=== PATIENT | female | born 1940 | race Caucasian/White ===

== ENCOUNTER 2017-01-08 09:57 | Outpatient (CLI) | payer MEDICARE, OTHER ==
--- NOTE | 2017-01-08 15:18 | DEXA Report ---
DEXA SCAN: 01/08/2017 CLINICAL INDICATION: Osteoporosis. TECHNIQUE: Dual energy x-ray absorptiometry (DXA) was performed on a [employer] - ASO system. Regions measured are the AP spine, femoral neck, and, if needed, forearm. COMPARISON: None. In accordance with the International Society for Clinical Densitometry (ISCD) guidelines, data from previous exams may be reanalyzed using current recommendations and techniques. This is done to allow a more accurate basis for comparison with the current study. FINDINGS: The data for the hip is as follows: REGION BMD (g/cm/cm) T-SCORE Z-SCORE Neck 0.922 -0.8 1.3 TOTAL 0.832 -1.4 0.6 NOTE: The femoral neck or total proximal femur, whichever is lowest, is used for classification. The data for the forearm is as follows: REGION BMD (g/cm/cm) T-SCORE Z-SCORE 1/3 0.512 -4.2 -1.9 NOTE: The 33% radius of the nondominant forearm is used for classification. IMPRESSION: 1. THE WHO CLASSIFICATION BASED ON THE INTERNATIONAL REFERENCE STANDARD IS OSTEOPOROSIS (REFERENCE DISTAL THIRD LEFT RADIUS). 2. LEFT FOREARM EVALUATION PERFORMED SECONDARY TO PREVIOUS LUMBAR SPINE FUSION. RECOMMENDATION: Patients with diagnosis of osteoporosis or osteopenia should have regular bone mineral density assessment. For those eligible for Medicare, routine testing is allowed once every 2 years. Testing frequency can be increased for patients who have rapidly progressing disease or for those who are receiving medical therapy to restore bone mass. COMMENT: World Health Organization (WHO) definitions for osteoporosis and osteopenia: NORMAL BMD: T-score at -1.0 or higher, fracture risk is low. OSTEOPENIA BMD: T-score between -1.0 and -2.5, fracture risk is increased. OSTEOPOROSIS BMD: T-score at -2.5 or lower, fracture risk high. National Osteoporosis Foundation recommends: 1. Obtain adequate dietary calcium (at least 1200 mg per day) and vitamin D (400 -800 international units per day). 2. Participate, as appropriate, in regular weightbearing and muscle- strengthening exercise. 3. Avoid tobacco use and reduce alcohol and caffeine intake. 4. For more detailed information see the website at www.NOF.org. MTDD
== END 2017-01-08 09:58 | disposition home or self-care (01) ==
LOC: DI 09:57
PROVIDERS: ATTEND Family Medicine
DX: M81.0 Age-related osteoporosis without current pathological fracture (principal)
CPT/HCPCS: 77080; 77081

== ENCOUNTER 2017-01-20 15:20 | Outpatient (CLI) | payer MEDICARE, OTHER ==
--- NOTE | 2017-01-21 11:43 | XRAY Report ---
RIGHT HIP AND PELVIS: 01/20/2017 CLINICAL INDICATION: Right hip pain. COMPARISON: 06/10/2007 FINDINGS: Frontal view of the hips and pelvis and frogleg lateral view of the right hip demonstrate no evidence of acute fracture. Mild osteoarthritis is present, with chondrocalcinosis. There has been interval spinal fusion, with hardware extending to S1 and the iliac crest. IMPRESSION: MILD OSTEOARTHRITIS, WITH CHONDROCALCINOSIS. NO EVIDENCE OF ACUTE FRACTURE. MTDD
--- NOTE | 2017-01-21 11:44 | XRAY Report ---
TWO-VIEW RIGHT KNEE: 01/20/2017 CLINICAL INDICATION: Pain. FINDINGS: Standing frontal and lateral views of the right knee demonstrate mild osteoarthritis, with chondrocalcinosis. There is no evidence of fracture. No effusion is present. IMPRESSION: MILD OSTEOARTHRITIS. MTDD
== END 2017-01-20 15:21 | disposition home or self-care (01) ==
LOC: DI 15:20
PROVIDERS: ATTEND Family Medicine
DX: M16.11 Unilateral primary osteoarthritis, right hip (principal); M11.251 Other chondrocalcinosis, right hip; M17.12 Unilateral primary osteoarthritis, left knee

== ENCOUNTER 2017-02-18 14:41 | Outpatient (CLI) | payer MEDICARE, OTHER ==
[2017-02-18 19:25] LABS: BASOPHILS % (AUTO) 0.8 %; EOSINOPHILS # (AUTO) 0.1 10^3/uL (0.0-0.7); HCT - HEMATOCRIT 37.2 % (37.0-47.0); HGB - HEMOGLOBIN 12.3 g/dL (12.0-16.0); LYMPHOCYTES # (AUTO) 2.3 10^3/uL (1.5-3.5); LYMPHOCYTES % (AUTO) 40.4 %; MEAN CORPUSCULAR VOLUME 90.7 fL (81.0-99.0); MEAN PLATELET VOLUME 8.1 fL (7.9-10.8); MONOCYTES # (AUTO) 0.7 10^3/uL (0.0-1.0); MONOCYTES % (AUTO) 12.2 %; NEUTROPHILS # (AUTO) 2.6 10^3/uL (1.5-6.6); NEUTROPHILS % (AUTO) 44.6 %; NUCLEATED RED BLOOD CELLS AUTO 0.1 /100WBC; RED CELL DISTRIBUTION WIDTH 12.8 % (12.0-15.0); UNCORRECTED WHITE BLOOD COUNT 5.8 x10^3/uL; WHITE BLOOD COUNT 5.8 x10^3/uL (4.8-10.8)
[2017-02-18 19:49] LABS: ALBUMIN/GLOBULIN RATIO 1.8 (1.0-2.2); BILIRUBIN,TOTAL 0.7 mg/dL (0.2-1.0); BUN - BLOOD UREA NITROGEN 12 mg/dL (6-20); CALCIUM 9.2 mg/dL (8.5-10.3); CARBON DIOXIDE - CO2 28 mmol/L (21-32); CHLORIDE 100 mmol/L (101-111); CHOL/HDL RATIO 2.5 (<4.4); CHOLESTEROL 181 mg/dL; CREATININE 0.6 mg/dL (0.4-1.0); GFR - MDRD 97 (>89); GLUCOSE 97 mg/dL (70-100); HDL CHOLESTEROL 73 mg/dL; SODIUM 136 mmol/L (135-145); TOTAL PROTEIN 6.6 g/dL (6.7-8.2); TRIGLYCERIDES 39 mg/dL
[2017-02-18 20:15] LABS: LDL CHOLESTEROL,DIRECT 97 mg/dL
== END 2017-02-18 14:42 | disposition home or self-care (01) ==
LOC: LAB.WCP 14:41
PROVIDERS: ATTEND Family Medicine
DX: I70.0 Atherosclerosis of aorta (principal); D46.9 Myelodysplastic syndrome, unspecified
CPT/HCPCS: 36415; 80053; 80061; 85025

== ENCOUNTER 2017-09-13 09:44 | Outpatient (CLI) | payer MEDICARE, OTHER ==
--- NOTE | 2017-09-15 17:39 | Mammography Report ---
DATE OF SERVICE: 09/13/2017 DIGITAL SCREENING MAMMOGRAM: 09/13/2017 CLINICAL INDICATION: A 76-year-old with history of benign right breast biopsy, for screening. COMPARISON: 09/2014, 12/2007. TECHNIQUE: Routine CC and MLO projections were obtained of the breasts. Bilateral laterally exaggerated craniocaudal views. FINDINGS: The breasts again demonstrate heterogeneously dense fibroglandular parenchyma bilaterally. Coarse and punctate, typically benign calcifications are present. Postbiopsy changes in the right breast are stable. No suspicious masses, clustered microcalcifications, or regions of architectural distortion are identified. IMPRESSION: BENIGN FINDINGS. RECOMMENDATION: ROUTINE ANNUAL SCREENING UNLESS OTHERWISE CLINICALLY INDICATED. BIRADS CATEGORY 2-BENIGN FINDINGS. STANDARD QUALIFYING STATEMENTS: 1. This examination was reviewed with the aid of Computer-Aided Detection (CAD). 2. A negative or benign imaging report should not delay biopsy if clinically suspicious findings are present. Consider surgical consultation if warranted. More than 5% of cancers are not identified by imaging. 3. Dense breasts may obscure an underlying neoplasm. TD: 09/15/2017 18:38
== END 2017-09-13 09:45 | disposition home or self-care (01) ==
LOC: DI 09:44
PROVIDERS: ATTEND Family Medicine
DX: Z12.31 Encounter for screening mammogram for malignant neoplasm of breast (principal)
CPT/HCPCS: 77067

== ENCOUNTER 2017-12-23 14:26 | Outpatient (CLI) | payer MEDICARE, OTHER ==
[2017-12-23 19:21] LABS: BASOPHILS % (AUTO) 0.5 %; EOSINOPHILS % (AUTO) 0.4 %; HGB - HEMOGLOBIN 13.2 g/dL (12.0-16.0); LYMPHOCYTES # (AUTO) 1.9 10^3/uL (1.5-3.5); LYMPHOCYTES % (AUTO) 37.2 %; MEAN CORPUSCULAR HEMOGLOBIN 29.3 pg (27.0-31.0); MEAN CORPUSCULAR HGB CONC 32.7 g/dL (32.0-36.0); MEAN CORPUSCULAR VOLUME 89.5 fL (81.0-99.0); MEAN PLATELET VOLUME 8.3 fL (7.9-10.8); MONOCYTES # (AUTO) 0.6 10^3/uL (0.0-1.0); MONOCYTES % (AUTO) 11.5 %; NEUTROPHILS # (AUTO) 2.5 10^3/uL (1.5-6.6); NEUTROPHILS % (AUTO) 50.4 %; PLT - PLATELET COUNT 280 10^3/uL (130-450); RED BLOOD COUNT 4.49 10^6/uL (4.20-5.40); RED CELL DISTRIBUTION WIDTH 13.5 % (12.0-15.0)
[2017-12-23 19:39] LABS: ALBUMIN 4.3 g/dL (3.2-5.5); ALBUMIN/GLOBULIN RATIO 1.8 (1.0-2.2); BILIRUBIN,TOTAL 0.3 mg/dL (0.2-1.0); CALCIUM 8.9 mg/dL (8.5-10.3); CREATININE 0.7 mg/dL (0.4-1.0); TOTAL PROTEIN 6.7 g/dL (6.7-8.2)
== END 2017-12-23 14:27 | disposition home or self-care (01) ==
LOC: LAB.WCP 14:26
PROVIDERS: ATTEND Family Medicine
DX: R11.10 Vomiting, unspecified (principal); D64.9 Anemia, unspecified
CPT/HCPCS: 36415; 80053; 85025

== ENCOUNTER 2018-02-13 12:45 | Outpatient (CLI) | payer MEDICARE, OTHER | END 2018-02-13 12:46 | disposition home or self-care (01) | LOC: DI 12:45 | PROVIDERS: ATTEND Family Medicine | DX: I49.9 Cardiac arrhythmia, unspecified (principal); I51.9 Heart disease, unspecified | CPT/HCPCS: 93306 ==

== ENCOUNTER 2018-10-10 14:01 | Outpatient (CLI) | payer MEDICARE, OTHER ==
--- NOTE | 2018-10-11 14:58 | XRAY Report ---
Reason: FOOT PAIN, RIGHT Procedure Date: 10/10/2018 Accession Number: [id number] / [id number] Procedure: WCP - Foot 3 View RT CPT Code: FULL RESULT: EXAM: RIGHT FOOT RADIOGRAPHY EXAM DATE: 10/10/2018 02:12 PM. CLINICAL HISTORY: Chronic right foot pain. COMPARISON: None. TECHNIQUE: 3 views. FINDINGS: Bones: Decreased mineralization of the bones. No fracture. No focal bone lesion. Small accessory tarsal navicular bone. Joints: Chronic valgus deformities involving the right second and third distal interphalangeal joints. Mild valgus deformity at the right first metatarsophalangeal joint without hallux valgus. Soft Tissues: Prominent soft tissues medial and dorsal to the head of the right first metatarsal bone with curvilinear soft tissue calcifications. Remaining soft tissue structures are unremarkable. IMPRESSION: 1. Curvilinear soft tissue calcifications medial to the head of the right first metatarsal bone, with soft tissue bunion. 2. Valgus deformity involving the right first metatarsophalangeal joint, but without hallux valgus. 3. Decreased mineralization of the bones. 4. Chronic valgus angulation of the distal interphalangeal joints of the right second and third toes. RADIA
== END 2018-10-10 14:02 | disposition home or self-care (01) ==
LOC: DI.WCP 14:01
PROVIDERS: ATTEND Family Medicine
DX: M21.071 Valgus deformity, not elsewhere classified, right ankle (principal); M79.89 Other specified soft tissue disorders

== ENCOUNTER 2018-11-23 13:04 | Outpatient (CLI) | payer MEDICARE, OTHER ==
--- NOTE | 2018-11-23 16:37 | Mammography Report ---
Reason: MASTALGIA Procedure Date: 11/23/2018 Accession Number: [id number] / [id number] Procedure: STEVEN - Diagnostic Dig Bilat CPT Code: FULL RESULT: EXAM: Diagnostic Dig Bilat, Breast Unilateral Limited DATE: 11/23/2018 1:47 PM CLINICAL HISTORY: Focal pain per patient/intermittent palpable lump upper outer right breast for 6 months. No reported personal or family history of breast cancer. TECHNIQUE: (B) - Bilateral Bilateral CC and MLO views were obtained. Additional 90 degree right breast 2-D 3-D imaging was obtained. Real-time ultrasound of the right breast was performed by both the technologist and the radiologist. COMPARISON: 09/13/2017 through 10/11/2014 PARENCHYMAL PATTERN: (D) - The breasts demonstrate heterogeneously dense fibroglandular parenchyma bilaterally. FINDINGS: Right breast: There are no suspicious masses, calcifications or areas of nonoperative distortion. Stable operative changes after prior excisional biopsy in the central breast. There is no mammographic finding of concern in the region of focal pain per patient upper outer breast posterior middle depth, marked with a BB. Targeted breast ultrasound is performed. Area of clinical symptoms of focal pain per patient and focal fullness at exam was reproduced at physical exam. The area corresponds to normal ridge of fibroglandular tissue; no masses or concerning sonographic findings. 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 Left breast: There are no suspicious masses, calcifications, or areas of distortion. IMPRESSION: Right breast: Benign imaging findings. No imaging finding of concern in the region of the focal symptoms per patient. Benign. BI-RADS Category 2. Clinical follow-up for symptoms is recommended. Patient was advised to return for further evaluation for any increase in current symptoms or new symptoms/concerns. Otherwise recommend annual screening mammography. Left breast: Negative. BI-RADS Category 1. Recommend annual screening mammography. RECOMMENDATION: (ANNUAL) - Recommend routine annual screening mammography. BI-RADS CATEGORY: (2) - Benign Findings STANDARD QUALIFYING STATEMENTS: 1. This examination was not reviewed with the aid of Computer-Aided Detection (CAD). 2. A negative or benign imaging report should not preclude biopsy if clinically suspicious findings are present. 3. Dense breasts may obscure an underlying neoplasm. 4. This examination was reviewed with the aid of 3D breast imaging (tomosynthesis).
== END 2018-11-23 13:05 | disposition home or self-care (01) ==
LOC: DI 13:04
PROVIDERS: ATTEND Family Medicine
DX: N64.4 Mastodynia (principal)
CPT/HCPCS: 76642; 77066

== ENCOUNTER 2019-05-01 08:00 | Outpatient (CLI) | payer MEDICARE, OTHER | END 2019-05-01 23:59 | disposition home or self-care (01) | LOC: LAB.R 08:00 | PROVIDERS: ATTEND Physician Assistant Medical | DX: R30.0 Dysuria (principal) | CPT/HCPCS: 87086 ==

== ENCOUNTER 2019-07-27 13:46 | Outpatient (CLI) | payer MEDICARE, OTHER | END 2019-07-27 13:47 | disposition critical access hospital (66) | LOC: EMS 13:46 | PROVIDERS: ATTEND Surgery | DX: R07.2 Precordial pain (principal); R06.02 Shortness of breath; R03.1 Nonspecific low blood-pressure reading; R42 Dizziness and giddiness | CPT/HCPCS: A0425; A0427 ==

== ENCOUNTER 2019-07-27 14:07 | Emergency (ER) | payer MEDICARE, OTHER ==
--- NOTE | 2019-07-27 14:23 | ED Physician Documentation ---
PD HPI CHEST PAIN - Stated complaint Stated Complaint: CP - Chief complaint Chief Complaint: Cardiac - History obtained from History obtained from: Patient (She was at the doctor's office today sitting in the waiting room and she started to feel substernal chest pressure. This happened maybe around 1245. She was referred in from the doctor's office for further evaluation and treatment. She describes it is a lower to mid sternal pressure which is nonradiating. She felt otherwise funny but denied shortness of breath. No pedal edema or calf pain.She had aspirin prior to arrival and nitroglycerin which she says was not really helpful. She has a chronically abnormal EKG, had a preop work-up last year before shoulder replacement which was negative. 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: Hysterectomy HEENT: Cataracts, Tonsil/Adenoidectomy - Present Medications Home Medications: Ambulatory Orders Medication Instructions Recorded Confirmed Pramipexole [Mirapex] 0.25 mg PO DAILY 05/24/13 03/29/14 Multivitamin [Multi-Vitamin Daily] 1 each PO DAILY 05/25/13 03/29/14 Calcium Carb, Citrate/Vit D3 1 ea PO DAILY 03/29/14 03/29/14 [Citracal + D ER Tablet] Cholecalciferol (Vitamin D3) 1,000 unit PO DAILY 03/29/14 03/29/14 [Vitamin D] Gabapentin 200 mg PO BID 03/29/14 03/29/14 - Allergies Allergies/Adverse Reactions: Allergies Allergy/AdvReac Type Severity Reaction Status Date / Time Penicillins Allergy Mild Rash Verified 07/27/19 14:17 Tetracyclines Allergy Mild Rash Verified 07/27/19 14:17 PD ED PE NORMAL - Vitals Vital signs reviewed: Yes - General General: Alert and oriented X 3, No acute distress - HEENT HEENT: PERRL, EOMI - Neck Neck: Supple, no meningeal sign, No bony TTP - Cardiac Cardiac: RRR, No murmur - Respiratory Respiratory: No respiratory distress, Clear bilaterally - Abdomen Abdomen: Non tender - Extremities Extremities: No edema, No calf tenderness / cord - Neuro Neuro: Alert and oriented X 3, Normal speech Results - Vitals Vitals: Vital Signs - 24 hr 07/27/19 07/27/19 07/27/19 14:07 14:59 15:15 Temperature 98.2 C H Heart Rate 67 60 55 L Respiratory 18 14 14 Rate Blood Pressure 129/77 117/69 114/64 O2 Saturation 100 98 99 07/27/19 07/27/19 15:41 16:59 Temperature Heart Rate 58 L 63 Respiratory 14 15 Rate Blood Pressure 123/62 124/59 L O2 Saturation 97 98 Oxygen O2 Source Room air - EKG (time done) 1410 Rate: Rate (enter#) (62) Rhythm: NSR (With PAC) [place]: LAD Ischemia: Normal ST segments. No: ST elevation c/w ischemia, ST depression Computer interpretation: Agree with computer - Labs Labs: Laboratory Tests 07/27/19 07/27/19 07/27/19 14:25 14:25 14:25 WBC 7.3 RBC 4.12 L Hgb 12.2 Hct 38.8 MCV 94.2 MCH 29.6 MCHC 31.4 L RDW 12.7 Plt Count 276 MPV 9.2 Neut # (Auto) 3.8 Lymph # (Auto) 2.4 [place] # (Auto) 0.9 Eos # (Auto) 0.1 Baso # (Auto) 0.1 Absolute Nucleated RBC 0.00 Nucleated RBC % 0.0 Sodium 139 Potassium 4.0 Chloride 102 Carbon Dioxide 28 Anion Gap 9.0 BUN 20 Creatinine 0.8 Estimated GFR (MDRD) 70 L Glucose 101 H Calcium 9.5 Total Bilirubin 0.4 AST 18 ALT 13 Alkaline Phosphatase 46 Troponin I High Sens 4.4 Total Protein 7.2 Albumin 4.3 Globulin 2.9 Albumin/Globulin Ratio 1.5 Lipase 29 07/27/19 16:41 WBC RBC Hgb Hct MCV MCH MCHC RDW Plt Count MPV Neut # (Auto) Lymph # (Auto) [place] # (Auto) Eos # (Auto) Baso # (Auto) Absolute Nucleated RBC Nucleated RBC % Sodium Potassium Chloride Carbon Dioxide Anion Gap BUN Creatinine Estimated GFR (MDRD) Glucose Calcium Total Bilirubin AST ALT Alkaline Phosphatase Troponin I High Sens 3.2 Total Protein Albumin Globulin Albumin/Globulin Ratio Lipase PD MEDICAL DECISION MAKING - ED course ED course: 78-year-old woman with non-typical chest pain starting today. Pretty mild here but persistence but delta troponins were negative and low. Departure - Departure Disposition: Home, Self Care Clinical Impression: Chest pain Qualifiers: Chest pain type: unspecified Qualified Code(s): R07.9 - Chest pain, unspecified Condition: Good Record reviewed to determine appropriate education?: Yes Instructions: ED Chest Pain NonCardiac Comments: Call your doctor to arrange a follow-up appointment, make the next available appointment. In the interim, return anytime if worse or if new symptoms develop.
[2019-07-27 14:33] LABS: BASOPHILS # (AUTO) 0.1 10^3/uL (0.0-0.1); BASOPHILS % (AUTO) 0.8 %; EOSINOPHILS # (AUTO) 0.1 10^3/uL (0.0-0.7); HGB - HEMOGLOBIN 12.2 g/dL (12.0-16.0); LYMPHOCYTES # (AUTO) 2.4 10^3/uL (1.5-3.5); LYMPHOCYTES % (AUTO) 33.3 %; MEAN CORPUSCULAR HEMOGLOBIN 29.6 pg (27.0-31.0); MEAN CORPUSCULAR HGB CONC 31.4 g/dL (32.0-36.0); MEAN CORPUSCULAR VOLUME 94.2 fL (81.0-99.0); MEAN PLATELET VOLUME 9.2 fL (7.9-10.8); MONOCYTES # (AUTO) 0.9 10^3/uL (0.0-1.0); MONOCYTES % (AUTO) 11.8 %; NEUTROPHILS # (AUTO) 3.8 10^3/uL (1.5-6.6); NEUTROPHILS % (AUTO) 52.7 %; PLT - PLATELET COUNT 276 10^3/uL (130-450); RED BLOOD COUNT 4.12 10^6/uL (4.20-5.40); RED CELL DISTRIBUTION WIDTH 12.7 % (12.0-15.0); WHITE BLOOD COUNT 7.3 x10^3/uL (4.8-10.8)
[2019-07-27 14:47] LABS: ALBUMIN 4.3 g/dL (3.2-5.5); ALBUMIN/GLOBULIN RATIO 1.5 (1.0-2.2); BILIRUBIN,TOTAL 0.4 mg/dL (0.2-1.0); CALCIUM 9.5 mg/dL (8.5-10.3); CREATININE 0.8 mg/dL (0.4-1.0); TOTAL PROTEIN 7.2 g/dL (6.7-8.2)
--- NOTE | 2019-07-27 14:56 | XRAY Report ---
Reason: chest pain Procedure Date: 07/27/2019 Accession Number: [id number] / [id number] Procedure: XR - Chest 1 View X-Ray CPT Code: 60340 Final Report FULL RESULT: EXAM: CHEST RADIOGRAPHY EXAM DATE: 07/27/2019 02:41 PM. CLINICAL HISTORY: Chest pain. COMPARISON: None. TECHNIQUE: 2 view. FINDINGS: LUNGS: Biapical pleural/parenchymal thickening. The lungs are otherwise clear. PLEURA: No significant pleural effusion. No clinically significant pneumothorax. MEDIASTINUM: The cardiomediastinal silhouette is unremarkable. BONES: Status post thoracolumbar fusion which is partially imaged. Status post left rotator cuff repair and right reverse total shoulder arthroplasty. IMPRESSION: No acute cardiopulmonary abnormality. RADIA
[2019-07-27 17:37] VITALS: BP 135/67
== END 2019-07-27 17:42 | disposition home or self-care (01) ==
LOC: EDUNIT# → ED 14:07
DX: R07.9 Chest pain, unspecified (principal)
CPT/HCPCS: 36415; 71045; 80053; 83690; 84484; 85025; 93005; 99284

== ENCOUNTER 2019-08-02 13:23 | Emergency (ER) | payer MEDICARE, OTHER ==
--- NOTE | 2019-08-02 14:46 | ED Physician Documentation ---
PD HPI SYNCOPE - Stated complaint Stated Complaint: DIZZY/SOA - Chief complaint Chief Complaint: Resp - History obtained from History obtained from: Patient - History of Present Illness Witnessed: Unwitnessed Timing - onset: Today Duration: Hours (onset of feeling dizzy and off balance (felt like "i was on a ship that was falling forward over a wave") and was veering to the left when tried walking to bathroom. No focal weakness. No visual change. Was by herself so was not talking, but subsequently did call for help and was able to converse okay. Noted feeling some dyspnea and lightheaded as well, that developed after up and walking. Noted the dizziness first when getting up out of bed. Symptoms faded after about 1/2 hour. Feeling just some movement feeling with head ROM, but not feeling ataxic.) Preceding symptoms: No: Chest pain, Dyspnea, Abdominal pain, Light headed Associated symptoms: Headache (mild), Dyspnea. No: Chest pain, Abdominal pain Contributing factors: Decreased PO intake, Just stood up (rolled over in bed and felt some dizziness then worse getting up). No: Recent med change, Noxious stimulae Injury occurred: No: Fell Similar symptoms before: Has not had sx before Recently seen: Emergency Dept (had chest pain episode but work up negative for DC.) Review of Systems Constitutional: denies: Fever, Chills Nose: denies: Rhinorrhea / runny nose, Congestion Throat: denies: Sore throat Respiratory: denies: Cough GI: denies: Abdominal Pain, Nausea (but less appetite recently), Vomiting, Diarrhea : denies: Dysuria Musculoskeletal: denies: Neck pain, Back pain Neurologic: reports: Generalized weakness. 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 HEENT: Cataracts, Tonsil/Adenoidectomy - Present Medications Home Medications: Ambulatory Orders Medication Instructions Recorded Confirmed Pramipexole [Mirapex] 0.25 mg PO DAILY 05/24/13 03/29/14 Multivitamin [Multi-Vitamin Daily] 1 each PO DAILY 05/25/13 03/29/14 Calcium Carb, Citrate/Vit D3 1 ea PO DAILY 03/29/14 03/29/14 [Citracal + D ER Tablet] Cholecalciferol (Vitamin D3) 1,000 unit PO DAILY 03/29/14 03/29/14 [Vitamin D] Gabapentin 200 mg PO BID 03/29/14 03/29/14 Meclizine [Antivert] 25 mg PO Q6H PRN #30 tablet 08/02/19 dexAMETHasone [Decadron] 4 mg PO DAILY #5 tablet 08/02/19 - Allergies Allergies/Adverse Reactions: Allergies Allergy/AdvReac Type Severity Reaction Status Date / Time Penicillins Allergy Mild Rash Verified 07/27/19 14:17 Tetracyclines Allergy Mild Rash Verified 07/27/19 14:17 - Social History Does the pt smoke?: No Smoking Status: Never smoker Does the pt drink ETOH?: Yes Does the pt have substance abuse?: No - Immunizations Immunizations are current?: Yes PD ED PE NORMAL - Vitals Vital signs reviewed: Yes - General General: Alert and oriented X 3, No acute distress, Well developed/nourished - HEENT HEENT: PERRL, EOMI (no nystagmus noted), Ears normal, Pharynx benign, Other (hard to assess head impulse test as symptoms mostly faded now. 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 ) Eye Opening: Spontaneous Motor: Obeys Commands Verbal: Oriented GCS Score: 15 - Psych Psych: Normal mood, Normal affect Results - Vitals Vitals: Vital Signs - 24 hr 08/02/19 08/02/19 08/02/19 13:39 14:53 15:20 Temperature 36.7 C Heart Rate 66 60 72 Respiratory 18 22 20 Rate Blood Pressure 132/67 H 160/75 H 146/108 H O2 Saturation 100 100 100 08/02/19 08/02/19 08/02/19 16:32 17:25 18:36 Temperature Heart Rate 64 64 87 Respiratory 16 16 18 Rate Blood Pressure 147/71 H 142/66 H 135/68 H O2 Saturation 99 95 100 Oxygen O2 Source Room air - Labs Labs: Laboratory Tests 08/02/19 08/02/19 08/02/19 16:00 16:00 16:00 WBC 7.2 RBC 3.95 L Hgb 11.9 L Hct 36.8 L MCV 93.2 MCH 30.1 MCHC 32.3 RDW 12.7 Plt Count 272 MPV 9.6 Neut # (Auto) 4.7 Lymph # (Auto) 1.8 [place] # (Auto) 0.6 Eos # (Auto) 0.1 Baso # (Auto) 0.1 Absolute Nucleated RBC 0.00 Nucleated RBC % 0.0 Sodium 138 Potassium 3.7 Chloride 103 Carbon Dioxide 25 Anion Gap 10.0 BUN 14 Creatinine 0.6 Estimated GFR (MDRD) 97 Glucose 89 Calcium 9.5 Magnesium 2.2 Total Bilirubin 0.7 AST 19 ALT 13 Alkaline Phosphatase 44 Troponin I High Sens 4.4 B-Natriuretic Peptide Total Protein 7.0 Albumin 4.3 Globulin 2.7 Albumin/Globulin Ratio 1.6 Lipase 25 08/02/19 16:00 WBC RBC Hgb Hct MCV MCH MCHC RDW Plt Count MPV Neut # (Auto) Lymph # (Auto) [place] # (Auto) Eos # (Auto) Baso # (Auto) Absolute Nucleated RBC Nucleated RBC % Sodium Potassium Chloride Carbon Dioxide Anion Gap BUN Creatinine Estimated GFR (MDRD) Glucose Calcium Magnesium Total Bilirubin AST ALT Alkaline Phosphatase Troponin I High Sens B-Natriuretic Peptide 110 H Total Protein Albumin Globulin Albumin/Globulin Ratio Lipase - Rads (name of study) head and neck angio Radiology: Prelim report reviewed (no acute brain findings and no flow abnormalities), See rad report PD MEDICAL DECISION MAKING - ED course Complexity details: considered differential (symptoms sound more peripheral vertigo and has normal head CT/angio. Certainly is not completely accurate for posterior fossa changes. But her symptoms are gone and feeling better. Consider TIA posterior circulation vs peripheral vertigo. ), d/w patient Departure - Departure Disposition: 01 Home, Self Care Clinical Impression: Dizziness Dyspnea Qualifiers: Dyspnea type: shortness of breath Qualified Code(s): R06.02 - Shortness of breath Condition: Stable Record reviewed to determine appropriate education?: Yes Instructions: ED Vertigo Unspecified Follow-Up: Richar Hoang DO [Primary Care Provider] - Prescriptions: dexAMETHasone [Decadron] 4 mg PO DAILY #5 tablet Meclizine [Antivert] 25 mg PO Q6H PRN #30 tablet PRN Reason: Vertigo Comments: Your chest x-ray and EKG and blood tests are normal. I do not see an neck obvious cause for your feeling of shortness of breath. Your heart rhythm and oxygenation are good as well. Regarding the dizzy feeling and off-balance, it sounds likely to be in your ear problem. For that take Decadron daily for the next several days presuming some inflammation in the inner ear. Also meclizine every 6 hours if needed for dizziness. Recheck if not improving well over the next few days. Return if worsening Discharge Date/Time: 08/02/19 18:56
[2019-08-02] MEDS ORDERED: IOVERSOL 320 100 ML VIAL IVP ONE ×2 (15:25→16:49)
--- NOTE | 2019-08-02 15:51 | XRAY Report ---
Reason: dyspnea Procedure Date: 08/02/2019 Accession Number: [id number] / [id number] Procedure: XR - Chest 1 View X-Ray CPT Code: 52261 Final Report FULL RESULT: EXAM: CHEST RADIOGRAPHY EXAM DATE: 08/02/2019 03:41 PM. CLINICAL HISTORY: Dyspnea. COMPARISON: CHEST 1 VIEW 07/27/2019 2:25 PM. TECHNIQUE: 1 view. FINDINGS: Lungs/Pleura: No focal opacities evident. No pleural effusion. No pneumothorax. Mediastinum: Within exam limitations, the cardiomediastinal contour is normal. Ectatic aorta Other: Thoracolumbar fusion. Right shoulder reverse arthroplasty. Left shoulder anchor IMPRESSION: No active cardiopulmonary disease RADIA
[2019-08-02 16:11] LABS: BASOPHILS # (AUTO) 0.1 10^3/uL (0.0-0.1); BASOPHILS % (AUTO) 0.7 %; EOSINOPHILS # (AUTO) 0.1 10^3/uL (0.0-0.7); EOSINOPHILS % (AUTO) 0.7 %; HGB - HEMOGLOBIN 11.9 g/dL (12.0-16.0); LYMPHOCYTES # (AUTO) 1.8 10^3/uL (1.5-3.5); LYMPHOCYTES % (AUTO) 25.3 %; MEAN CORPUSCULAR HEMOGLOBIN 30.1 pg (27.0-31.0); MEAN CORPUSCULAR HGB CONC 32.3 g/dL (32.0-36.0); MEAN CORPUSCULAR VOLUME 93.2 fL (81.0-99.0); MEAN PLATELET VOLUME 9.6 fL (7.9-10.8); MONOCYTES # (AUTO) 0.6 10^3/uL (0.0-1.0); MONOCYTES % (AUTO) 8.2 %; NEUTROPHILS # (AUTO) 4.7 10^3/uL (1.5-6.6); NEUTROPHILS % (AUTO) 64.8 %; PLT - PLATELET COUNT 272 10^3/uL (130-450); RED BLOOD COUNT 3.95 10^6/uL (4.20-5.40); RED CELL DISTRIBUTION WIDTH 12.7 % (12.0-15.0); WHITE BLOOD COUNT 7.2 x10^3/uL (4.8-10.8)
[2019-08-02 16:26] LABS: ALBUMIN 4.3 g/dL (3.2-5.5); ALBUMIN/GLOBULIN RATIO 1.6 (1.0-2.2); BILIRUBIN,TOTAL 0.7 mg/dL (0.2-1.0); CALCIUM 9.5 mg/dL (8.5-10.3); CREATININE 0.6 mg/dL (0.4-1.0); MAGNESIUM 2.2 mg/dL (1.7-2.8)
--- NOTE | 2019-08-02 17:24 | CT Report ---
Reason: L sided facial droop, L neck pain Procedure Date: 08/02/2019 Accession Number: [id number] / [id number] Procedure: CT - ANGIO NECK W CPT Code: Final Report FULL RESULT: CT ANGIOGRAM NECK: INDICATION: 78-year-old female. Left facial droop and neck pain. TECHNIQUE: 80 cc of Optiray-320 contrast were injected at a rapid rate through a large bore, right antecubital intravenous catheter. The neck was scanned helically during arterial phase. The data was reconstructed in 2.5 mm axial images. In addition, MIP reconstructions have been generated to better assess the extracranial carotid and vertebral arteries. Significant arterial stenoses will be assessed using NASCET type measurements. In accordance with CT protocol optimization, one or more of the following dose reduction techniques were utilized for this exam: automated exposure control, adjustment of mA and/or KV based on patient size, or use of iterative reconstructive technique. COMPARISON: None. FINDINGS: There is normal branching of the aortic arch. There is minor calcified plaque at the origin of the left subclavian artery without associated stenosis. The first order, supra-aortic arteries appear widely patent. Right carotid artery: A short segment of the proximal common carotid artery is partially obscured due to beam hardening artifact from dense contrast in adjacent venous structures. Grossly no pathology is demonstrated. The common carotid artery is otherwise well seen and appears widely patent throughout. There is minimal calcified plaque at the carotid bifurcation without associated stenosis. The extracranial ICA is widely patent throughout. Noted is elongation and tortuosity of the ICA with prominent hairpin loops in the distal cervical segment. Left carotid artery: Widely patent throughout. Right vertebral artery: There is minimal narrowing at the origin from noncalcified atherosclerotic plaque. The V1 segment is otherwise unremarkable. The V2 and V3 segments appear widely patent throughout. Left vertebral artery: Widely patent at origin and throughout V1 segment. There is mild narrowing in the V2 segment at C5 level (see images 244 through 247) of uncertain etiology, possibly due to noncalcified plaque in the posterior lateral wall. No intimal flap is identified to suggest focal dissection. The V2 segment is otherwise widely patent. The V3 segment is widely patent. There is scarring of the pulmonary apices bilaterally. No discrete mass/nodule is demonstrated in the imaged upper lungs. There is multilevel degenerative change in the cervical spine. Noted multiple, cystic lesions in the dens and at the base of the dens, probably secondary to degenerative disease and predisposing of the odontoid process to fracture due to thinning of the bone. Also demonstrated are amorphous calcifications, surrounding the odontoid process, suggesting the possibility of CPPD. There is evidence of a very advanced, degenerative disk disease at C5-C6 and C6-C7 with marked disk space narrowing at both levels. Grossly and no high-grade spinal stenosis is demonstrated. IMPRESSION: 1. There is minimal atherosclerotic disease at the carotid bifurcations without associated stenosis. 2. No evidence of dissection or significant stenosis in the extracranial vertebral arteries. 3. Noted are fairly advanced degenerative changes in the cervical spine, briefly documented above. RADIA
--- NOTE | 2019-08-02 17:45 | CT Report ---
Reason: L sided facial droop Procedure Date: 08/02/2019 Accession Number: [id number] / [id number] Procedure: CT - ANGIO HEAD W/WO CPT Code: Final Report FULL RESULT: EXAM: CT ANGIOGRAM HEAD. CT SCAN OF THE HEAD WITHOUT AND WITH CONTRAST. EXAM DATE: 08/02/2019 04:35 PM CLINICAL HISTORY: Left sided facial droop. COMPARISON: NECK ANGIO 08/02/2019 4:24 PM. TECHNIQUE: - CT Scan Head: Using a multidetector scanner, axial images were acquired from the foramen magnum to the skull vertex prior to and following contrast administration. - CT Angiogram: Using a multidetector scanner, high-resolution axial images were acquired from the skull base through vertex following rapid infusion of intravenous contrast. Reformats: Multiplanar MIP reformats were reconstructed. Nascet criteria used for stenosis measurement. IV Contrast: OPTI 320 80ML. In accordance with CT protocol optimization, one or more of the following dose reduction techniques were utilized for this exam: automated exposure control, adjustment of mA and/or KV based on patient size, or use of iterative reconstructive technique. FINDINGS: Non Contrast Head: There is no mass, mass effect, midline shift or abnormal extraaxial fluid collection. Size and configuration of the ventricles appear normal. There is no intracranial hemorrhage. Boyer white matter differentiation is maintained. Brain stem and cerebellum appear unremarkable. Ill-defined hypodensities in the periventricular cerebral white matter, nonspecific, most likely chronic microvascular angiopathy. There are atherosclerotic calcifications of bilateral cavernous carotid and proximal vertebral arteries Calvarium and skull base appear intact and normal. Orbits and extracranial soft tissue appear unremarkable. Post contrast CT Head: No abnormal enhancement. Boyer white matter differentiation appear preserved. Dural venous sinus and deep cerebral veins appear normal. CTA HEAD: Anterior Circulation: The internal carotid arteries (ICA), middle cerebral arteries (MCA), and anterior cerebral arteries (ANOOP) are patent bilaterally. The anterior communicating artery (A-COM) appears patent. No aneurysms, stenoses, or anatomic anomalies evident. Posterior Circulation: Proximal basilar fenestration, normal variant. The superior vertebral artery, basilar, and posterior cerebral arteries (PRESCHOOL ADVISER) are patent. No aneurysms, stenoses, or anomalies evident. The posterior communicating arteries (P-COM) are patent bilaterally. Significant degenerative changes of the atlanto axial articulation, see CT neck angio for more details. IMPRESSION: CT Head: No acute intracranial abnormality. Specifically, no evidence of acute infarct, hemorrhage, or mass lesion. No abnormal enhancement. CTA Head: No significant intracranial arterial stenosis. No evidence for aneurysm. RADIA
[2019-08-02] MEDS ORDERED: DEXAMETHASONE 10 MG/ML VIAL IVP STA (18:02)
[2019-08-02] MEDS ORDERED: MECLIZINE 12.5 MG TABLET PO STA (18:02)
[2019-08-02 18:37] VITALS: BP 135/68
== END 2019-08-02 18:56 | disposition home or self-care (01) ==
LOC: ED 13:23
DX: R42 Dizziness and giddiness (principal); R06.02 Shortness of breath; R53.1 Weakness
CPT/HCPCS: 36415; 70496; 70498; 71045; 80053; 83690; 83735; 83880; 84484; 85025; 93005; 99284; A9270; Q9967

== ENCOUNTER 2019-10-04 11:19 | Outpatient (CLI) | payer MEDICARE, OTHER ==
--- NOTE | 2019-10-04 17:16 | XRAY Report ---
Reason: BACK PAIN THORACIC REGION, ELDERLY FALL Procedure Date: 10/04/2019 Accession Number: [id number] / [id number] Procedure: WCP - Thoracic Spine 2 View CPT Code: Final Report FULL RESULT: EXAM: THORACIC SPINE RADIOGRAPHY EXAM DATE: 10/04/2019 11:24 AM. CLINICAL HISTORY: BACK PAIN THORACIC REGION, ELDERLY FALL. COMPARISON: CHEST 1 VIEW 08/02/2019 3:27 PM. TECHNIQUE: 2 views. FINDINGS: Alignment: There is a 56 degree thoracic kyphosis. Stable lumbar dextroscoliosis with mild compensatory thoracic levocurvature. Bones: Intact multilevel thoracolumbar fusion hardware is only partially visualized but the visualized portion appears intact and stable. 20% lower thoracic compression deformity, likely T9. Likely chronic but not well seen on prior chest x-ray. Disks: Normal. Disk heights are maintained. Soft Tissues: Normal. The visualized lungs and cardiomediastinal silhouette are normal. IMPRESSION: 1. Thoracolumbar fusion hardware, visualized portion appears intact. 2. 56 degree thoracic kyphosis. 3. Likely chronic 20% T9 compression deformity but not well seen on prior chest x-ray. No prior spine x-rays for comparison. RADIA
--- NOTE | 2019-10-04 18:27 | XRAY Report ---
Reason: SHOULDER PAIN Procedure Date: 10/04/2019 Accession Number: [id number] / [id number] Procedure: WCP - Shoulder 2 View LT CPT Code: Final Report FULL RESULT: EXAM: LEFT SHOULDER RADIOGRAPHY EXAM DATE: 10/04/2019 11:17 AM. CLINICAL HISTORY: Shoulder pain. COMPARISON: THORACIC SPINE 2 VIEW 10/04/2019 11:24 AM. TECHNIQUE: 2 views. FINDINGS: Bones: Surgical anchors in the proximal humerus. No acute fracture seen in the proximal humerus. Possible nondisplaced fracture through the base of the acromion. Bones are osteopenic. Joints: The glenohumeral and acromioclavicular joints are normal. Soft tissues: The visualized hemithorax is unremarkable. No soft tissue swelling. IMPRESSION: Questionable nondisplaced fractures of the base of the acromion. If indicated, dedicated scapular views or CT could be considered. RADIA
== END 2019-10-04 23:59 | disposition home or self-care (01) ==
LOC: DI.WCP 11:19
PROVIDERS: ATTEND Family Medicine
DX: M41.9 Scoliosis, unspecified (principal); M25.512 Pain in left shoulder; R93.7 Abnormal findings on diagnostic imaging of other parts of musculoskeletal system; Z98.1 Arthrodesis status
CPT/HCPCS: 72070

== ENCOUNTER 2019-10-05 13:09 | Outpatient (CLI) | payer MEDICARE, OTHER ==
--- NOTE | 2019-10-05 14:13 | CT Report ---
Reason: SHOULDER PAIN LT Procedure Date: 10/05/2019 Accession Number: [id number] / [id number] Procedure: CT - UPPER EXTREMITY WO - LT CPT Code: Final Report FULL RESULT: EXAM: LEFT ELBOW CT WITHOUT CONTRAST EXAM DATE: 10/05/2019 01:36 PM. CLINICAL HISTORY: Shoulder pain, left. COMPARISON: SHOULDER 2 VIEW LT 10/04/2019 11:17 AM images and report from [facility]. TECHNIQUE: Thin-section axial images were acquired of the elbow without contrast. Post-processing: Coronal and sagittal reformats. Other: None. In accordance with CT protocol optimization, one or more of the following dose reduction techniques were utilized for this exam: automated exposure control, adjustment of mA and/or KV based on patient size, or use of iterative reconstructive technique. FINDINGS: Bones: Subacute nondisplaced fracture at the base of the acromion process. Series 7 image 99, series 3 image 66. Some early bony callus formation is noted. Profound osteopenic changes. Surgical stays are seen in the proximal left humerus. Joints: Pseudoarticulation of the superior surface of the humerus with respect to the slightly eroded osseous acromion. Subchondral cystic changes also seen. Moderate amount of calcification seen in the region of the surrounding synovium at the glenohumeral articulation. Series 7 image 89, series 3 image 49. Musculature: Extensive fatty atrophy of the supraspinatus and infraspinatus portions of the rotator cuff. Subscapularis appears normal. Other: Significant fluid collection and a small gas bubble is seen within the substance of the proximal supraspinatus. Series 4 image 58 for example. Coarse opacities in the left apex, doubtful consequence. IMPRESSION: 1. Subacute nondisplaced fracture of the base of the acromion process. Some early bony callus formation is present. 2. Surgical stays at the left proximal humerus, probably from previous rotator cuff repair. Long-standing full-thickness rotator cuff tear with pseudoarticulation and erosion of the undersurface of the acromion secondary to direct contact with the humerus. Subchondral sclerosis and cystic change are noted. 3. Extensive fatty atrophy of the supraspinatus and infraspinatus portions of the cuff. Fluid collection with a small gas bubble seen within the substance of the proximal supraspinatus. RADIA
== END 2019-10-05 13:10 | disposition home or self-care (01) ==
LOC: DI 13:09
PROVIDERS: ATTEND Family Medicine
DX: S42.125A Nondisplaced fracture of acromial process, left shoulder, initial encounter for closed fracture (principal); M75.102 Unspecified rotator cuff tear or rupture of left shoulder, not specified as traumatic

== ENCOUNTER 2020-05-03 07:00 | Outpatient (CLI) | payer MEDICARE, OTHER ==
[2020-05-03 19:33] LABS: BASOPHILS % (AUTO) 0.6 %; EOSINOPHILS % (AUTO) 0.1 %; HGB - HEMOGLOBIN 13.6 g/dL (12.0-16.0); LYMPHOCYTES # (AUTO) 1.7 10^3/uL (1.5-3.5); LYMPHOCYTES % (AUTO) 24.3 %; MEAN CORPUSCULAR HEMOGLOBIN 30.6 pg (27.0-31.0); MEAN CORPUSCULAR HGB CONC 33.7 g/dL (32.0-36.0); MEAN CORPUSCULAR VOLUME 90.8 fL (81.0-99.0); MEAN PLATELET VOLUME 10.3 fL (7.9-10.8); MONOCYTES # (AUTO) 0.8 10^3/uL (0.0-1.0); NEUTROPHILS # (AUTO) 4.3 10^3/uL (1.5-6.6); NEUTROPHILS % (AUTO) 63.7 %; PLT - PLATELET COUNT 267 10^3/uL (130-450); RED BLOOD COUNT 4.44 10^6/uL (4.20-5.40); RED CELL DISTRIBUTION WIDTH 12.9 % (12.0-15.0); WHITE BLOOD COUNT 6.8 x10^3/uL (4.8-10.8)
[2020-05-03 19:54] LABS: ALBUMIN 4.5 g/dL (3.2-5.5); ALBUMIN/GLOBULIN RATIO 1.6 (1.0-2.2); BILIRUBIN,TOTAL 0.5 mg/dL (0.2-1.0); CALCIUM 9.6 mg/dL (8.5-10.3); CREATININE 0.7 mg/dL (0.4-1.0); TOTAL PROTEIN 7.3 g/dL (6.7-8.2)
== END 2020-05-03 07:01 | disposition home or self-care (01) ==
LOC: LAB.WCP 07:00
PROVIDERS: ATTEND Family Medicine
DX: R19.7 Diarrhea, unspecified (principal)
CPT/HCPCS: 36415; 80053; 85025

== ENCOUNTER 2020-05-04 07:00 | Outpatient (CLI) | payer MEDICARE, OTHER | END 2020-05-04 23:59 | disposition home or self-care (01) | LOC: LAB.R 07:00 | PROVIDERS: ATTEND Family Medicine | DX: R19.7 Diarrhea, unspecified (principal) | CPT/HCPCS: 81599; 87329 ==

== ENCOUNTER 2020-05-06 07:00 | Outpatient (CLI) | payer MEDICARE, OTHER | END 2020-05-06 23:59 | disposition home or self-care (01) | LOC: LAB.R 07:00 | PROVIDERS: ATTEND Family Medicine | DX: R19.7 Diarrhea, unspecified (principal) | CPT/HCPCS: 81599; 83630; 87045; 87046; 87427 ==

== ENCOUNTER 2020-05-07 07:00 | Outpatient (CLI) | payer MEDICARE, OTHER | END 2020-05-07 23:59 | disposition home or self-care (01) | LOC: LAB.R 07:00 | PROVIDERS: ATTEND Family Medicine | DX: R19.7 Diarrhea, unspecified (principal) | CPT/HCPCS: 83630; 87493 ==

== ENCOUNTER 2021-02-05 14:38 | Outpatient (CLI) | payer MEDICARE, OTHER ==
--- NOTE | 2021-02-05 17:23 | DEXA Report ---
PROCEDURE: Dexa Spine and/or Hip INDICATIONS: BONE DISORDER TECHNIQUE: Dual energy x-ray absorptiometry (DXA) was performed on a [employer] System. Regions measur ed are the femur, femoral neck, and forearm. Spinal hardware is present preventing use of lumbar spin e for evaluation COMPARISON: None. FINDINGS: Left Hip: Bone Mineral Density 0.816 g/cm/cm,T score -1.5, compared to -1.4 Left Femoral Neck: Bone Mineral Density 0.926 g/cm/cm, T score -0.8, compared to -0.8 Left forearm: Bone Mineral Density 0.4-1 g/cm/cm, T score -4.2, compared to -4.3 (T score greater or equal to -1.0: NORMAL) (T score from -1.1 to -2.4: OSTEOPENIA) (T score less than or equal to -2.5 to: OSTEOPOROSIS) Impression: Stable appearance of osteoporosis within the forearm and osteopenia within the left hip. Patients with diagnosis of osteoporosis or osteopenia should have regular bone mineral density assess ment. For those eligible for Medicare, routine testing is allowed once every 2 years. Testing frequ ency can be increased for patients who have rapidly progressing disease or for those who are receivin g medical therapy to restore bone mass. Reviewed by: Eula Garcia MD on 02/05/2021 5:21 PM PDT Approved by: Eula Garcia MD on 02/05/2021 5:21 PM PDT Station ID: [id number]
== END 2021-02-05 14:39 | disposition home or self-care (01) ==
LOC: DI 14:38
PROVIDERS: ATTEND Family Medicine
DX: M81.0 Age-related osteoporosis without current pathological fracture (principal)

== ENCOUNTER 2021-03-24 13:44 | Outpatient (CLI) | payer MEDICARE, OTHER ==
--- NOTE | 2021-03-25 13:55 | Mammography Report ---
BILATERAL DIGITAL SCREENING MAMMOGRAM 3D/2D: 03/24/2021 CLINICAL: Routine screening. Comparison is made to exams dated: 12/20/2018 mammogram, 12/20/2018 ultrasound, 09/13/2017 mammogram, mammogram, and 01/19/2008 mammogram - [facility]. The tissue of both breas ts is extremely dense, which lowers the sensitivity of mammography. No significant masses, calcifications, or other findings are seen in either breast. There has been no significant interval change. IMPRESSION: NEGATIVE There is no mammographic evidence of malignancy. A 1 year screening mammogram is recommended. This exam was interpreted at Station ID: [id number]. NOTE: For mammograms, a report in lay terms will be sent to the patient. Approximately 15% of breast malignancies will not be visualized mammographically. In the management of a palpable breast mass, a negative mammogram must not discourage biopsy of a clinically suspicious lesion. Electronically Signed By: Adiel Oakley M.D. [email or web address]:03/24/2021 16:29:20 ACR BI-RADS Category 1: Negative 3341F PARENCHYMAL PATTERN: (VD) - The breast(s) demonstrate(s) extremely dense parenchyma, limiting the sen sitivity of mammography. BI-RADS CATEGORY: (1) - 1 RECOMMENDATION: (ANNUAL) - Recommend routine annual screening mammography. 20220325 1 year screening LATERALITY: (B)
== END 2021-03-24 13:45 | disposition home or self-care (01) ==
LOC: DI.N 13:44
DX: Z12.31 Encounter for screening mammogram for malignant neoplasm of breast (principal)

== ENCOUNTER 2021-05-05 08:00 | Outpatient (CLI) | payer MEDICARE, OTHER ==
[2021-05-05 17:48] LABS: BASOPHILS % (AUTO) 0.7 %; EOSINOPHILS # (AUTO) 0.1 10^3/uL (0.0-0.7); HCT - HEMATOCRIT 39.2 % (37.0-47.0); HGB - HEMOGLOBIN 12.1 g/dL (12.0-16.0); LYMPHOCYTES # (AUTO) 1.9 10^3/uL (1.5-3.5); LYMPHOCYTES % (AUTO) 32.2 %; MEAN CORPUSCULAR HEMOGLOBIN 29.8 pg (27.0-31.0); MEAN CORPUSCULAR HGB CONC 30.9 g/dL (32.0-36.0); MEAN CORPUSCULAR VOLUME 96.6 fL (81.0-99.0); MEAN PLATELET VOLUME 9.9 fL (7.9-10.8); MONOCYTES # (AUTO) 0.6 10^3/uL (0.0-1.0); MONOCYTES % (AUTO) 9.8 %; NEUTROPHILS # (AUTO) 3.3 10^3/uL (1.5-6.6); NEUTROPHILS % (AUTO) 55.1 %; PLT - PLATELET COUNT 292 10^3/uL (130-450); RED BLOOD COUNT 4.06 10^6/uL (4.20-5.40); RED CELL DISTRIBUTION WIDTH 13.1 % (12.0-15.0)
[2021-05-05 18:13] LABS: ALBUMIN 4.6 g/dL (3.2-5.5); ALKALINE PHOSPHATASE 43 IU/L (42-121); ALT ALANINE AMINOTRANSFERASE 16 IU/L (10-60); AST ASPARTATE AMINOTRANSFERASE 20 IU/L (10-42); BILIRUBIN,TOTAL 0.6 mg/dL (0.2-1.0); BUN - BLOOD UREA NITROGEN 14 mg/dL (6-20); CALCIUM 9.5 mg/dL (8.5-10.3); CARBON DIOXIDE - CO2 28 mmol/L (21-32); CHLORIDE 99 mmol/L (101-111); CHOL/HDL RATIO 2.5 (<4.4); CHOLESTEROL 207 mg/dL; CREATININE 0.6 mg/dL (0.4-1.0); GFR - MDRD 96 (>89); GLUCOSE 98 mg/dL (70-100); HDL CHOLESTEROL 83 mg/dL; LDL CHOLESTEROL,CALCULATED 113 mg/dL; LDL/HDL RATIO 1.4 (<4.4); POTASSIUM 4.2 mmol/L (3.5-5.0); SODIUM 135 mmol/L (135-145); TOTAL PROTEIN 6.9 g/dL (6.7-8.2); TRIGLYCERIDES 53 mg/dL; VLDL CHOLESTEROL 11 mg/dL
== END 2021-05-05 23:59 | disposition home or self-care (01) ==
LOC: LAB.WCP 08:00
PROVIDERS: ATTEND Family Medicine
DX: I49.8 Other specified cardiac arrhythmias (principal); I70.0 Atherosclerosis of aorta
CPT/HCPCS: 36415; 80053; 80061; 83721; 85025

== ENCOUNTER 2021-12-29 13:33 | Outpatient (CLI) | payer MEDICARE, OTHER ==
--- NOTE | 2021-12-29 15:38 | XRAY Report ---
PROCEDURE: Shoulder 3 View RT INDICATIONS: PAIN IN RT SHOULDER TECHNIQUE: 3 views of the shoulder were acquired. COMPARISON: None. FINDINGS: BONES: No acute, displaced fracture. Shoulder arthroplasty without evidence of hardware components. Mild osteophytosis of the AC joint. SOFT TISSUES: No focal abnormality or appreciable pneumothorax. IMPRESSION: 1.No acute osseous abnormality. Reviewed by: Matt Gil MD on 12/29/2021 3:36 PM PDT Approved by: Matt Gil MD on 12/29/2021 3:36 PM PDT Station ID: [id number]
== END 2021-12-29 13:34 | disposition home or self-care (01) ==
LOC: DI 13:33
PROVIDERS: ATTEND Nurse Practitioner Family
DX: M25.511 Pain in right shoulder (principal)

== ENCOUNTER 2022-02-10 08:00 | Outpatient (CLI) | payer MEDICARE, OTHER ==
--- NOTE | 2022-02-10 10:16 | XRAY Report ---
PROCEDURE: Ankle 3 View RT INDICATIONS: RIGHT LEG EDEMA TECHNIQUE: 3 views of the ankle were acquired. COMPARISON: None FINDINGS: Bones: No acute fractures or dislocations. Congenital ossicle versus ununited remote fracture adjac ent to the medial malleolus. Ankle mortise is normally aligned. No suspicious bony lesions. Soft tissues: No tibiotalar joint effusion. Achilles tendon appears normal. IMPRESSION: No acute fracture. No osseous lesion. If symptoms and/or clinical suspicion for patholog y continue, further assessment with repeat plain films, or advanced imaging (e.g., CT, MRI, or bone s can) is recommended for further assessment. Reviewed by: Dennis Reynoso MD on 02/10/2022 10:15 AM PDT Approved by: Dennis Reynoso MD on 02/10/2022 10:15 AM PDT Station ID: [id number]
--- NOTE | 2022-02-10 11:31 | Ultrasound Report ---
PROCEDURE: Duplex Ext Veins Right INDICATIONS: RIGHT LEG EDEMA TECHNIQUE: Real-time imaging, as well as color and pulse Doppler interrogation, were performed of the lower extr emity deep veins from the inguinal ligament to the popliteal fossa. COMPARISON: None. FINDINGS: The deep veins are normally compressible, and free of intraluminal thrombus. Color and pu lse Doppler demonstrate normal phasic intraluminal flow. There is normal augmentation response to di stal compression maneuver. IMPRESSION: No deep vein thrombosis of the right lower extremity. Reviewed by: Whit Iyer MD on 02/10/2022 11:30 AM PDT Approved by: Whit Iyer MD on 02/10/2022 11:30 AM PDT Station ID: [id number]
== END 2022-02-10 08:01 | disposition home or self-care (01) ==
LOC: DI 08:00
PROVIDERS: ATTEND Physician Assistant Medical
DX: R60.0 Localized edema (principal)

== ENCOUNTER 2022-05-28 15:18 | Outpatient (CLI) | payer MEDICARE, OTHER ==
--- NOTE | 2022-05-29 12:15 | Mammography Report ---
BILATERAL DIGITAL SCREENING MAMMOGRAM 3D/2D: 05/28/2022 CLINICAL: Routine screening. Comparison is made to exams dated: 03/24/2021 mammogram, 12/20/2018 mammogram, 09/13/2017 mammogram, 09/23 mammogram, and 01/19/2008 mammogram - [facility]. Both breasts are extremely dense, which lowers the sensitivity of mammography (category d />75% glan dular tissue). No significant masses, calcifications, or other findings are seen in either breast. There has been no significant interval change. IMPRESSION: NEGATIVE There is no mammographic evidence of malignancy. A 1 year screening mammogram is recommended. Based on the Tyrer Cuzick model (a risk assessment model) the patients lifetime risk is 4.5% and her 10 year risk is 0.0%. According to the ACR, ACS, and NCCN guidelines, an annual breast MRI exam horacio g with mammogram is recommended if the patients lifetime risk is 20% or greater. This exam was interpreted at Station ID: [id number]. NOTE: For mammograms, a report in lay terms will be sent to the patient. Approximately 15% of breast malignancies will not be visualized mammographically. In the management of a palpable breast mass, a negative mammogram must not discourage biopsy of a clinically suspicious lesion. Electronically Signed By: Adiel bishop/karey:05/29/2022 07:41:23 ACR BI-RADS Category 1: Negative 3341F PARENCHYMAL PATTERN: (VD) - The breast(s) demonstrate(s) extremely dense parenchyma, limiting the sen sitivity of mammography. BI-RADS CATEGORY: (1) - 1 RECOMMENDATION: (ANNUAL) - Recommend routine annual screening mammography. [id number] 1 year screening LATERALITY: (B)
== END 2022-05-28 15:19 | disposition home or self-care (01) ==
LOC: DI 15:18
DX: Z12.31 Encounter for screening mammogram for malignant neoplasm of breast (principal)

== ENCOUNTER 2022-06-26 13:40 | Outpatient (CLI) | payer MEDICARE, OTHER ==
[2022-06-26 17:43] LABS: BASOPHILS # (AUTO) 0.1 10^3/uL (0.0-0.1); BASOPHILS % (AUTO) 0.8 %; EOSINOPHILS # (AUTO) 0.1 10^3/uL (0.0-0.7); EOSINOPHILS % (AUTO) 1.4 %; HCT - HEMATOCRIT 37.1 % (37.0-47.0); LYMPHOCYTES # (AUTO) 2.3 10^3/uL (1.5-3.5); LYMPHOCYTES % (AUTO) 35.6 %; MEAN CORPUSCULAR HEMOGLOBIN 29.9 pg (27.0-31.0); MEAN CORPUSCULAR HGB CONC 32.3 g/dL (32.0-36.0); MEAN CORPUSCULAR VOLUME 92.3 fL (81.0-99.0); MEAN PLATELET VOLUME 9.8 fL (7.9-10.8); MONOCYTES # (AUTO) 0.7 10^3/uL (0.0-1.0); MONOCYTES % (AUTO) 10.8 %; NEUTROPHILS # (AUTO) 3.3 10^3/uL (1.5-6.6); NEUTROPHILS % (AUTO) 51.2 %; PLT - PLATELET COUNT 300 10^3/uL (130-450); RED BLOOD COUNT 4.02 10^6/uL (4.20-5.40); WHITE BLOOD COUNT 6.4 x10^3/uL (4.8-10.8)
[2022-06-26 18:05] LABS: ALBUMIN 4.3 g/dL (3.2-5.5); ALBUMIN/GLOBULIN RATIO 1.6 (1.0-2.2); ALKALINE PHOSPHATASE 52 IU/L (42-121); ALT ALANINE AMINOTRANSFERASE < 10 IU/L (10-60); AST ASPARTATE AMINOTRANSFERASE 17 IU/L (10-42); BILIRUBIN,TOTAL 0.5 mg/dL (0.2-1.0); BUN - BLOOD UREA NITROGEN 20 mg/dL (6-20); CALCIUM 9.3 mg/dL (8.5-10.3); CARBON DIOXIDE - CO2 29 mmol/L (21-32); CHLORIDE 100 mmol/L (101-111); CHOL/HDL RATIO 2.3 (<4.4); CHOLESTEROL 207 mg/dL; CREATININE 0.7 mg/dL (0.4-1.0); GFR - MDRD 81 (>89); GLUCOSE 97 mg/dL (70-100); HDL CHOLESTEROL 89 mg/dL; LDL CHOLESTEROL,CALCULATED 103 mg/dL; LDL/HDL RATIO 1.2 (<4.4); POTASSIUM 4.2 mmol/L (3.5-5.0); SODIUM 135 mmol/L (135-145); TRIGLYCERIDES 74 mg/dL; VLDL CHOLESTEROL 15 mg/dL
[2022-06-26 18:14] LABS: THYROID STIMULATING HORMONE 2.04 uIU/mL (0.34-5.60)
== END 2022-06-26 13:41 | disposition home or self-care (01) ==
LOC: LAB.N 13:40
PROVIDERS: ATTEND Family Medicine
DX: M99.02 Segmental and somatic dysfunction of thoracic region (principal); M54.6 Pain in thoracic spine; M50.30 Other cervical disc degeneration, unspecified cervical region; G62.9 Polyneuropathy, unspecified; M81.0 Age-related osteoporosis without current pathological fracture; K21.9 Gastro-esophageal reflux disease without esophagitis; G25.81 Restless legs syndrome; Z79.83 Long term (current) use of bisphosphonates; Z79.899 Other long term (current) drug therapy
CPT/HCPCS: 36415; 80053; 80061; 83721; 84443; 85025

== ENCOUNTER 2023-05-07 15:43 | Outpatient (CLI) | payer MEDICARE, OTHER ==
[2023-05-07 17:58] LABS: BASOPHILS # (AUTO) 0.1 10^3/uL (0.0-0.1); BASOPHILS % (AUTO) 0.6 %; EOSINOPHILS # (AUTO) 0.1 10^3/uL (0.0-0.7); EOSINOPHILS % (AUTO) 0.7 %; HCT - HEMATOCRIT 37.2 % (37.0-47.0); HGB - HEMOGLOBIN 11.8 g/dL (12.0-16.0); LYMPHOCYTES # (AUTO) 2.9 10^3/uL (1.5-3.5); LYMPHOCYTES % (AUTO) 30.7 %; MEAN CORPUSCULAR HEMOGLOBIN 29.8 pg (27.0-31.0); MEAN CORPUSCULAR HGB CONC 31.7 g/dL (32.0-36.0); MEAN CORPUSCULAR VOLUME 93.9 fL (81.0-99.0); MEAN PLATELET VOLUME 9.5 fL (7.9-10.8); MONOCYTES # (AUTO) 0.9 10^3/uL (0.0-1.0); MONOCYTES % (AUTO) 9.9 %; NEUTROPHILS # (AUTO) 5.4 10^3/uL (1.5-6.6); NEUTROPHILS % (AUTO) 57.9 %; PLT - PLATELET COUNT 359 10^3/uL (130-450); RED BLOOD COUNT 3.96 10^6/uL (4.20-5.40); RED CELL DISTRIBUTION WIDTH 12.9 % (12.0-15.0); WHITE BLOOD COUNT 9.4 x10^3/uL (4.8-10.8)
[2023-05-07 18:56] LABS: ALBUMIN 4.4 g/dL (3.2-5.5); ALBUMIN/GLOBULIN RATIO 2.1 (1.0-2.2); ALKALINE PHOSPHATASE 53 IU/L (42-121); ALT ALANINE AMINOTRANSFERASE 12 IU/L (10-60); AST ASPARTATE AMINOTRANSFERASE 16 IU/L (10-42); BILIRUBIN,TOTAL 0.3 mg/dL (0.2-1.0); BUN - BLOOD UREA NITROGEN 15 mg/dL (6-20); CARBON DIOXIDE - CO2 31 mmol/L (21-32); CHLORIDE 100 mmol/L (101-111); CHOL/HDL RATIO 2.4 (<4.4); CHOLESTEROL 186 mg/dL; CREATININE 0.7 mg/dL (0.6-1.3); GFR - MDRD 80 (>89); GLUCOSE 85 mg/dL (74-104); HDL CHOLESTEROL 77 mg/dL; LDL CHOLESTEROL,CALCULATED 88 mg/dL; LDL/HDL RATIO 1.1 (<4.4); POTASSIUM 4.4 mmol/L (3.5-4.5); SODIUM 137 mmol/L (135-145); TOTAL PROTEIN 6.5 g/dL (6.4-8.9); TRIGLYCERIDES 107 mg/dL (48-352); VLDL CHOLESTEROL 21 mg/dL
[2023-05-07 19:13] LABS: THYROID STIMULATING HORMONE 3.12 uIU/mL (0.34-5.60)
[2023-05-07 21:36] LABS: ESTIMATED AVERAGE GLUCOSE 111 mg/dL (70-100); HEMOGLOBIN A1c% 5.5 % (4.27-6.07)
== END 2023-05-07 15:44 | disposition home or self-care (01) ==
LOC: LAB.N 15:43
PROVIDERS: ATTEND Family Medicine
DX: K22.4 Dyskinesia of esophagus (principal); M17.0 Bilateral primary osteoarthritis of knee; Z79.891 Long term (current) use of opiate analgesic; M50.30 Other cervical disc degeneration, unspecified cervical region; K21.9 Gastro-esophageal reflux disease without esophagitis; G25.81 Restless legs syndrome; R73.9 Hyperglycemia, unspecified; E83.10 Disorder of iron metabolism, unspecified; Z79.899 Other long term (current) drug therapy
CPT/HCPCS: 36415; 80053; 80061; 82728; 83036; 83721; 84443; 85025

== ENCOUNTER 2023-09-13 13:28 | Outpatient (CLI) | payer MEDICARE, OTHER ==
[2023-09-13 13:58] LABS: ESTIMATED AVERAGE GLUCOSE 111 mg/dL (70-100); HEMOGLOBIN A1c% 5.5 % (4.27-6.07)
[2023-09-13 13:59] LABS: BASOPHILS # (AUTO) 0.1 10^3/uL (0.0-0.1); BASOPHILS % (AUTO) 1.4 %; EOSINOPHILS # (AUTO) 0.3 10^3/uL (0.0-0.7); EOSINOPHILS % (AUTO) 4.6 %; HCT - HEMATOCRIT 36.4 % (37.0-47.0); HGB - HEMOGLOBIN 11.7 g/dL (12.0-16.0); LYMPHOCYTES # (AUTO) 2.2 10^3/uL (1.5-3.5); LYMPHOCYTES % (AUTO) 31.2 %; MEAN CORPUSCULAR HEMOGLOBIN 29.8 pg (27.0-31.0); MEAN CORPUSCULAR HGB CONC 32.1 g/dL (32.0-36.0); MEAN CORPUSCULAR VOLUME 92.6 fL (81.0-99.0); MEAN PLATELET VOLUME 9.1 fL (7.9-10.8); MONOCYTES # (AUTO) 0.8 10^3/uL (0.0-1.0); NEUTROPHILS # (AUTO) 3.7 10^3/uL (1.5-6.6); NEUTROPHILS % (AUTO) 51.5 %; PLT - PLATELET COUNT 324 10^3/uL (130-450); RED BLOOD COUNT 3.93 10^6/uL (4.20-5.40); RED CELL DISTRIBUTION WIDTH 13.4 % (12.0-15.0); WHITE BLOOD COUNT 7.1 x10^3/uL (4.8-10.8)
[2023-09-13 14:03] LABS: ALBUMIN 4.4 g/dL (3.2-5.5); ALBUMIN/GLOBULIN RATIO 1.6 (1.0-2.2); BILIRUBIN,TOTAL 0.4 mg/dL (0.2-1.0); CALCIUM 9.7 mg/dL (8.5-10.3); CREATININE 0.6 mg/dL (0.6-1.3); TOTAL PROTEIN 7.2 g/dL (6.4-8.9)
[2023-09-13 14:23] LABS: THYROID STIMULATING HORMONE 2.03 uIU/mL (0.34-5.60)
[2023-09-13 14:28] LABS: FERRITIN 45.6 ng/mL (11.0-306.8)
== END 2023-09-13 13:29 | disposition home or self-care (01) ==
LOC: LAB 13:28
PROVIDERS: ATTEND Family Medicine
DX: E83.10 Disorder of iron metabolism, unspecified (principal); R73.9 Hyperglycemia, unspecified; M17.0 Bilateral primary osteoarthritis of knee; M81.0 Age-related osteoporosis without current pathological fracture; K58.9 Irritable bowel syndrome, unspecified; K21.9 Gastro-esophageal reflux disease without esophagitis; G25.81 Restless legs syndrome; Z79.899 Other long term (current) drug therapy
CPT/HCPCS: 36415; 80053; 82728; 83036; 83540; 84443; 84466; 85025

== ENCOUNTER 2024-01-08 16:35 | Emergency (ER) | payer MEDICARE, OTHER ==
[2024-01-08 17:23] LABS: BASOPHILS # (AUTO) 0.1 10^3/uL (0.0-0.1); BASOPHILS % (AUTO) 0.8 %; EOSINOPHILS # (AUTO) 0.1 10^3/uL (0.0-0.7); EOSINOPHILS % (AUTO) 1.7 %; HCT - HEMATOCRIT 37.1 % (37.0-47.0); HGB - HEMOGLOBIN 11.4 g/dL (12.0-16.0); LYMPHOCYTES # (AUTO) 2.3 10^3/uL (1.5-3.5); LYMPHOCYTES % (AUTO) 29.8 %; MEAN CORPUSCULAR HEMOGLOBIN 28.2 pg (27.0-31.0); MEAN CORPUSCULAR HGB CONC 30.7 g/dL (32.0-36.0); MEAN CORPUSCULAR VOLUME 91.8 fL (81.0-99.0); MEAN PLATELET VOLUME 9.1 fL (7.9-10.8); MONOCYTES # (AUTO) 0.8 10^3/uL (0.0-1.0); MONOCYTES % (AUTO) 11.1 %; NEUTROPHILS # (AUTO) 4.3 10^3/uL (1.5-6.6); NEUTROPHILS % (AUTO) 56.3 %; PLT - PLATELET COUNT 317 10^3/uL (130-450); RED BLOOD COUNT 4.04 10^6/uL (4.20-5.40); RED CELL DISTRIBUTION WIDTH 13.9 % (12.0-15.0); WHITE BLOOD COUNT 7.6 x10^3/uL (4.8-10.8)
[2024-01-08] MEDS: MORPHINE 2 MG/ML CARPUJECT IVP STA (17:23)
--- NOTE | 2024-01-08 18:08 | CT Report ---
PROCEDURE: Head WO INDICATIONS: diffuse headache after falls TECHNIQUE: Noncontrast 4.5 mm thick angled axial sections acquired from the foramen magnum to the vertex. For r adiation dose reduction, the following was used: automated exposure control, adjustment of mA and/or kV according to patient size. COMPARISON: None. FINDINGS: Image quality: Excellent. CSF spaces: Basal cisterns are patent. No extra-axial fluid collections. Ventricles are normal in size and shape. Brain: Mild diffuse parenchymal volume loss with symmetric expansion of CSF taking spaces. Periventr icular white matter hypodensities. No midline shift. No intracranial masses or hemorrhage. Boyer-whi te matter interface is normal. Skull and face: Calvarium and visualized facial bones are intact, without suspicious lesions. [place] of lens replacement Sinuses: Visualized sinuses and mastoids are clear. IMPRESSION: No acute intracranial pathology. Sequelae of chronic microvascular ischemic disease. Reviewed by: Tong Sloan MD on 01/08/2024 5:06 PM JOSE ALBERTO Approved by: Tong Sloan MD on 01/08/2024 5:06 PM AKYVONNE Station ID: [id number]
[2024-01-08 18:15] LABS: CREATININE 0.5 mg/dL (0.6-1.3); POTASSIUM 4.2 mmol/L (3.5-4.5)
[2024-01-08] MEDS: DROPERIDOL 5 MG/2 ML VIAL IVP STA (18:45)
[2024-01-08] MEDS: KETOROLAC 30 MG/ML VIAL IVP STA (18:45)
[2024-01-08] MEDS: GABAPENTIN 100 MG CAPSULE PO STA (19:09)
[2024-01-08 19:22] VITALS: O2SAT 95
[2024-01-08] MEDS: diphenhydrAMINE INJ 50 MG/ML VIAL IVP STA (19:39)
[2024-01-08] MEDS: BENZTROPINE 2 MG/2 ML VIAL IVP STA ×2 (19:45→21:03)
--- NOTE | 2024-01-08 20:17 | ED Physician Documentation ---
History of Present Illness - Stated complaint Stated Complaint: HEAD/NECK PX - Chief complaint Chief Complaint: Neuro - History obtained from History obtained from: Patient - History of Present Illness Timing: Today Pain level max: 9 Pain level now: 9 - Additonal information Additional information: Patient is an 83-year-old female who presents to the emergency department complaining of a headache for the past week. She states the pain is usually in the back of her head, neck and behind her eyes. Took Tylenol and aspirin without relief. Patient states that she has had several falls recently but does not recall if she struck her head or not. She states she has a history of severe scoliosis in her spine. No focal numbness or tingling. No focal weakness. No rhinorrhea, cough, congestion. No fevers. No chills. Review of Systems Constitutional: denies: Fever, Chills Cardiac: denies: Chest pain / pressure, Palpitations Respiratory: denies: Dyspnea, Cough Skin: denies: Rash Musculoskeletal: reports: Neck pain, Back pain (chronic) Neurologic: denies: Focal weakness, Numbness, Head injury, LOC PD PAST MEDICAL HISTORY - Past Medical History Past Medical History: Yes Cardiovascular: None Respiratory: None Endocrine/Autoimmune: None GI: GERD : None HEENT: None Psych: None Musculoskeletal: Osteoarthritis, Scoliosis, Chronic back pain Derm: None - Past Surgical History Past Surgical History: Yes General: Colonoscopy Ortho: Rotator cuff repair, 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 HEENT: Cataracts, Tonsil/Adenoidectomy - Present Medications Home Medications: Ambulatory Orders Medication Instructions Recorded Confirmed Pramipexole [Mirapex] 0.25 mg PO DAILY 05/24/13 01/08/24 Multivitamin [Multi-Vitamin Daily] 1 each PO DAILY 05/25/13 01/08/24 Calcium Carb, Citrate/Vit D3 1 ea PO DAILY 03/29/14 01/08/24 [Citracal + D ER Tablet] Cholecalciferol (Vitamin D3) 1,000 unit PO DAILY 03/29/14 01/08/24 [Vitamin D] Meclizine [Antivert] 25 mg PO Q6H PRN #30 tablet 08/02/19 01/08/24 Gabapentin [Neurontin] 300 mg PO QID 01/08/24 01/08/24 oxyCODONE [Roxicodone] 5 mg PO Q4HR PRN 01/08/24 01/08/24 - Allergies Allergies/Adverse Reactions: Allergies Allergy/AdvReac Type Severity Reaction Status Date / Time Penicillins Allergy Mild Rash Verified 01/08/24 16:55 Tetracyclines Allergy Mild Rash Verified 01/08/24 16:55 ropinirole [From Requip] Allergy Unknown Verified 01/08/24 16:55 - Social History Does the pt smoke?: No Smoking Status: Never smoker Does the pt drink ETOH?: Yes Does the pt have substance abuse?: No - Immunizations Immunizations are current?: Yes - POLST Patient has POLST: No PD ED PE NORMAL - Vitals Vital signs reviewed: Yes - General General: Alert and oriented X 3, No acute distress - HEENT HEENT: Atraumatic, PERRL, EOMI, Moist mucous membranes, Pharynx benign - Neck Neck: Supple, no meningeal sign, No bony TTP - Cardiac Cardiac: RRR, Strong equal pulses - Respiratory Respiratory: No respiratory distress, Clear bilaterally - Abdomen Abdomen: Soft, Non tender, Non distended - Derm Derm: Warm and dry - Extremities Extremities: No edema, No calf tenderness / cord - Neuro Neuro: Alert and oriented X 3, assistant controller 2-12 intact, No motor deficit, No sensory deficit, Normal speech Eye Opening: Spontaneous Motor: Obeys Commands Verbal: Oriented GCS Score: 15 - Psych Psych: Normal mood, Normal affect Results - Vitals Vitals: Vital Signs - 24 hr 01/08/24 01/08/24 01/08/24 16:50 17:25 19:13 Temperature 36.2 C L Heart Rate 71 78 116 H Respiratory 16 16 18 Rate Blood Pressure 143/75 H 150/80 H 147/111 H O2 Saturation 100 100 95 01/08/24 22:00 Temperature Heart Rate 68 Respiratory 15 Rate Blood Pressure 132/80 H O2 Saturation 95 Oxygen O2 Source Room air - Labs Labs: Laboratory Tests 01/08/24 01/08/24 17:20 17:20 WBC 7.6 RBC 4.04 L Hgb 11.4 L Hct 37.1 MCV 91.8 MCH 28.2 MCHC 30.7 L RDW 13.9 Plt Count 317 MPV 9.1 Neut # (Auto) 4.3 Lymph # (Auto) 2.3 Andrews # (Auto) 0.8 Eos # (Auto) 0.1 Baso # (Auto) 0.1 Absolute Nucleated RBC 0.00 Nucleated RBC % 0.0 Sodium 135 Potassium 4.2 Chloride 100 L Carbon Dioxide 27 Anion Gap 8.0 BUN 16 Creatinine 0.5 L Estimated GFR (MDRD) 118 Glucose 95 Calcium 10.0 - Rads (name of study) head CT Relevant Findings:: Final report received, See rad report PD Medical Decision Making - ED course Complexity details: reviewed results, re-evaluated patient, considered differential, d/w patient ED course: No acute findings on head CT. She was given a dose of morphine and this did help her neck pain but still complaining of a headache. She takes oxycodone 5 to 10 mg 4 times a day at home for chronic neck and back pain. She received a dose of Toradol and droperidol. Her headache did resolve but she did experience an increase in her restless leg syndrome. Given Cogentin, Benadryl and morphine. Patient states that the restless leg sensation is calming down and she is feeling better. She would like to go home at this time. No evidence of subarachnoid hemorrhage, tumor, mass. No evidence of meningitis. No indication for lumbar puncture. Patient is well-appearing, nontoxic. Afebrile. GCS 15. We will have her follow-up with her doctor for further care and continue her current medications at home. Suspect that her headache was secondary to muscle spasm in her neck. Patient counseled regarding signs and symptoms for which I believe and urgent re-evaluation would be necessary. Patient with good understanding of and agreement to plan and is comfortable going home at this time This document was made in part using voice recognition software. While efforts are made to proofread this document, sound alike and grammatical errors may occur. Departure - Departure Disposition: Home, Self Care Clinical Impression: Neck muscle spasm Headache Qualifiers: Headache type: unspecified Headache chronicity pattern: acute headache Intractability: not intractable Qualified Code(s): R51.9 - Headache, unspecified Condition: Good Instructions: ED Cephalgia Unspecified Follow-Up: Chris Sanderson MD [Primary Care Provider] - Within 1 week Comments: Your laboratory testing and head CT do not show any acute abnormalities. You do have a mild anemia. This can be followed up by your doctor. Please follow-up with your doctor for further care and return if you worsen. Forms: PCP List Discharge Date/Time: 01/08/24 22:25
[2024-01-08] MEDS: oxyCODONE 5 MG TABLET PO STA (21:03)
[2024-01-08] MEDS: MORPHINE 10 MG/ML VIAL IVP STA (21:53)
[2024-01-08 22:17] VITALS: BP 132/80
== END 2024-01-08 22:25 | disposition home or self-care (01) ==
LOC: ED 16:35
DX: M62.838 Other muscle spasm (principal); G89.29 Other chronic pain; G25.81 Restless legs syndrome; D64.9 Anemia, unspecified; Z91.81 History of falling
CPT/HCPCS: 36415; 70450; 80048; 85025; 96374; 96375; 96376; 99283; 99285; A9270; J0515; J1200

== ENCOUNTER 2024-01-25 13:48 | Emergency (ER) | payer MEDICARE, OTHER ==
--- NOTE | 2024-01-25 16:13 | ED Physician Documentation ---
PD HPI Fall - Stated complaint Stated Complaint: BACK PX,STIFF - Chief complaint Chief Complaint: Back Pain - History obtained from History obtained from: Patient - History of Present Illness Mechanism of injury: Lost balance (she states she was walking and felt like knee gave out, causing backward fall onto sacrum and low back.) Fall distance: Standing position (felt like knee has been giving out with increased swelling and then feeling of it giving out.) Where injury occurred: Home PD PAST MEDICAL HISTORY - Past Medical History Cardiovascular: None Respiratory: None Endocrine/Autoimmune: None GI: GERD : None HEENT: None Psych: None Musculoskeletal: Osteoarthritis (prior knee replacements, with right knee ongoing edema and lately has had giving out of it with walking. 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: Hysterectomy HEENT: Cataracts, Tonsil/Adenoidectomy - Present Medications Home Medications: Ambulatory Orders Medication Instructions Recorded Confirmed Pramipexole [Mirapex] 0.25 mg PO DAILY 05/24/13 01/08/24 Multivitamin [Multi-Vitamin Daily] 1 each PO DAILY 05/25/13 01/08/24 Calcium Carb, Citrate/Vit D3 1 ea PO DAILY 03/29/14 01/08/24 [Citracal + D ER Tablet] Cholecalciferol (Vitamin D3) 1,000 unit PO DAILY 03/29/14 01/08/24 [Vitamin D] Meclizine [Antivert] 25 mg PO Q6H PRN #30 tablet 08/02/19 01/08/24 Gabapentin [Neurontin] 300 mg PO QID 01/08/24 01/08/24 oxyCODONE [Roxicodone] 5 mg PO Q4HR PRN 01/08/24 01/08/24 HYDROcod/ACETAM 5/325 [[place]utland 5/325] 1 ea PO TID PRN #20 tablet 01/25/24 Lidocaine Patch 5% [Lidoderm Patch] 1 patch TOP DAILY PRN #10 patch 01/25/24 methocarbamoL [Robaxin] 500 mg PO Q6H PRN #30 tablet 01/25/24 - Allergies Allergies/Adverse Reactions: Allergies Allergy/AdvReac Type Severity Reaction Status Date / Time Penicillins Allergy Mild Rash Verified 01/08/24 16:55 Tetracyclines Allergy Mild Rash Verified 01/08/24 16:55 ropinirole [From Requip] Allergy Unknown Verified 01/08/24 16:55 - Social History Does the pt smoke?: No Smoking Status: Never smoker Does the pt drink ETOH?: Yes Does the pt have substance abuse?: No - Immunizations Immunizations are current?: Yes - POLST Patient has POLST: No PD ED PE NORMAL - Vitals Vital signs reviewed: Yes - General General: Alert and oriented X 3, Well developed/nourished, Other (appears in pain lower back, sacrum area with movement. Some upper back kkkkkkkkkkkkkkkkkkkappears in pain due to pelvis and loumbar back. Pian with ROM of right knee. ) - HEENT HEENT: Atraumatic - Neck Neck: Supple, no meningeal sign, No bony TTP, No adenopathy - Cardiac Cardiac: RRR, No murmur - Respiratory Respiratory: No respiratory distress, Clear bilaterally - Abdomen Abdomen: Soft, Non tender - Derm Derm: Normal color, Warm and dry - Extremities Extremities: Other (right lower legs with pitting edema 1+ on left and 2 + on right with knee effusion and tenderness No redness. Limited ROM due to pain of knee swelling. ) - Neuro Neuro: Alert and oriented X 3, No motor deficit, No sensory deficit, Normal speech Results - Vitals Vitals: Oxygen O2 Source Room air - Labs Labs: Laboratory Tests 01/25/24 01/25/24 17:40 17:40 WBC 7.6 RBC 3.84 L Hgb 11.2 L Hct 34.9 L MCV 90.9 MCH 29.2 MCHC 32.1 RDW 13.9 Plt Count 276 MPV 9.3 Neut # (Auto) 5.1 Lymph # (Auto) 1.7 [place] # (Auto) 0.7 Eos # (Auto) 0.1 Baso # (Auto) 0.1 Absolute Nucleated RBC 0.00 Nucleated RBC % 0.0 Sodium 137 Potassium 3.9 Chloride 101 Carbon Dioxide 29 Anion Gap 7.0 BUN 17 Creatinine 0.7 Estimated GFR (MDRD) 80 L Glucose 101 Calcium 9.8 Magnesium 1.9 Total Bilirubin 0.6 AST 25 ALT 14 Alkaline Phosphatase 61 Total Protein 6.8 Albumin 4.2 Globulin 2.6 Albumin/Globulin Ratio 1.6 Lipase < 10 L - Rads (name of study) head CT Relevant Findings:: Prelim report reviewed (no ICH nor acute process), See rad report T/L spine and pelvis Relevant Findings:: EMP independent interpretation of test, See rad report (no acute fractures. Prior lumbar harware for scoliosis is no acute findings. No fractures. ) PD Medical Decision Making - ED course Complexity details: reviewed results (no fractures nor hardware complication/deformity. Still fall with pain to pelvis/low back adn toward thoracic spine), re-evaluated patient (pain lessened with IV meds here. ), considered differential, d/w patient, d/w family () ED course: the patient describes legs giving out, particularly right knee, and she falls. Had fallen backward and onto her gluteal couple of times, with knee/lower leg hurting mre. and Also with lumbar spine injury/exac of pain feeling. Even hurting up to upper back. Did not strike head per se. She is on chronic pain meds through PMD according to pt of oxycodone 5 mg QID. this is her baseline ongoing pain management prior to acute new injury. So will need increased meds above baseline. Discussion with patient is adding hydrocodone to her pain acutely with new injury. In additon short course of NSAIDs and muscle relaxants. It does sound like falls were initiated with knee giving out. There is swelling in joint adn olegario distally. No calf pain per se nor tender in medial thigh. Doubt DVT clinically and that would not give effussion of joint. Gave her knee brace (hinged as I think straight would add to imbalance of walking) and madhav wrap lower leg. She states has not been able to take Lasix. Departure - Departure Disposition: 01 Home, Self Care Clinical Impression: Fall from slip, trip, or stumble, Knee gives way, Leg edema, Back contusion, Strain of muscle of pelvis Condition: Stable Instructions: ED Contusion Back Prescriptions: Lidocaine Patch 5% [Lidoderm Patch] 1 patch TOP DAILY PRN #10 patch PRN Reason: pain HYDROcod/ACETAM 5/325 [[place] 5/325] 1 ea PO TID PRN #20 tablet PRN Reason: Pain methocarbamoL [Robaxin] 500 mg PO Q6H PRN #30 tablet PRN Reason: Spasms Comments: CTs of your pelvis and spine and head do not show any acute fractures, dislocations, bleeding or injuries. Obviously we do not see and there would be bruising strain arthritis flareup muscle spasms etc. It does sound like you are having muscle spasms through the pelvis and lower back. Continue your usual medications. Add hydrocodone 3-4 times daily if needed for extra pain above your baseline. This would be a supplement to your baseline pain medication. Add Robaxin muscle relaxant 3-4 times daily to help with spasms. You can try lidocaine patches to some of the areas as well. Use your Celebrex daily with food for the next 4 to 5 days if you can. For the leg swelling and knee giving out, try Madhav wrap to the lower part to help with the edema. This would be easier than trying to get a compression sock on. Use the hinged knee brace when up and around to see if that support your knee from giving out so you are less likely to fall. Follow-up with your primary care. I sent your prescriptions to the [facility] at your direction. I am prescribing a short course of narcotic pain medication for you. These are potentially dangerous and addictive medications that should be used carefully. These medications may constipate you. Take an lrsa-bbg-wzsqsvt stool softener such as docusate twice daily with plenty of water while taking these medications. If you go 24 hours without a bowel movement, take [id number] MiraLAX, per package instructions. Do not drink or drive while taking these medications. If you received narcotic or sedating medications while in the emergency department do not drive for 24 hours. Store this medication in a safe, secure place and out of reach of children. It is a violation of federal law to give or sell this medication to another person or to use in a manner other than prescribed. The ED will not refill narcotic prescriptions, including prescriptions lost or stolen. You can dispose of unwanted medications at the [facility]'s office or at several pharmacies such as [facility]. Discharge Date/Time: 01/25/24 20:03
[2024-01-25 17:24] VITALS: O2SAT 97
[2024-01-25 17:45] LABS: BASOPHILS # (AUTO) 0.1 10^3/uL (0.0-0.1); BASOPHILS % (AUTO) 0.7 %; EOSINOPHILS # (AUTO) 0.1 10^3/uL (0.0-0.7); EOSINOPHILS % (AUTO) 0.9 %; HCT - HEMATOCRIT 34.9 % (37.0-47.0); HGB - HEMOGLOBIN 11.2 g/dL (12.0-16.0); LYMPHOCYTES # (AUTO) 1.7 10^3/uL (1.5-3.5); LYMPHOCYTES % (AUTO) 22.8 %; MEAN CORPUSCULAR HEMOGLOBIN 29.2 pg (27.0-31.0); MEAN CORPUSCULAR HGB CONC 32.1 g/dL (32.0-36.0); MEAN CORPUSCULAR VOLUME 90.9 fL (81.0-99.0); MEAN PLATELET VOLUME 9.3 fL (7.9-10.8); MONOCYTES # (AUTO) 0.7 10^3/uL (0.0-1.0); MONOCYTES % (AUTO) 8.8 %; NEUTROPHILS # (AUTO) 5.1 10^3/uL (1.5-6.6); NEUTROPHILS % (AUTO) 66.4 %; PLT - PLATELET COUNT 276 10^3/uL (130-450); RED BLOOD COUNT 3.84 10^6/uL (4.20-5.40); RED CELL DISTRIBUTION WIDTH 13.9 % (12.0-15.0); WHITE BLOOD COUNT 7.6 x10^3/uL (4.8-10.8)
[2024-01-25] MEDS: KETOROLAC 15 MG/ML VIAL IVP STA ×2 (17:51→17:52)
[2024-01-25] MEDS: HYDROmorphone 0.5 MG/0.5 ML SYRINGE IVP STA ×2 (17:51→17:52)
[2024-01-25 17:58] LABS: ALBUMIN 4.2 g/dL (3.2-5.5); ALBUMIN/GLOBULIN RATIO 1.6 (1.0-2.2); ALKALINE PHOSPHATASE 61 IU/L (42-121); ALT ALANINE AMINOTRANSFERASE 14 IU/L (10-60); AST ASPARTATE AMINOTRANSFERASE 25 IU/L (10-42); BILIRUBIN,TOTAL 0.6 mg/dL (0.2-1.0); BUN - BLOOD UREA NITROGEN 17 mg/dL (6-20); CALCIUM 9.8 mg/dL (8.5-10.3); CARBON DIOXIDE - CO2 29 mmol/L (21-32); CHLORIDE 101 mmol/L (101-111); CREATININE 0.7 mg/dL (0.6-1.3); GFR - MDRD 80 (>89); GLUCOSE 101 mg/dL (74-104); MAGNESIUM 1.9 mg/dL (1.7-2.3); POTASSIUM 3.9 mmol/L (3.5-4.5); SODIUM 137 mmol/L (135-145); TOTAL PROTEIN 6.8 g/dL (6.4-8.9)
[2024-01-25 18:07] LABS: LIPASE < 10 U/L (11-82)
--- NOTE | 2024-01-25 18:24 | CT Report ---
PROCEDURE: Head WO INDICATIONS: fall backward few times, pain head/back/pelvis TECHNIQUE: Noncontrast 4.5 mm thick angled axial sections acquired from the foramen magnum to the vertex. For r adiation dose reduction, the following was used: automated exposure control, adjustment of mA and/or kV according to patient size. COMPARISON: 01/08/2024. Correlation is made with the accompanying imaging. FINDINGS: Image quality: There is streak artifact seen through the skull base. CSF spaces: Basal cisterns are patent. No extra-axial fluid collections. Ventricles are normal in size and shape. Brain: No midline shift. No intracranial masses or hemorrhage. Boyer-white matter interface is norm al. Skull and face: Calvarium and visualized facial bones are intact, without suspicious lesions. Sinuses: Visualized sinuses and mastoids are clear. IMPRESSION: No intracranial hemorrhage is seen. No significant intracranial abnormality is seen. Similar to prior. Reviewed by: Kelvin Villar MD on 01/25/2024 5:23 PM AKDT Approved by: Kelvin Villar MD on 01/25/2024 5:23 PM AKDT Station ID: [id number]
--- NOTE | 2024-01-25 18:33 | CT Report ---
PROCEDURE: Thoracic Spine WO INDICATIONS: fall backwrad TECHNIQUE: Noncontrast 3 mm thick sections acquired through the region of interest in the thoracic spine. Sagit stacey and coronal reformats were then constructed. For radiation dose reduction, the following was used : automated exposure control, adjustment of mA and/or kV according to patient size. COMPARISON: Correlation is made with prior MRI, 10/23/2019. Correlation is also made with the [facility] imaging. FINDINGS: Image quality: There is artifact associated with the metallic hardware. Bones: There is normal overall bony alignment. No acute vertebral body compression fractures. Ther e is a mild remote T9 anterior wedge deformity seen, with 20% loss of height anteriorly. A remote T11 anterior wedge deformity is seen, with 40% loss of height anteriorly. No suspicious sclerotic or lyt ic bony lesions. Central spinal canal is of normal overall caliber. Extensive thoracolumbar fixation hardware can be seen. No findings of hardware failure or hardware lo osening can be seen. Multiple sites of underlying degenerative change can be seen, particularly involving the visualized l ower cervical spine. Soft tissues: No paravertebral masses or hematomas. Visualized posteromedial lungs appear clear. IMPRESSION: No acute thoracic spine abnormality can be seen. Remote T9 and T11 anterior wedge deformities. No acute abnormality can be seen of the thoracolumbar hardware. Reviewed by: Kelvin Villar MD on 01/25/2024 5:31 PM AKDT Approved by: Kelvin Villar MD on 01/25/2024 5:31 PM AKDT Station ID: [id number]
--- NOTE | 2024-01-25 18:35 | CT Report ---
PROCEDURE: Lumbar Spine WO INDICATIONS: fall backward: low back/pelvic pain TECHNIQUE: Noncontrast 3 mm thick sections acquired from the T12 level to the sacrum. Sagittal and coronal refo rmats were constructed. For radiation dose reduction, the following was used: automated exposure co ntrol, adjustment of mA and/or kV according to patient size. COMPARISON: Correlation is made with the accompanying imaging. FINDINGS: Image quality: There is artifact associated with the metallic hardware. Bones: No acute vertebral body compression fractures. There is a remote T11 anterior wedge deformity seen. Grade 1 L5-S1 anterolisthesis is seen. Moderate dextroconvex lumbar scoliosis is seen. No suspicious lytic or blastic bony lesions. Central spinal caliber is of normal overall caliber. N o pars defects. Extensive fixation hardware is seen, which extends into the sacrum. No definite findings of hardware failure or hardware loosening can be seen. There has been removal of portions of the posterior elemen ts. Bone grafting material is seen. Extensive underlying degenerative changes are seen. Soft tissues: No retroperitoneal masses or hematomas. Visualized aorta is normal in caliber. Ather osclerotic calcification is seen. IMPRESSION: No vanesa acute abnormality can be seen. No acute fracture is seen. Extensive postoperative and degenerative changes are seen. There is a remote T11 anterior wedge deformity. Dextroconvex scoliosis can be seen. Reviewed by: Kelvin Villar MD on 01/25/2024 5:34 PM JOSE ALBERTO Approved by: Kelvin Villar MD on 01/25/2024 5:34 PM JOSE ALBERTO Station ID: [id number]
--- NOTE | 2024-01-25 18:59 | CT Report ---
PROCEDURE: Pelvis WO INDICATIONS: fall backward, pelvic/back pain TECHNIQUE: Noncontrast 3 mm axial sections acquired through the bony pelvis, with coronal and sagittal reformatt ing. For radiation dose reduction, the following was used: automated exposure control, adjustment of mA and/or kV according to patient size. COMPARISON: None. FINDINGS: Image quality: Diagnostic. Bones: Demineralized. No acute fracture or dislocation. Degenerative changes at the pubis symphysis and bilateral hip joints. Pelvic rings are intact.. Lumbosacral spinal fixation using transpedicle screws and paired vertical rods. Hardware is in approp riate position. No apparent evidence of hardware complication. No acute vertebral body compression fr acture identified. Soft tissues: Right inguinal hernia containing small loop of colon without evidence of obstruction. Stool seen throughout the colon. Atherosclerotic calcifications of the aorta. IMPRESSION: No acute osseous abnormality. Status post lumbar sacral posterior spinal fusion without evidence of h ardware complication. Left inguinal hernia containing colon without evidence of obstruction. Reviewed by: Elsa Rogel MD, PhD on 01/25/2024 6:58 PM PDT Approved by: Elsa Roegl MD, PhD on 01/25/2024 6:58 PM PDT Station ID: [id number]
[2024-01-25 20:07] VITALS: BP 126/69
== END 2024-01-25 20:03 | disposition home or self-care (01) ==
LOC: ED 13:48
DX: S39.013A Strain of muscle, fascia and tendon of pelvis, initial encounter (principal); S30.0XXA Contusion of lower back and pelvis, initial encounter; W18.30XA Fall on same level, unspecified, initial encounter; Y93.01 Activity, walking, marching and hiking; Y92.009 Unspecified place in unspecified non-institutional (private) residence as the place of occurrence of the external cause; R60.0 Localized edema; Z79.899 Other long term (current) drug therapy; R29.6 Repeated falls
CPT/HCPCS: 36415; 70450; 72128; 72131; 72192; 80053; 83690; 83735; 85025; 96374; 96375; 99284; J1170

== ENCOUNTER 2024-01-28 09:23 | Outpatient (CLI) | payer MEDICARE, OTHER | END 2024-01-28 23:59 | disposition critical access hospital (66) | LOC: EMS 09:23 | DX: R29.6 Repeated falls (principal); M25.551 Pain in right hip; M79.604 Pain in right leg; M79.89 Other specified soft tissue disorders | CPT/HCPCS: A0425; A0429 ==

== ENCOUNTER 2024-01-28 09:37 | Inpatient (IN) | payer MEDICARE, OTHER ==
--- NOTE | 2024-01-28 10:05 | ED Physician Documentation ---
History of Present Illness - Stated complaint Stated Complaint: R KNEE PX/SWELLING - Chief complaint Chief Complaint: Ext Problem - History obtained from History obtained from: Patient, Family - History of Present Illness Pain level max: 8 Pain level now: 8 - Additonal information Additional information: 83-year-old female presents to the emergency department complaint of right hip pain. She states that it has been hurting for the past week or so. She has had multiple falls. She states that her knee is not hurting despite the triage note stating the knee is her main pain. She states the main pain is in her right groin. Worse with standing and walking. Better with rest. She states that she has not picked up the pain medication that was prescribed for her 2 days ago. 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 HEENT: Cataracts, Tonsil/Adenoidectomy - Present Medications Home Medications: Ambulatory Orders Medication Instructions Recorded Confirmed Pramipexole [Mirapex] 0.25 mg PO DAILY 05/24/13 01/08/24 Multivitamin [Multi-Vitamin Daily] 1 each PO DAILY 05/25/13 01/08/24 Calcium Carb, Citrate/Vit D3 1 ea PO DAILY 03/29/14 01/08/24 [Citracal + D ER Tablet] Cholecalciferol (Vitamin D3) 1,000 unit PO DAILY 03/29/14 01/08/24 [Vitamin D] Meclizine [Antivert] 25 mg PO Q6H PRN #30 tablet 08/02/19 01/08/24 oxyCODONE [Roxicodone] 5 mg PO Q4HR PRN 01/08/24 01/28/24 Lidocaine Patch 5% [Lidoderm Patch] 1 patch TOP DAILY PRN #10 patch 01/25/24 methocarbamoL [Robaxin] 500 mg PO Q6H PRN #30 tablet 01/25/24 Alendronate [Fosamax] 70 mg PO Q7D 01/28/24 01/28/24 Celecoxib [CeleBREX] 100 mg PO DAILY 01/28/24 01/28/24 Cyclobenzaprine [Flexeril] 10 mg PO QPM PRN 01/28/24 01/28/24 Gabapentin [Neurontin] 300 mg PO QID 01/28/24 01/28/24 - Allergies Allergies/Adverse Reactions: Allergies Allergy/AdvReac Type Severity Reaction Status Date / Time Penicillins Allergy Mild Rash Verified 01/28/24 09:44 Tetracyclines Allergy Mild Rash Verified 01/28/24 09:44 ropinirole [From Requip] Allergy Unknown Verified 01/28/24 09:44 - Social History Does the pt smoke?: No Smoking Status: Never smoker Does the pt drink ETOH?: Yes Does the pt have substance abuse?: No - Immunizations Immunizations are current?: Yes - POLST Patient has POLST: No PD ED PE NORMAL - Vitals Vital signs reviewed: Yes - General General: Alert and oriented X 3, No acute distress - HEENT HEENT: Moist mucous membranes - Neck Neck: Supple, no meningeal sign - Cardiac Cardiac: RRR, Strong equal pulses - Respiratory Respiratory: No respiratory distress, Clear bilaterally - Abdomen Abdomen: Soft, Non tender, Non distended - Derm Derm: Warm and dry - Extremities Extremities: Other (Pain with internal and external rotation of the right hip. Limited flexion extension secondary to pain. Has tenderness on the lateral aspect of the hip near the greater trochanter as well. Otherwise normal examination of the bilateral lower extremities NVI) - Neuro Neuro: Alert and oriented X 3 - Psych Psych: Normal mood, Normal affect Results - Vitals Vitals: Vital Signs - 24 hr 01/28/24 01/28/24 09:42 11:15 Temperature 36.7 C Heart Rate 74 85 Respiratory 18 16 Rate Blood Pressure 150/110 H 141/93 H O2 Saturation 99 96 Oxygen O2 Source Room air - EKG (time done) 1038 EKG releavant findings:: EKG personally interpreted by author of this note. Relevant findings are: Rate: Rate (enter#) (89) Rhythm: NSR, Other (PVC) [place]: LAD QRS: Normal Ischemia: Q waves (III) - Labs Labs: Laboratory Tests 01/28/24 01/28/24 10:59 10:59 WBC 7.2 RBC 3.95 L Hgb 11.3 L Hct 36.8 L MCV 93.2 MCH 28.6 MCHC 30.7 L RDW 13.9 Plt Count 297 MPV 9.5 Neut # (Auto) 5.1 Lymph # (Auto) 1.1 L [place] # (Auto) 0.8 Eos # (Auto) 0.1 Baso # (Auto) 0.0 Absolute Nucleated RBC 0.00 Nucleated RBC % 0.0 Sodium 134 L Potassium 4.3 Chloride 99 L Carbon Dioxide 28 Anion Gap 7.0 BUN 13 Creatinine 0.6 Estimated GFR (MDRD) 96 Glucose 99 Calcium 9.9 Total Bilirubin 0.5 AST 15 ALT 13 Alkaline Phosphatase 66 Total Protein 6.8 Albumin 4.1 Globulin 2.7 Albumin/Globulin Ratio 1.5 Lipase < 10 L - Rads (name of study) Right hip CT Relevant Findings:: Final report received, See rad report PD Medical Decision Making - ED course Complexity details: reviewed results, re-evaluated patient, considered differential, d/w patient, d/w family, d/w loan consultant ED course: 83-year-old female with right hip pain after several falls. She has a displaced subcapital fracture of the right femoral neck. She does have a left inguinal hernia, this is easily reducible on exam, not incarcerated clinically. Discussed the case with Dr. Srinivasan, orthopedics who will plan to take the patient to the operating room. Also discussed with Dr. Perez, hospitalist. Pain well- controlled with IV Dilaudid. Normal saline given. Patient will be admitted for further care and repair of the fracture. This document was made in part using voice recognition software. While efforts are made to proofread this document, sound alike and grammatical errors may occur. Departure - Departure Disposition: [facility] DC/Xfer Clinical Impression: Left inguinal hernia Closed right hip fracture Qualifiers: Encounter type: initial encounter Qualified Code(s): S72.001A - Fracture of unspecified part of neck of right femur, initial encounter for closed fracture Condition: Stable Discharge Date/Time: 01/28/24 13:25
[2024-01-28] MEDS: HYDROmorphone 0.5 MG/0.5 ML SYRINGE IVP STA (10:48)
--- NOTE | 2024-01-28 10:59 | CT Report ---
PROCEDURE: Lower Extremity RT WO INDICATIONS: R hip pain s/p fall TECHNIQUE: Noncontrast 3-mm axial sections acquired from the distal tibial shaft to the talar dome, with coronal and sagittal reformats. For radiation dose reduction, the following was used: automated exposure c ontrol, adjustment of mA and/or kV according to patient size. COMPARISON: 01/25/2024. FINDINGS: Image quality: Excellent. Bones: There is a displaced subcapital fracture of the left femoral neck. There is no associated dis location. No other fractures or dislocations. Extensive pelvic fusion hardware including posterior la teral lumbar and lumbosacral fixation as well as screws across the SI joints.. Soft tissues: Large fecal load. Distended bladder. Bowel containing left inguinal hernia. Impression: 1. Displaced subcapital right femoral neck fracture. 2. Bowel containing left inguinal hernia, possibly incarcerated. 3. Large fecal load. Above discussed with Gerry Garcia MD at the time of dictation on 02/27/2024 at 1050 hours. Reviewed by: Leo Gong MD on 01/28/2024 10:58 AM PDT Approved by: Leo Gong MD on 01/28/2024 10:58 AM PDT Station ID: [id number]
--- NOTE | 2024-01-28 11:03 | XRAY Report ---
PROCEDURE: Chest 1V INDICATIONS: pre-op hip fracture TECHNIQUE: One view of the chest was acquired. COMPARISON: 08/08/2022. FINDINGS: Surgical changes and devices: Right shoulder arthroplasty, thoracolumbar fixation hardware. Lungs and pleura: No pleural effusions or pneumothorax. Very mild interstitial pulmonary edema. Mediastinum: Mediastinal contours appear normal. Mild cardiomegaly.. Bones and chest wall: No suspicious bony lesions. Overlying soft tissues appear unremarkable. IMPRESSION: Very mild congestive heart failure. Reviewed by: Leo Gong MD on 01/28/2024 11:02 AM PDT Approved by: Leo Gong MD on 01/28/2024 11:02 AM PDT Station ID: [id number]
[2024-01-28 11:07] LABS: BASOPHILS % (AUTO) 0.6 %; EOSINOPHILS # (AUTO) 0.1 10^3/uL (0.0-0.7); EOSINOPHILS % (AUTO) 1.5 %; HCT - HEMATOCRIT 36.8 % (37.0-47.0); HGB - HEMOGLOBIN 11.3 g/dL (12.0-16.0); LYMPHOCYTES # (AUTO) 1.1 10^3/uL (1.5-3.5); LYMPHOCYTES % (AUTO) 15.5 %; MEAN CORPUSCULAR HEMOGLOBIN 28.6 pg (27.0-31.0); MEAN CORPUSCULAR HGB CONC 30.7 g/dL (32.0-36.0); MEAN CORPUSCULAR VOLUME 93.2 fL (81.0-99.0); MEAN PLATELET VOLUME 9.5 fL (7.9-10.8); MONOCYTES # (AUTO) 0.8 10^3/uL (0.0-1.0); MONOCYTES % (AUTO) 10.6 %; NEUTROPHILS # (AUTO) 5.1 10^3/uL (1.5-6.6); NEUTROPHILS % (AUTO) 71.5 %; PLT - PLATELET COUNT 297 10^3/uL (130-450); RED BLOOD COUNT 3.95 10^6/uL (4.20-5.40); RED CELL DISTRIBUTION WIDTH 13.9 % (12.0-15.0); WHITE BLOOD COUNT 7.2 x10^3/uL (4.8-10.8)
[2024-01-28 11:24] LABS: ALBUMIN 4.1 g/dL (3.2-5.5); ALBUMIN/GLOBULIN RATIO 1.5 (1.0-2.2); ALKALINE PHOSPHATASE 66 IU/L (42-121); ALT ALANINE AMINOTRANSFERASE 13 IU/L (10-60); AST ASPARTATE AMINOTRANSFERASE 15 IU/L (10-42); BILIRUBIN,TOTAL 0.5 mg/dL (0.2-1.0); BUN - BLOOD UREA NITROGEN 13 mg/dL (6-20); CALCIUM 9.9 mg/dL (8.5-10.3); CARBON DIOXIDE - CO2 28 mmol/L (21-32); CHLORIDE 99 mmol/L (101-111); CREATININE 0.6 mg/dL (0.6-1.3); GFR - MDRD 96 (>89); GLUCOSE 99 mg/dL (74-104); POTASSIUM 4.3 mmol/L (3.5-4.5); SODIUM 134 mmol/L (135-145); TOTAL PROTEIN 6.8 g/dL (6.4-8.9)
[2024-01-28 11:27] LABS: LIPASE < 10 U/L (11-82)
[2024-01-28] MEDS ORDERED: SODIUM CHLORIDE FLUSH 0.9% 10 ML SYRINGE IVP PRN (11:48)
[2024-01-28] MEDS ORDERED: ONDANSETRON 4 MG/2 ML VIAL IVP PRN ×2 (11:48→14:55)
[2024-01-28] MEDS ORDERED: HYDROmorphone 0.5 MG/0.5 ML SYRINGE IVP PRN ×2 (11:48→14:55)
[2024-01-28] MEDS ORDERED: BUPIVACAINE 0.5% PF 10 ML VIAL ONE (12:40)
[2024-01-28] MEDS ORDERED: MIDAZOLAM 2 MG/2 ML VIAL ONE (12:52)
[2024-01-28] MEDS ORDERED: fentaNYL 100 MCG/2 ML VIAL ONE ×3 (12:53→15:19)
[2024-01-28] MEDS ORDERED: PROPOFOL 200 MG/20 ML VIAL IVP ONE ×2 (12:55→14:03)
[2024-01-28] MEDS ORDERED: DEXAMETHASONE 4 MG/ML VIAL ONE ×2 (12:56→14:03)
[2024-01-28] MEDS ORDERED: ONDANSETRON 4 MG/2 ML VIAL ONE ×2 (12:56→14:03)
[2024-01-28] MEDS ORDERED: ceFAZolin 1 GM VIAL ONE ×2 (13:28→14:03)
--- NOTE | 2024-01-28 13:39 | HISTORY & PHYSICAL EXAMINATION ---
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 HEENT: reports: Cataracts, Tonsil/Adenoidectomy - POLST Patient has POLST: No Meds/Allgy - Home Medications Home Medications: Ambulatory Orders Medication Instructions Recorded Confirmed Pramipexole [Mirapex] 0.25 mg PO DAILY 05/24/13 01/08/24 Multivitamin [Multi-Vitamin Daily] 1 each PO DAILY 05/25/13 01/08/24 Calcium Carb, Citrate/Vit D3 1 ea PO DAILY 03/29/14 01/08/24 [Citracal + D ER Tablet] Cholecalciferol (Vitamin D3) 1,000 unit PO DAILY 03/29/14 01/08/24 [Vitamin D] Meclizine [Antivert] 25 mg PO Q6H PRN #30 tablet 08/02/19 01/08/24 Gabapentin [Neurontin] 300 mg PO QID 01/08/24 01/08/24 oxyCODONE [Roxicodone] 5 mg PO Q4HR PRN 01/08/24 01/08/24 HYDROcod/ACETAM 5/325 [[place] 5/325] 1 ea PO TID PRN #20 tablet 01/25/24 Lidocaine Patch 5% [Lidoderm Patch] 1 patch TOP DAILY PRN #10 patch 01/25/24 methocarbamoL [Robaxin] 500 mg PO Q6H PRN #30 tablet 01/25/24 - Allergies Allergies/Adverse Reactions: Allergies Allergy/AdvReac Type Severity Reaction Status Date / Time Penicillins Allergy Mild Rash Verified 01/28/24 09:44 Tetracyclines Allergy Mild Rash Verified 01/28/24 09:44 ropinirole [From Requip] Allergy Unknown Verified 01/28/24 09:44 Exam - Vital Signs Vital Signs: Vital Signs x48h Temp Pulse Resp BP Pulse Ox 01/28/24 13:00 84 16 126/74 98 01/28/24 11:15 85 16 141/93 H 96 01/28/24 09:42 36.7 C 74 18 150/110 H 99 Conclusion/Plan - Lab Results Fish Bones: 01/28/24 10:59 01/28/24 10:59
[2024-01-28] MEDS ORDERED: PHENYLEPHRINE HCL 0.5 MG/5 ML AMPULE ONE ×2 (13:42→14:03)
--- NOTE | 2024-01-28 13:49 | PROVIDER PROGRESS NOTE ---
Subjective - Prog Note Date Prog Note Date: 01/28/24 Prog Note Time: 13:49 Objective - Vital Signs/Intake & Output Vital Signs: Vital Signs x48h Temp Pulse Resp BP Pulse Ox 01/28/24 13:00 84 16 126/74 98 01/28/24 11:15 85 16 141/93 H 96 01/28/24 09:42 36.7 C 74 18 150/110 H 99 - Lab Results Fish Bones: 01/28/24 10:59 01/28/24 10:59 Other Labs: Lab Results x24hrs 01/28/24 01/28/24 Range/Units 10:59 10:59 WBC 7.2 (4.8-10.8) x10^3/uL RBC 3.95 L (4.20-5.40) 10^6/uL Hgb 11.3 L (12.0-16.0) g/dL Hct 36.8 L (37.0-47.0) % MCV 93.2 (81.0-99.0) fL MCH 28.6 (27.0-31.0) pg MCHC 30.7 L (32.0-36.0) g/dL RDW 13.9 (12.0-15.0) % Plt Count 297 (130-450) 10^3/uL MPV 9.5 (7.9-10.8) fL Neut # (Auto) 5.1 (1.5-6.6) 10^3/uL Lymph # (Auto) 1.1 L (1.5-3.5) 10^3/uL [place] # (Auto) 0.8 (0.0-1.0) 10^3/uL Eos # (Auto) 0.1 (0.0-0.7) 10^3/uL Baso # (Auto) 0.0 (0.0-0.1) 10^3/uL Absolute Nucleated RBC 0.00 x10^3/uL Nucleated RBC % 0.0 /100WBC Sodium 134 L (135-145) mmol/L Potassium 4.3 (3.5-4.5) mmol/L Chloride 99 L (101-111) mmol/L Carbon Dioxide 28 (21-32) mmol/L Anion Gap 7.0 (6-13) BUN 13 (6-20) mg/dL Creatinine 0.6 (0.6-1.3) mg/dL Estimated GFR (MDRD) 96 (>89) Glucose 99 (74-104) mg/dL Calcium 9.9 (8.5-10.3) mg/dL Total Bilirubin 0.5 (0.2-1.0) mg/dL AST 15 (10-42) IU/L ALT 13 (10-60) IU/L Alkaline Phosphatase 66 (42-121) IU/L Total Protein 6.8 (6.4-8.9) g/dL Albumin 4.1 (3.2-5.5) g/dL Globulin 2.7 (2.1-4.2) g/dL Albumin/Globulin Ratio 1.5 (1.0-2.2) Lipase < 10 L (11-82) U/L
[2024-01-28] MEDS ORDERED: ePHEDrine 50 MG/ML VIAL IVP ONE ×2 (13:50→14:03)
[2024-01-28] MEDS ORDERED: VASOPRESSIN 20 UNIT/ML VIAL ONE (14:00)
[2024-01-28] MEDS ORDERED: ACETAMINOPHEN 1,000 MG/100 ML 1,000 MG/100 ML BAG IV ONE (14:23)
--- NOTE | 2024-01-28 14:33 | HISTORY & PHYSICAL EXAMINATION ---
Chief Complaint - Chief Complaint Chief Complaint: right lower extremity pain History of Present Illness - Admitted From Admitted From:: ED - History Obtained From Records Reviewed: most recent OP visit with Dr Sanderson. Ct report and images History obtained from: Patient - History of Present Illness HPI Comment/Other: Presented to the emergency department with right hip pain. Patient with a fall several days ago which caused the right hip pain. She was seen in the emergency department discharged home. She has been ambulating at home with a walker. Return to the emergency department again today because the pain was so severe. She states she has a history of difficulties with balance. And recently has been falling more often. She denies any syncope or presyncope related to these falls. She has not been having any palpitations. She states her balance is just bad and she trips and falls. She was prescribed pain medication at her p revious emergency department visit but did not pick it up. 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 - Substance History Use: Uses substance without health or social issues: NONE Abuse: Recurrent use of substance despite neg consequences: NONE - POLST Patient has POLST: No POLST Status: Full Code (brief discussion with patient in ED- wants to be full code.) Meds/Allgy - Home Medications Home Medications: Ambulatory Orders Medication Instructions Recorded Confirmed Pramipexole [Mirapex] 0.25 mg PO DAILY 05/24/13 01/08/24 Multivitamin [Multi-Vitamin Daily] 1 each PO DAILY 05/25/13 01/08/24 Calcium Carb, Citrate/Vit D3 1 ea PO DAILY 03/29/14 01/08/24 [Citracal + D ER Tablet] Cholecalciferol (Vitamin D3) 1,000 unit PO DAILY 03/29/14 01/08/24 [Vitamin D] Meclizine [Antivert] 25 mg PO Q6H PRN #30 tablet 08/02/19 01/08/24 oxyCODONE [Roxicodone] 5 mg PO Q4HR PRN 01/08/24 01/08/24 Lidocaine Patch 5% [Lidoderm Patch] 1 patch TOP DAILY PRN #10 patch 01/25/24 methocarbamoL [Robaxin] 500 mg PO Q6H PRN #30 tablet 01/25/24 Alendronate [Fosamax] 70 mg PO Q7D 01/28/24 01/28/24 Celecoxib [CeleBREX] 100 mg PO DAILY 01/28/24 01/28/24 Cyclobenzaprine [Flexeril] 10 mg PO QPM PRN 01/28/24 01/28/24 Gabapentin [Neurontin] 300 mg PO QID 01/28/24 01/28/24 - Allergies Allergies/Adverse Reactions: Allergies Allergy/AdvReac Type Severity Reaction Status Date / Time Penicillins Allergy Mild Rash Verified 01/28/24 09:44 Tetracyclines Allergy Mild Rash Verified 01/28/24 09:44 ropinirole [From Requip] Allergy Unknown Verified 01/28/24 09:44 Review of Systems - Constitutional Constitutional: denies: Fever, Weakness - Eyes Eyes: denies: Blurred vision - Ears, Nose & Throat Ears, Nose & Throat: denies: Hearing loss - Cardiovascular Cariovascular: denies: Irregular heart rate, Palpitations, Chest pain, Edema, Syncope, Exertional dyspnea, Decr. exercise tolerance - Respiratory Respiratory: denies: Cough - Gastrointestinal Gastrointestinal: denies: Abdominal pain, Constipation (denies contstipation, but notices BMs more irregular over the last week) - Genitourinary Genitourinary: denies: Dysuria - Musculoskeletal Musculoskeletal: reports: Joint pain (right groin pain) - Integumentary Integumentary: reports: Rash - Neurological Neurological: reports: Headache (chronic headaches), Incoordination - Endocrine Endocrine: denies: Polyuria, Polydypsia - Hematologic/Lymphatic Hematologic/Lymphatic: denies: Anemia - All Other Systems All Other Systems: reports: Reviewed and negative Prior Level of Functionality: previously independent at home with her , has been using a walker at home due to right groin pain Exam - Vital Signs Vital Signs: Vital Signs x48h Temp Pulse Resp BP Pulse Ox 01/28/24 13:00 84 16 126/74 98 01/28/24 11:15 85 16 141/93 H 96 01/28/24 09:42 36.7 C 74 18 150/110 H 99 - Physical Exam General Appearance: positive: No acute distress, Alert Eyes Bilateral: positive: Normal inspection ENT: positive: ENT inspection nml Neck: positive: Nml inspection, No JVD, Trachea midline Respiratory: positive: Chest non-tender, No respiratory distress, Breath sounds nml Cardiovascular: positive: Regular rate & rhythm Peripheral Pulses: positive: 2+ Abdomen: positive: Non-tender, No distention Skin: positive: Color nml Extremities: positive: Non-tender, Joint swelling, Other (positive TTP with any motion of the right hip). negative: Nml appearance (bilateral TKA incisions. right knee with some edema (chronic). no erythema.) Neurologic/Psychiatric: positive: Oriented x3, Motor nml, Sensation nml Conclusion/Plan - Problem List (1) Closed right hip fracture Conclusion/Plan: Patient has been seen by orthopedics here in the ED. The plan it to take her to the OR today for repair of her hip fracture. I have independently reviewed her CT images. Displaced right femoral neck fracture is evident. Additionally she seems to have a large stool burden. Will need to institute bowel protocol immediately postop.I will start chemical DVT prophylaxis on POD #1. She will work with PT on POD #1. Ortho MD has requested toe touch weightbearing postoperatively. 6 skin froy will be in for about 2 weeks prior to orthopedics follow-up. Patient will need halfway rehab postoperatively. We will plan ahead for that. Qualifiers: Encounter type: initial encounter Qualified Code(s): S72.001A - Fracture of unspecified part of neck of right femur, initial encounter for closed fracture (2) Osteoporosis Conclusion/Plan: Has been on weekly Fosamax for some time. She will continue this medication. (3) Fall from slip, trip, or stumble Conclusion/Plan: Patient was closely question regarding any instances of palpitations syncope presyncope related to her falls. She states she just has poor balance. She will remain on telemetry for 24 hours while here. She does not have any murmurs on chest auscultation. I think it is unlikely that she has valvular heart disease. She does not have any chest pain she does not have any difficulty taking a deep breath. I do not note any ecchymosis on her chest wall. She does not have any signs of trauma to her head.. (4) Anemia Conclusion/Plan: Noted on CBC. Will need to watch for acute postoperative blood loss anemia. Will repeat CBC in a.m. as well as obtaining iron studies. Consider iron supplementation although would like to prove iron deficiency anemia prior to starting this due to side effects of constipation. (5) Left inguinal hernia Conclusion/Plan: Not detectable on physical exam today. She states that it has always been reducible. (6) Restless legs syndrome Conclusion/Plan: She states that narcotics have made her restless legs worse in the past. Will institute her home mirtazapine postoperatively. - Lab Results Fish Bones: 01/28/24 10:59 01/28/24 10:59 - Diagnostic Imaging Results Diagnostic Imaging Results: positive: Final report reviewed, Read independently - EKG Results EKG Interpreted Independently: No Core Measures - Issues Hospital Issues and Management Plan: will need SNF for rehab post op. Patient is aware. social work aware (per ED). Patient going from ED to OR will start VTE prophylaxis post op - DVT/VTE - Prophylaxis VTE/DVT Device ordered at admit?: No VTE/DVT Prophylaxis med ordered at admit?: No
[2024-01-28] MEDS ORDERED: BUPIVACAINE 0.5%-EPI 1:200000 PF 30 ML VIAL ONE (14:35)
[2024-01-28] MEDS: BUPIVACAINE 0.5%-EPI 1:200000 PF 30 ML VIAL SUBQ ONE (14:36)
[2024-01-28] MEDS: LACTATED RINGERS 1,000 ML IV ONE (14:46)
--- NOTE | 2024-01-28 14:49 | CONSULTATION NOTE ---
Referring Provider Name of Referring Provider:: Dr. Maksim Taylor Consult Date: 01/28/24 History of Present Illness - Admitted From Admitted From:: patient - History of Present Illness HPI Comment/Other: Ms. Henry is a 83-year-old female who has had a fall about 4 days ago, and presented to the ER complaining of right hip pain. Her workup included a CT scan of her hip. No fracture was noticed at that time. She was discharged home. She continued to have some difficulty with pain with weightbearing on this right side although she was able to ambulate in her home with a walker and with the assistance of her . On the day of her admission however she could no longer bear any weight on the right side due to pain. She was subsequently taken back to the emergency room and a repeat CT scan of her hip obtained. This showed now a mildly displaced subcapital right hip fracture. After medical clearance she will be taken to the operating room for multiple cannulated screw fixation of her hip fracture. She only had water this morning and no solid food. 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 Cardiovascular: denies: CABG, Coronary stent, Valve replacement, Pacemaker HEENT: reports: Cataracts, Tonsil/Adenoidectomy - Family & Social History Family History: Mother: (trigeminal neuralgia) - POLST Patient has POLST: No Meds/Allgy - Home Medications Home Medications: Ambulatory Orders Medication Instructions Recorded Confirmed Pramipexole [Mirapex] 0.25 mg PO DAILY 05/24/13 01/08/24 Multivitamin [Multi-Vitamin Daily] 1 each PO DAILY 05/25/13 01/08/24 Calcium Carb, Citrate/Vit D3 1 ea PO DAILY 03/29/14 01/08/24 [Citracal + D ER Tablet] Cholecalciferol (Vitamin D3) 1,000 unit PO DAILY 03/29/14 01/08/24 [Vitamin D] Meclizine [Antivert] 25 mg PO Q6H PRN #30 tablet 08/02/19 01/08/24 oxyCODONE [Roxicodone] 5 mg PO Q4HR PRN 01/08/24 01/28/24 Lidocaine Patch 5% [Lidoderm Patch] 1 patch TOP DAILY PRN #10 patch 01/25/24 methocarbamoL [Robaxin] 500 mg PO Q6H PRN #30 tablet 01/25/24 Alendronate [Fosamax] 70 mg PO Q7D 01/28/24 01/28/24 Celecoxib [CeleBREX] 100 mg PO DAILY 01/28/24 01/28/24 Cyclobenzaprine [Flexeril] 10 mg PO QPM PRN 01/28/24 01/28/24 Gabapentin [Neurontin] 300 mg PO QID 01/28/24 01/28/24 - Allergies Allergies/Adverse Reactions: Allergies Allergy/AdvReac Type Severity Reaction Status Date / Time Penicillins Allergy Mild Rash Verified 01/28/24 09:44 Tetracyclines Allergy Mild Rash Verified 01/28/24 09:44 ropinirole [From Requip] Allergy Unknown Verified 01/28/24 09:44 Exam - Vital Signs Vital Signs: Vital Signs x48h Temp Pulse Resp BP Pulse Ox 01/28/24 13:00 84 16 126/74 98 01/28/24 11:15 85 16 141/93 H 96 01/28/24 09:42 36.7 C 74 18 150/110 H 99 - Physical Exam Comments/Other: Examination: The right leg was examined. She had tenderness over the right anterior groin. Pain with her right hip with leg rotation. Her leg was slightly shortened and externally rotated. Patient moves her toes on command. Sensation. Be intact. Good capillary filling of the toes noted. X-rays: The CT scan which was taken on her today does show now mildly displaced subcapital hip fracture right side. Posterior cortex appears to be minimally fragmented. Conclusion and Plan - Lab Results Laboratory Results 01/28/24 10:59: Sodium 134 L, Potassium 4.3, Chloride 99 L, Carbon Dioxide 28, Anion Gap 7.0, BUN 13, Creatinine 0.6, Estimated GFR (MDRD) 96, Glucose 99, Calcium 9.9, Total Bilirubin 0.5, AST 15, ALT 13, Alkaline Phosphatase 66, Total Protein 6.8, Albumin 4.1, Globulin 2.7, Albumin/Globulin Ratio 1.5, Lipase < 10 L 01/28/24 10:59: WBC 7.2, RBC 3.95 L, Hgb 11.3 L, Hct 36.8 L, MCV 93.2, MCH 28.6, MCHC 30.7 L, RDW 13.9, Plt Count 297, MPV 9.5, Neut # (Auto) 5.1, Lymph # (Auto) 1.1 L, [place] # (Auto) 0.8, Eos # (Auto) 0.1, Baso # (Auto) 0.0, Absolute Nucleated RBC 0.00, Nucleated RBC % 0.0 - Diagnosis Diagnosis: Right subcapital hip fracture - Plan Plan: Plan: After medical clearance we will proceed to take her to the operating room reduce her fracture and place multiple cannulated screws to fix her fracture. Pros and cons of surgery were explained to the patient. These include infection blood loss nonunion malunion blood clots etc. We discussed cannulated screw fixation versus hemiarthroplasty. She is in favor of proceeding with a cannulated screw fixation. She realizes if this is unsuccessful she may require another surgery, namely hip [place] prostheses. Consent has been signed. Leg has been marked.
[2024-01-28] MEDS ORDERED: ePHEDrine 50 MG/ML VIAL IVP PRN (14:55)
[2024-01-28] MEDS ORDERED: NALOXONE 0.4 MG/ML VIAL IVP PRN (14:55)
[2024-01-28] MEDS ORDERED: ATROPINE ABBOJECT 1 MG/10 ML SYRINGE IVP PRN (14:55)
[2024-01-28] MEDS ORDERED: MORPHINE 2 MG/ML CARPUJECT IVP PRN (14:55)
--- NOTE | 2024-01-28 14:55 | OPERATIVE REPORT ---
Operative Report - General Admit Date: 01/28/24 Procedure Date: 01/28/24 Planned Procedure: Closed reduction and multiple cannulated screw fixation of a right subcapital hip fracture Pre-Op Diagnosis: Mildly displaced right subcapital hip fracture Procedure Performed: Closed reduction and multiple cannulated screw fixation of right subcapital hip fracture Post Op Diagnosis: Same - Procedure Note Primary Surgeon: Bre Srinivasan MD Anesthesia Provider: Stephane Isbell CRNA Anesthesia Technique: General ET tube Estimated Blood Loss (mL): 50 Complications: None - Other Other Information/Narrative: Description of procedure: Patient was taken the operating room from the emergency room on the day of her admission where she was placed under a general anesthetic in the supine position. No complications. She was then positioned supine onto the fracture [place] table. Right fractured lower extremity was then placed into axial traction with the leg internally rotated about 20 degrees. The left leg was then widely flexed and abducted her that at the hip and held in the well-leg schaeffer. Fluoroscopic views of the hip fracture on the right side was then obtained in AP and lateral projection. This showed a good reduction of our subcapital hip fracture in both views. We then prepped and draped the lateral aspect of the proximal thigh in the usual fashion for our procedure. Making a small longitudinal skin incision laterally in the proximal thigh we dissected down to the lateral femoral cortex. We then proceeded to insert with power threaded tip guidepin through the guide up through the proximal femur femoral neck and into the femoral head. Fluoroscopic views in both AP and lateral projection showed good reduction of our fracture as well as proper placement of our guidepin both in its position and depth of penetration. Satisfied with this we then used the parallel pin guide to insert 2 additional pins across our fracture point. Fluoroscopic view again in AP and lateral projection showed good positioning of our 3 guidepins with maintenance of the fracture reduction. Satisfied with the placement of our pins we then used the direct measuring guide to determine short threaded large cannulated screws would be used 1 less than 95 mm with washer another 95 mm in length and finally 185 mm in length. Under power we then proceeded to insert all 3 of the selected screws in the appropriate guidepin. Fluoroscopic views at this point today again showed the maintenance of the fracture reduction as well as satisfactory placement and depth of our 3 cannulated screws. Guidepins were then removed. We then irrigated the wound thoroughly with saline. Then closed the fascia jose ramon layer using 1 simple stitch of 2-0 Vicryl. Skin froy then used to approximate the skin edge. Wound was then dressed and patient taken off the [place] table and transferred to her postop bed in satisfactory condition. Estimated blood loss: 50 mL of blood Replacement: 1000 cc crystalloid Intraoperative complications: None Plan: Patient will be advanced in physical therapy walker ambulating toe-touch weightbearing status on the right side for the next 4 to 5 weeks. Will follow- up in orthopedic clinic upon discharge in about 2 weeks time for skin staple removal and repeat x-rays.
[2024-01-28] MEDS ORDERED: DOCUSATE SODIUM 100 MG CAPSULE PO PRN (14:59)
[2024-01-28] MEDS: fentaNYL 100 MCG/2 ML VIAL IVP PRN (15:25)
[2024-01-28] MEDS ORDERED: LIDOCAINE 2% URO-JET 5 ML SYRINGE UR ONE (16:04)
[2024-01-28] MEDS ORDERED: SODIUM CHLORIDE FLUSH 0.9% 10 ML SYRINGE IVP SCH (17:00)
[2024-01-28] MEDS: PHENYLEPHRINE 20 MG in SODIUM CHLORIDE 0.9% 248 ML IV ONE (17:29)
[2024-01-28] MEDS: LACTATED RINGERS 1,000 ML IV SCH (17:29)
[2024-01-28] MEDS: NS W/20 MEQ KCL 1,000 ML IV SCH (18:26)
[2024-01-28] MEDS: SODIUM CHLORIDE FLUSH 0.9% 10 ML SYRINGE IVP SCH (18:26)
--- NOTE | 2024-01-28 18:47 | PHARMACY PROGRESS NOTE ---
- Best Possible Medication History Admit Date and Time: 01/28/24 1148 Processed by: Pharmacy Medications reviewed in ED?: No Medication History completed: Yes Patient Interview: Completed Secondary Source(s): Physician records, Pharmacy records, Insurance records As the person ultimately responsible for medication therapy, providers are able to order a medication from an existing home medication list in [facility] via the "Reconcile Routine" prior to Confirmation of that medication by ground support agent. Such practice is discouraged except when the physician, in their clinical judgment, deems that a medical need exists for a medication without regard to previous use.
[2024-01-28] MEDS: ACETAMINOPHEN 500 MG TABLET PO SCH (22:19)
[2024-01-28] MEDS: CELECOXIB 100 MG CAPSULE PO SCH (22:19)
[2024-01-28] MEDS: GABAPENTIN 300 MG CAPSULE PO SCH (22:19)
[2024-01-28] MEDS: ceFAZolin (2G) 2 GM in SODIUM CHLORIDE 0.9% MINIBAG 100 ML IV SCH (22:20)
[2024-01-28] MEDS: ASPIRIN EC 81 MG TABLET PO SCH (22:20)
[2024-01-28] MEDS: CALCIUM CARBONATE CHEW 500 MG TABLET PO SCH (22:20)
[2024-01-28] MEDS: PRAMIPEXOLE 0.25 MG TABLET PO SCH (22:23)
[2024-01-29] MEDS: CYCLOBENZAPRINE 10 MG TABLET PO PRN (02:57)
[2024-01-29 05:54] LABS: HCT - HEMATOCRIT 28.6 % (37.0-47.0); HGB - HEMOGLOBIN 9.3 g/dL (12.0-16.0)
[2024-01-29] MEDS: PANTOPRAZOLE 40 MG TABLET PO SCH (06:23)
[2024-01-29] MEDS: SODIUM CHLORIDE FLUSH 0.9% 10 ML SYRINGE IVP PRN (06:24)
--- NOTE | 2024-01-29 07:31 | XRAY Report ---
PROCEDURE: OR C-Arm Procedure INDICATIONS: RIGHT HIP PINNING FLUORO TIME: 000.5 TECHNIQUE: 2 fluoroscopy images obtained. COMPARISON: CT pelvis, 01/25/2024. FINDINGS: 2 intraoperative fluoroscopy images demonstrate ORIF of right femoral neck fracture with pl acement of 3 surgical screw in the femoral neck. IMPRESSION: ORIF of right femoral neck fracture. Reviewed by: Magnus Crawford MD on 01/29/2024 7:30 AM PDT Approved by: Magnus Crawford MD on 01/29/2024 7:30 AM PDT Station ID: [id number]
[2024-01-29] MEDS: MULTIVITAMIN TABLET PO SCH (08:15)
--- NOTE | 2024-01-29 08:37 | PROVIDER PROGRESS NOTE ---
Subjective - Prog Note Date Prog Note Date: 01/29/24 Prog Note Time: 08:36 - Subjective Pt reports feeling: Improved Subjective: Some issues overnight with legs being restless and disturbing her sleep. Reports that her right hip feels much better than pre op. Current Medications - Current Medications Current Medications: Medications Pramipexole Dihydrochloride (Pramipexole 0.25 Mg Tablet) 0.25 mg PO QPM [facility] Last Admin: 01/28/24 22:23 Dose: 0.25 mg Acetaminophen (Acetaminophen 500 Mg Tablet) 1,000 mg PO Q6H [facility] Last Admin: 01/29/24 15:16 Dose: 1,000 mg Alendronate Sodium (Alendronate 70 Mg Tablet) 70 mg PO Q7D [facility] Last Admin: 01/29/24 10:59 Dose: 70 mg Aspirin (Aspirin Ec 81 Mg Tablet) 81 mg PO BID [facility] Last Admin: 01/29/24 09:33 Dose: 81 mg Calcium Carbonate/Glycine (Calcium Carb (Oyster Shell) 500 Mg Tablet) 500 mg PO DAILY [facility] Last Admin: 01/29/24 09:33 Dose: 500 mg Celecoxib (Celecoxib 100 Mg Capsule) 200 mg PO BID [facility] Last Admin: 01/29/24 10:30 Dose: Not Given Cholecalciferol (Cholecalciferol 5,000 Unit Capsule) 5,000 unit PO DAILY [facility] Last Admin: 01/29/24 09:34 Dose: 5,000 unit Cyclobenzaprine HCl (Cyclobenzaprine 10 Mg Tablet) 10 mg PO QPM PRN PRN Reason: Spasms Last Admin: 01/29/24 02:57 Dose: 10 mg Docusate Sodium (Docusate Sodium 100 Mg Capsule) 100 mg PO BID PRN PRN Reason: Constipation Enoxaparin Sodium (Enoxaparin 30 Mg/0.3 Ml Syringe) 30 mg SUBQ DAILY [facility] Last Admin: 01/29/24 09:34 Dose: 30 mg Gabapentin (Gabapentin 300 Mg Capsule) 300 mg PO TID [facility] Last Admin: 01/29/24 13:23 Dose: 300 mg Hydromorphone HCl (Hydromorphone 0.5 Mg/0.5 Ml Syringe) 0.5 mg IVP Q2H PRN PRN Reason: Severe Pain (Level 7-10) Multivitamins (Multivitamin Tablet) 1 tab PO DAILYWM [facility] Last Admin: 01/29/24 08:15 Dose: 1 tab Ondansetron HCl (Ondansetron 4 Mg/2 Ml Vial) 4 mg IVP Q6HR PRN PRN Reason: Nausea / Vomiting Oxycodone HCl (Oxycodone 5 Mg Tablet) 5 mg PO Q6HR PRN PRN Reason: Severe Breakthrough pain(8-10) Pantoprazole Sodium (Pantoprazole 40 Mg Tablet) 40 mg PO QDAC [facility] Last Admin: 01/29/24 06:23 Dose: 40 mg Polyethylene Glycol (Polyethylene Glycol 3350 17 Gm Packet) 17 gm PO BID [facility] Last Admin: 01/29/24 10:35 Dose: 17 gm Objective - Vital Signs/Intake & Output Vital Signs: Vital Signs x48h Temp Pulse Resp BP BP Pulse Ox 01/29/24 07:47 36.3 C L 91 18 123/58 L 95 01/29/24 05:48 37.0 C 92 20 117/59 L 98 01/29/24 00:56 37.1 C 110 H 18 107/62 95 Intake & Output: Intake & Output 01/26/24 01/27/24 01/28/24 01/29/24 23:59 23:59 23:59 23:59 Intake Total 530 100 Output Total 1900 600 Balance -1370 -500 - Objective General Appearance: positive: No acute distress Eyes Bilateral: positive: Normal inspection ENT: positive: ENT inspection nml Neck: positive: Nml inspection Respiratory: positive: No respiratory distress, Breath sounds nml Cardiovascular: positive: Regular rate & rhythm Peripheral Pulses: 2+ Dorsalis pedis (R), 2+ Dorsalis pedis (L), 2+ Posterior tibialis (R), 2+ Posterior tibialis (L) Abdomen: positive: Non-tender Back: positive: Nml inspection Skin: positive: Color nml (right hip incisional dressing intact without strike through.) Extremities: positive: Pedal edema (mild bilateral, R>L) Neurologic/Psychiatric: positive: Oriented x3 - Lab Results Fish Bones: 01/29/24 05:49 01/28/24 10:59 Other Labs: Lab Results x24hrs 01/29/24 01/28/24 01/28/24 Range/Units 05:49 10:59 10:59 WBC 7.2 (4.8-10.8) x10^3/uL RBC 3.95 L (4.20-5.40) 10^6/uL Hgb 9.3 L 11.3 L (12.0-16.0) g/dL Hct 28.6 L 36.8 L (37.0-47.0) % MCV 93.2 (81.0-99.0) fL MCH 28.6 (27.0-31.0) pg MCHC 30.7 L (32.0-36.0) g/dL RDW 13.9 (12.0-15.0) % Plt Count 297 (130-450) 10^3/uL MPV 9.5 (7.9-10.8) fL Neut # (Auto) 5.1 (1.5-6.6) 10^3/uL Lymph # (Auto) 1.1 L (1.5-3.5) 10^3/uL [place] # (Auto) 0.8 (0.0-1.0) 10^3/uL Eos # (Auto) 0.1 (0.0-0.7) 10^3/uL Baso # (Auto) 0.0 (0.0-0.1) 10^3/uL Absolute Nucleated RBC 0.00 x10^3/uL Nucleated RBC % 0.0 /100WBC Sodium 134 L (135-145) mmol/L Potassium 4.3 (3.5-4.5) mmol/L Chloride 99 L (101-111) mmol/L Carbon Dioxide 28 (21-32) mmol/L Anion Gap 7.0 (6-13) BUN 13 (6-20) mg/dL Creatinine 0.6 (0.6-1.3) mg/dL Estimated GFR (MDRD) 96 (>89) Glucose 99 (74-104) mg/dL Calcium 9.9 (8.5-10.3) mg/dL Total Bilirubin 0.5 (0.2-1.0) mg/dL AST 15 (10-42) IU/L ALT 13 (10-60) IU/L Alkaline Phosphatase 66 (42-121) IU/L Total Protein 6.8 (6.4-8.9) g/dL Albumin 4.1 (3.2-5.5) g/dL Globulin 2.7 (2.1-4.2) g/dL Albumin/Globulin Ratio 1.5 (1.0-2.2) Lipase < 10 L (11-82) U/L ABX Reporting Has patient been on IV antibiotics over the past 48 hours?: Yes Assessment/Plan - Problem List (1) Closed right hip fracture Impression: Conclusion/Plan: Ortho MD has requested toe touch weightbearing 4-6 w postoperatively. 6skin froy will be in for about 2 weeks prior to orthopedics follow-up. needs SNF for rehab. not able to help her adequately at home. Qualifiers: Encounter type: initial encounter Qualified Code(s): S72.001A - Fracture of unspecified part of neck of right femur, initial encounter for closed fracture (2) Osteoporosis Conclusion/Plan: Has been on weekly Fosamax for some time. She will continue this medication. (3) Fall from slip, trip, or stumble Conclusion/Plan: Patient was closely question regarding any instances of palpitations syncope p resyncope related to her falls. I have reviewed her telemetry monitoring from over night. Occasional PACs and PVCs, but no significant arrhythmias. I have discontinued telemetry. (4) Anemia Conclusion/Plan: Acute postoperative anemia. Will repeat CBC in a.m. as well as obtaining iron studies. Consider iron supplementation although would like to prove iron deficiency anemia prior to starting this due to side effects of constipation. (5) Left inguinal hernia Conclusion/Plan: Not detectable on physical exam today. She states that it has always been reducible. (6) Restless legs syndrome Conclusion/Plan: She states that narcotics have made her restless legs worse in the past. Home Mirapex was resumed postoperatively. I ordered an additional dose this afternoon as she was having some discomfort with her restless legs.. Qualifiers: Encounter type: initial encounter Qualified Code(s): S72.001A - Fracture of unspecified part of neck of right femur, initial encounter for closed fracture (7) Constipation Impression: Large stool block burden seen incidentally on CAT scan. She has not had a bowel movement in 5 days. I have ordered MiraLAX twice daily and encouraged her to take fluids she is also on bowel protocol.
[2024-01-29] MEDS ORDERED: CHOLECALCIFEROL 400 UNIT TABLET PO SCH (09:00)
[2024-01-29] MEDS: CALCIUM CARB (OYSTER SHELL) 500 MG TABLET PO SCH (09:33)
[2024-01-29] MEDS: ENOXAPARIN 30 MG/0.3 ML SYRINGE SUBQ SCH (09:34)
[2024-01-29] MEDS: CHOLECALCIFEROL 5,000 UNIT CAPSULE PO SCH (09:34)
[2024-01-29] MEDS: polyethylene glycoL 3350 17 GM PACKET PO SCH (10:35)
[2024-01-29] MEDS: ALENDRONATE 70 MG TABLET PO SCH (10:59)
--- NOTE | 2024-01-29 12:29 | PROVIDER PROGRESS NOTE ---
Subjective - Prog Note Date Prog Note Date: 01/29/24 Prog Note Time: 12:27 - Subjective Pt reports feeling: Improved (Less hip pain now. Some muscle spasms) Objective - Vital Signs/Intake & Output Vital Signs: Vital Signs x48h Temp Pulse Resp BP Pulse Ox 01/29/24 07:47 36.3 C L 91 18 123/58 L 95 01/29/24 05:48 37.0 C 92 20 117/59 L 98 Intake & Output: Intake & Output 01/26/24 01/27/24 01/28/24 01/29/24 23:59 23:59 23:59 23:59 Intake Total 530 1300 Output Total 1900 1100 Balance -1370 200 - Lab Results Fish Bones: 01/29/24 05:49 01/28/24 10:59 Other Labs: Lab Results x24hrs 01/29/24 Range/Units 05:49 Hgb 9.3 L (12.0-16.0) g/dL Hct 28.6 L (37.0-47.0) % - Other Results/Comments Other Results/Comments: Exam: Minimal pain with hip rotation in bed. Moves toes well. Sensation intact. Good cap filling HCT: 28 Assessment/Plan - Problem List (1) Closed right hip fracture Impression: Satis post op PLAN: PT for walker ambulation - TTWB on right Qualifiers: Encounter type: initial encounter Qualified Code(s): S72.001A - Fracture of unspecified part of neck of right femur, initial encounter for closed fracture
--- NOTE | 2024-01-29 12:42 | ADVANCE CARE PLANNING NOTE ---
Advance Care Planning - Planning Encounter Date: 01/29/24 Time: 12:41 Purpose: define goals of care, discuss QOL in light of new hip fracture Parties in Attendance: , daughter, patient. Decisional Capacity of the Patient: decisional - Diagnosis for Encounter (1) Closed right hip fracture Qualifiers: Encounter type: initial encounter Qualified Code(s): S72.001A - Fracture of unspecified part of neck of right femur, initial encounter for closed fracture - Encounter Subjective/Patient's Story: . She has been living independently at home with her . She has been doing quite well but recently has noted that she has started to stumble and fall. She sustained this hip fracture earlier in the week and walked on it for 3 days prior to diagnosis. She feels much better now that it is repaired but she is starting to recognize signs of decline. Objective/Medical Story: Postop day 1 from hip fracture. Stumbling and falling at home. Her will have difficulty caring for her postoperatively. Her daughter is supportive but lives about 3 hours away. Goals of Care: To be comfortable to have quality of life.She does not want to live on machines. She does not want artificial feeding. She does not want to be confined to bed in a jail unable to toilet herself. Plan: Discussed rationale for no CODE STATUS and patient in her 80s. She prefers to remain full code. She understands that should she have a significant event it would be difficult to recover from but she would like this chance. Her daughter and understand these desires. Additional Discussion: POLST documenting full resuscitation was signed by the patient with me in attendance. Code Status: Attempt Resuscitation Time spent on advance care plannin minutes
[2024-01-29] MEDS: PRAMIPEXOLE 0.25 MG TABLET PO ONE (14:07)
[2024-01-30 06:05] LABS: BASOPHILS # (AUTO) 0.1 10^3/uL (0.0-0.1); BASOPHILS % (AUTO) 0.6 %; EOSINOPHILS # (AUTO) 0.2 10^3/uL (0.0-0.7); EOSINOPHILS % (AUTO) 1.8 %; HCT - HEMATOCRIT 31.4 % (37.0-47.0); HGB - HEMOGLOBIN 9.7 g/dL (12.0-16.0); LYMPHOCYTES # (AUTO) 2.6 10^3/uL (1.5-3.5); LYMPHOCYTES % (AUTO) 31.9 %; MEAN CORPUSCULAR HEMOGLOBIN 28.4 pg (27.0-31.0); MEAN CORPUSCULAR HGB CONC 30.9 g/dL (32.0-36.0); MEAN CORPUSCULAR VOLUME 91.8 fL (81.0-99.0); MEAN PLATELET VOLUME 10.1 fL (7.9-10.8); MONOCYTES # (AUTO) 0.8 10^3/uL (0.0-1.0); MONOCYTES % (AUTO) 10.3 %; NEUTROPHILS # (AUTO) 4.5 10^3/uL (1.5-6.6); PLT - PLATELET COUNT 310 10^3/uL (130-450); RED BLOOD COUNT 3.42 10^6/uL (4.20-5.40); RED CELL DISTRIBUTION WIDTH 14.3 % (12.0-15.0); WHITE BLOOD COUNT 8.1 x10^3/uL (4.8-10.8)
[2024-01-30 06:23] LABS: CALCIUM 9.4 mg/dL (8.5-10.3); CREATININE 0.7 mg/dL (0.6-1.3); POTASSIUM 4.6 mmol/L (3.5-4.5)
--- NOTE | 2024-01-30 07:51 | PROVIDER PROGRESS NOTE ---
Subjective - Prog Note Date Prog Note Date: 01/30/24 Prog Note Time: 07:48 - Subjective Pt reports feeling: Improved Objective - Vital Signs/Intake & Output Vital Signs: Vital Signs x48h Temp Pulse Resp BP Pulse Ox 01/30/24 05:32 36.5 C 65 16 125/77 97 Intake & Output: Intake & Output 01/27/24 01/28/24 01/29/24 01/30/24 23:59 23:59 23:59 23:59 Intake Total 530 2530 200 Output Total 1900 1350 Balance -1370 1180 200 - Lab Results Fish Bones: 01/30/24 05:16 01/30/24 05:16 Other Labs: Lab Results x24hrs 01/30/24 01/30/24 Range/Units 05:16 05:16 WBC 8.1 (4.8-10.8) x10^3/uL RBC 3.42 L (4.20-5.40) 10^6/uL Hgb 9.7 L (12.0-16.0) g/dL Hct 31.4 L (37.0-47.0) % MCV 91.8 (81.0-99.0) fL MCH 28.4 (27.0-31.0) pg MCHC 30.9 L (32.0-36.0) g/dL RDW 14.3 (12.0-15.0) % Plt Count 310 (130-450) 10^3/uL MPV 10.1 (7.9-10.8) fL Neut # (Auto) 4.5 (1.5-6.6) 10^3/uL Lymph # (Auto) 2.6 (1.5-3.5) 10^3/uL [place] # (Auto) 0.8 (0.0-1.0) 10^3/uL Eos # (Auto) 0.2 (0.0-0.7) 10^3/uL Baso # (Auto) 0.1 (0.0-0.1) 10^3/uL Absolute Nucleated RBC 0.00 x10^3/uL Nucleated RBC % 0.0 /100WBC Sodium 131 L (135-145) mmol/L Potassium 4.6 H (3.5-4.5) mmol/L Chloride 99 L (101-111) mmol/L Carbon Dioxide 26 (21-32) mmol/L Anion Gap 6.0 (6-13) BUN 20 (6-20) mg/dL Creatinine 0.7 (0.6-1.3) mg/dL Estimated GFR (MDRD) 80 L (>89) Glucose 92 (74-104) mg/dL Calcium 9.4 (8.5-10.3) mg/dL Iron 38 L (50-212) ug/dL TIBC 273 (250-450) ug/dL % Saturation 14 L (20-50) % Transferrin 195 L (203-362) mg/dL - Other Results/Comments Other Results/Comments: Exam: Sitting up in chair. Transfers were easier today. Mildly tender over lateral right hip. Minimal pain with hip motion. N/V ok distally Assessment/Plan - Problem List (1) Closed right hip fracture Impression: Satis post op PLAN: PT as tolerated SNF placement soon. Continue PT SNF: walker ambulate - TTWB on right. RTC in 10-14 days for XR and staple removal. Qualifiers: Encounter type: initial encounter Qualified Code(s): S72.001A - Fracture of unspecified part of neck of right femur, initial encounter for closed fracture
[2024-01-30] MEDS: FERRIC GLUCONATE 125 MG in SODIUM CHLORIDE 0.9% 100ML 100 ML IV ONE (08:16)
--- NOTE | 2024-01-30 13:52 | PROVIDER PROGRESS NOTE ---
Subjective - Prog Note Date Prog Note Date: 01/30/24 Prog Note Time: 13:48 - Subjective Pt reports feeling: Improved Subjective: Her pain is greatly improved. She has been able to transfer to the chair and to the toilet. She has had 4 bowel movements today. She wants to discontinue her bowel meds. She is eager to work with physical therapy and to transfer to a residential facility for further rehabilitation. Current Medications - Current Medications Current Medications: Medications Acetaminophen (Acetaminophen 500 Mg Tablet) 1,000 mg PO Q6H [facility] Last Admin: 01/30/24 15:20 Dose: 1,000 mg Gabapentin (Gabapentin 300 Mg Capsule) 300 mg PO TID [facility] Last Admin: 01/30/24 14:17 Dose: 300 mg Pantoprazole Sodium (Pantoprazole 40 Mg Tablet) 40 mg PO QDAC [facility] Last Admin: 01/30/24 05:16 Dose: 40 mg Polyethylene Glycol (Polyethylene Glycol 3350 17 Gm Packet) 17 gm PO BID [facility] Last Admin: 01/30/24 09:00 Dose: 17 gm Hydromorphone HCl (Hydromorphone 0.5 Mg/0.5 Ml Syringe) 0.5 mg IVP Q2H PRN PRN Reason: Severe Pain (Level 7-10) Multivitamins (Multivitamin Tablet) 1 tab PO DAILYWM [facility] Last Admin: 01/30/24 09:01 Dose: 1 tab Ondansetron HCl (Ondansetron 4 Mg/2 Ml Vial) 4 mg IVP Q6HR PRN PRN Reason: Nausea / Vomiting Oxycodone HCl (Oxycodone 5 Mg Tablet) 5 mg PO Q6HR PRN PRN Reason: Severe Breakthrough pain(8-10) Alendronate Sodium (Alendronate 70 Mg Tablet) 70 mg PO Q7D [facility] Last Admin: 01/29/24 10:59 Dose: 70 mg Aspirin (Aspirin Ec 81 Mg Tablet) 81 mg PO BID [facility] Last Admin: 01/30/24 09:01 Dose: 81 mg Calcium Carbonate/Glycine (Calcium Carb (Oyster Shell) 500 Mg Tablet) 500 mg PO DAILY [facility] Last Admin: 01/30/24 09:02 Dose: 500 mg Celecoxib (Celecoxib 100 Mg Capsule) 200 mg PO BID [facility] Last Admin: 01/30/24 09:02 Dose: 200 mg Cholecalciferol (Cholecalciferol 5,000 Unit Capsule) 5,000 unit PO DAILY [facility] Last Admin: 01/30/24 09:02 Dose: 5,000 unit Cyclobenzaprine HCl (Cyclobenzaprine 10 Mg Tablet) 10 mg PO QPM PRN PRN Reason: Spasms Last Admin: 01/29/24 02:57 Dose: 10 mg Docusate Sodium (Docusate Sodium 100 Mg Capsule) 100 mg PO BID PRN PRN Reason: Constipation Enoxaparin Sodium (Enoxaparin 30 Mg/0.3 Ml Syringe) 30 mg SUBQ DAILY [facility] Last Admin: 01/30/24 09:00 Dose: 30 mg Pramipexole Dihydrochloride (Pramipexole 0.25 Mg Tablet) 0.25 mg PO QPM [facility] Last Admin: 01/29/24 21:57 Dose: 0.25 mg Objective - Vital Signs/Intake & Output Reviewed Vital Signs: Yes Vital Signs: Vital Signs x48h Temp Pulse Resp BP Pulse Ox 01/30/24 13:38 36.6 C 87 16 129/66 98 01/30/24 07:50 36.6 C 75 18 123/76 96 Intake & Output: Intake & Output 01/27/24 01/28/24 01/29/24 01/30/24 23:59 23:59 23:59 23:59 Intake Total 530 2530 920 Output Total 1900 1350 Balance -1370 1180 920 - Objective General Appearance: positive: No acute distress, Alert Eyes Bilateral: positive: Normal inspection ENT: positive: ENT inspection nml Neck: positive: Nml inspection Respiratory: positive: Chest non-tender, Breath sounds nml Cardiovascular: positive: Regular rate & rhythm Peripheral Pulses: 2+ Dorsalis pedis (R), 2+ Dorsalis pedis (L) Abdomen: positive: Non-tender Back: positive: Nml inspection Skin: positive: Color nml (silver impregnated surgical dressing intact without strike through. There is no significant cynthia incisional edema) Extremities: positive: Non-tender, No pedal edema Neurologic/Psychiatric: positive: Oriented x3 - Lab Results Fish Bones: 01/30/24 05:16 01/30/24 05:16 Other Labs: Lab Results x24hrs 01/30/24 01/30/24 Range/Units 05:16 05:16 WBC 8.1 (4.8-10.8) x10^3/uL RBC 3.42 L (4.20-5.40) 10^6/uL Hgb 9.7 L (12.0-16.0) g/dL Hct 31.4 L (37.0-47.0) % MCV 91.8 (81.0-99.0) fL MCH 28.4 (27.0-31.0) pg MCHC 30.9 L (32.0-36.0) g/dL RDW 14.3 (12.0-15.0) % Plt Count 310 (130-450) 10^3/uL MPV 10.1 (7.9-10.8) fL Neut # (Auto) 4.5 (1.5-6.6) 10^3/uL Lymph # (Auto) 2.6 (1.5-3.5) 10^3/uL Ripley # (Auto) 0.8 (0.0-1.0) 10^3/uL Eos # (Auto) 0.2 (0.0-0.7) 10^3/uL Baso # (Auto) 0.1 (0.0-0.1) 10^3/uL Absolute Nucleated RBC 0.00 x10^3/uL Nucleated RBC % 0.0 /100WBC Sodium 131 L (135-145) mmol/L Potassium 4.6 H (3.5-4.5) mmol/L Chloride 99 L (101-111) mmol/L Carbon Dioxide 26 (21-32) mmol/L Anion Gap 6.0 (6-13) BUN 20 (6-20) mg/dL Creatinine 0.7 (0.6-1.3) mg/dL Estimated GFR (MDRD) 80 L (>89) Glucose 92 (74-104) mg/dL Calcium 9.4 (8.5-10.3) mg/dL Iron 38 L (50-212) ug/dL TIBC 273 (250-450) ug/dL % Saturation 14 L (20-50) % Transferrin 195 L (203-362) mg/dL ABX Reporting Has patient been on IV antibiotics over the past 48 hours?: Yes Assessment/Plan - Problem List (1) Closed right hip fracture Impression: Ortho MD has requested toe touch weightbearing 4-6 w postoperatively. skin froy will be in for about 2 weeks prior to orthopedics follow-up. needs SNF for rehab. not able to help her adequately at home. Qualifiers: Encounter type: initial encounter Qualified Code(s): S72.001A - Fracture of unspecified part of neck of right femur, initial encounter for closed fracture (2) Hyponatremia Impression: New decrease in sodium from 134 at admission to 131. I will check BMP in AM. (3) Osteoporosis Impression: Hi has been on weekly Fosamax for some time. I will continue this medication. I have ordered calcium and vitamin D for her as well. (4) Fall from slip, trip, or stumble Impression: Patient was closely question regarding any instances of palpitations syncope presyncope related to her falls. I have reviewed her telemetry monitoring from over night. Occasional PACs and PVCs, but no significant arrhythmias. I have discontinued telemetry. (5) Anemia Impression: Acute postoperative anemia. Hemoglobin drop from 11.3 at admission to 9.3 on postop day 1. She has findings of low iron, low transferrin. Due to her history of constipation I have elected to give her IV iron. I will repeat her CBC in the a.m. (6) Left inguinal hernia Impression: Not detectable on physical exam today. She states that it has always been reducible. (7) Restless legs syndrome Impression: She states that narcotics have made her restless legs worse in the past. Home Mirapex was resumed postoperatively. Her restless legs have caused her much less discomfort today. We will continue current therapy. (8) Constipation Impression: Preoperatively had not had a bowel movement in 5 days. Large stool burden burden was seen on CT incidentally. Essentially resolved. She has had 4 bowel movements today. MiraLAX has been discontinued.
[2024-01-30] MEDS: PRAMIPEXOLE 0.25 MG TABLET PO ONE (16:35)
[2024-01-30] MEDS: PANTOPRAZOLE 40 MG TABLET PO SCH (21:41)
[2024-01-31] MEDS: oxyCODONE 5 MG TABLET PO PRN (03:26)
[2024-01-31 07:00] LABS: BASOPHILS # (AUTO) 0.1 10^3/uL (0.0-0.1); BASOPHILS % (AUTO) 0.9 %; EOSINOPHILS # (AUTO) 0.3 10^3/uL (0.0-0.7); EOSINOPHILS % (AUTO) 5.1 %; HCT - HEMATOCRIT 34.8 % (37.0-47.0); HGB - HEMOGLOBIN 10.4 g/dL (12.0-16.0); LYMPHOCYTES # (AUTO) 2.3 10^3/uL (1.5-3.5); LYMPHOCYTES % (AUTO) 35.4 %; MEAN CORPUSCULAR HEMOGLOBIN 27.9 pg (27.0-31.0); MEAN CORPUSCULAR HGB CONC 29.9 g/dL (32.0-36.0); MEAN CORPUSCULAR VOLUME 93.3 fL (81.0-99.0); MEAN PLATELET VOLUME 9.5 fL (7.9-10.8); MONOCYTES # (AUTO) 0.7 10^3/uL (0.0-1.0); MONOCYTES % (AUTO) 10.5 %; NEUTROPHILS # (AUTO) 3.1 10^3/uL (1.5-6.6); NEUTROPHILS % (AUTO) 47.6 %; PLT - PLATELET COUNT 326 10^3/uL (130-450); RED BLOOD COUNT 3.73 10^6/uL (4.20-5.40); WHITE BLOOD COUNT 6.5 x10^3/uL (4.8-10.8)
[2024-01-31 07:24] LABS: CALCIUM 9.8 mg/dL (8.5-10.3); CREATININE 0.6 mg/dL (0.6-1.3); POTASSIUM 4.8 mmol/L (3.5-4.5)
--- NOTE | 2024-01-31 10:37 | Discharge Plan ---
"Discharge Plan for SNF / [facility] - Discharge Plan And Transition Orders Problem Reviewed?: Yes Disposition: 03 SNF DC/Xfer Condition: Good Allergies and Adverse Reactions: Allergies Allergy/AdvReac Type Severity Reaction Status Date / Time Penicillins Allergy Mild Rash Verified 01/28/24 09:44 Tetracyclines Allergy Mild Rash Verified 01/28/24 09:44 ropinirole [From Requip] Allergy Unknown Verified 01/28/24 09:44 Health Concerns: You were admitted with a right hip fracture after a fall several days before. Here in the hospital you have obtained definitive care of your hip fracture. He will go to a retirement facility to continue to heal from your hip fracture and get appropriate rehabilitation. You should be able to return home at the completion of your therapy. Plan of Treatment: When she leaves the hospital you will go to [facility] and continue to get physical therapy. The plan is to control your postoperative pain and allow you to heal from your hip surgery. You will need to see Dr. Srinivasan or one of his colleagues in clinic within 2 weeks from your date of surgery. At that time they will assess your surgical wound. You need to be toe-touch weightbearing only for 4 to [address] Srinivasan will help determine when you can put weight on your right leg. You should continue on your alendronate for osteoporosis. Additionally we have added calcium and vitamin D therapy to help your bones heal. Care Goals: We had a discussion about care planning. You have decided that you want to have full CODE STATUS. We have filled out a POLST form and you will get full treatment in the event of a medical emergency. We also talked about the fact that if you cannot recover fully you would not want to be kept alive by artifici al means. While I think you can return home after your period of rehab, you may begin to need more help at home. You and your need to consider living where it is easier for your children to help you. Assessment: Admission for right hip fracture which was treated operatively after trip and fall at home. While you were here in the hospital we have control your postoperative pain. We have treated your constipation. We have treated your postoperative anemia and controlled her restless leg syndrome symptoms. - SNF / [facility] Transition Orders Admit to (Facility): [facility] Discharge Diagnosis: Right femoral neck fracture Osteoporosis Postoperative anemia Restless leg syndrome Left inguinal hernia Ground-level fall Hyponatremia Medicare Certification Statement: I certify that Post Hospital retirement care is medically necessary on a continuing basis for any of the conditions for which she/he is receiving care during hospitalization. Notify PCP of admission, Dr Chris Sanderson and forward orders to primary provider for signature. Weight on admission and: Weekly Other Notification Orders: Call PCP immediately if patient develops dyspnea, chest pain/tightness or edema. House Bowel Program: Yes Additional Bowel Program Orders: If no BM after 2 days, nurse may give M.O.M. 30ml PO PRN and/or ducolax Supp 1 MD and/or GILDA 250mg P.O., and/or senna 1-2 tabs PO. On day 3 nurse may give repeat above order until residents constipation is resolved. Annual Influenza Vaccine (between Apr 23 and November 20): Yes Two-step PPD per [facility] [phone] or approved exception documents: Yes Oxygen Orders: none Orthopedic Orders: Toe touch weight bearing to the right lower extremity Medication Orders: PLEASE REFER TO THE DISCHARGE MEDICATION LIST. Insulin Orders?: No - Medications New Prescriptions: oxyCODONE [Roxicodone] 5 mg PO Q6HR PRN 7 Days #28 tab PRN Reason: Severe Breakthrough pain(8-10) Celecoxib [CeleBREX] 200 mg PO BID 90 Days #180 cap Aspirin EC [Ecotrin] 81 mg PO BID #90 tab Alendronate [Fosamax] 70 mg PO SA 90 Days #12 tab Pramipexole [Mirapex] 0.25 mg PO QPM #90 tab Gabapentin [Neurontin] 300 mg PO TID 90 Days #270 cap Omeprazole 20 mg PO BID 90 Days #180 tab Calcium Carb (Oyster Shell) [Oysco-500] 500 mg PO DAILY #90 tab Acetaminophen [Tylenol] 1,000 mg PO Q6H #90 tab Cholecalciferol [Vitamin D3] 5,000 unit PO DAILY #90 cap - Diet Type: Geriatric Texture: Regular Liquids: Thin May have monthly special meal: Yes - Therapies | Activity Therapy: Evaluation | Treat if indicated: PT, OT Rehabilitation Potential: Maximize functional status, Return to independent living Activity: Additional Comments Weight Bearing: Toe Touch (right lower extremity toe touch weight bearing until released by Dr Srinivasan) Extremities: TTWBRLE Assistance Devices: Wheelchair, Walker Follow Up: Dr Srinivasan, orthopedics at [facility]. 2 weeks for wound check"
--- NOTE | 2024-01-31 11:48 | DISCHARGE SUMMARY ---
"Discharge Summary Admit Date: 01/28/24 Discharge Date: 01/31/24 Discharging Provider: Dain FERREIRA Primary Care Provider: Chris Sanderson Code Status: Attempt Resuscitation Condition at Discharge: Good Discharge Disposition: 03 SNF DC/Xfer - DIAGNOSES Admission Diagnoses: Right femoral neck fracture Osteoporosis Ground-level fall Anemia Left inguinal hernia Restless leg syndrome Discharge Diagnoses with Status of Each Condition: Right femoral neck fracture On hospital day 1 was taken to the OR by Dr. Srinivasan of orthopedics. She had percutaneous pinning of her right femoral neck fracture. Her postoperative pain has been well-controlled although somewhat complicated by her restless leg syndrome. Dr. Srinivasan has requested that she be toe-touch weightbearing for 4 to 6 weeks postoperatively. For this reason she will need to go to senior living facility for rehabilitation as her is unable to help her at home. Hyponatremia As low as 131. Normalized by the time of discharge. Osteoporosis She has been on Fosamax weekly for quite some time. We added calcium and vitamin D to her regimen. She will continue this. Ground-level fall Patient has been tripping and falling at home. She had a fall 3 days prior to admission. She was seen briefly in the emergency department. CT of the pelvis was read as negative for fracture and she was discharged home. She was using a walker at home and ambulating when she continued to have severe right groin pain. She was reevaluated in the emergency department and found to have a displaced femoral neck fracture. She was questioned closely regarding instances of palpitations, syncope, or prank presyncope related to her falls. She was placed on telemetry overnight at the time of admission. Occasional PACs and PVCs were noted but no significant arrhythmias. Anemia Slight anemia at the time of admission with a hemoglobin of 11.3 down to 9.3 on postop day 1. She was given 1 dose of IV iron after findings of low iron and low transferrin on her iron labs. Due to her constipation we have elected to give her IV iron. Her hemoglobin is improving at the time of discharge her hemoglobin is 10.4. Left inguinal hernia. History of this. Patient states this always been reducible. She is aware of signs symptoms of hernia strangulation and incarceration. She has not had any discomfort while she has been here in the hospital. Restless leg syndrome In the past narcotics have made her restless legs worse. She is fairly well- controlled on Mirapex is a home medication. She has been given several extra doses while here in the hospital as she has had increased difficulty which is caused her postop pain. She will discharge to senior living facility on her home regimen of Mirapex. Constipation At admission had not had bowel movement in 5 days. Large stool burden was incidentally evident on her CT of the right lower extremity. Postoperatively she was given MiraLAX twice daily had several large bowel movements and felt much better. She will be placed on bowel regimen at senior living facility. - HPI History of Present Illness: Presented to the emergency department with right hip pain. Patient with a fall several days ago which caused the right hip pain. She was seen in the emergency department discharged home. She has been ambulating at home with a walker. Return to the emergency department again today because the pain was so severe. She states she has a history of difficulties with balance. And recently has been falling more often. She denies any syncope or presyncope related to these falls. She has not been having any palpitations. She states her balance is just bad and she trips and falls. She was prescribed pain medication at her previous emergency department visit but did not pick it up. - CONSULTS | PROCEDURES Procedures: Closed reduction and multiple cannulated screw fixation of right subcapital hip fracture - HOSPITAL COURSE Hospital Course: Presented to the emergency department with right hip and groin pain several days after a fall. She had been seen on the date of the fall was discharged home and then return to the emergency department with worsening pain and dysfunction. On hospital day 1 she was taken to the operating room for repair of her hip fracture. She was transferred to the floor postoperatively and did well. Her postoperative pain and restless leg syndrome were controlled with Mirapex and oxycodone. She was started on calcium and vitamin D in addition to her weekly alendronate. Segovia catheter was removed on postoperative day 1. She was able to void without difficulty. She had not had a bowel movement for 5 days before admission. Her constipation was treated aggressively with twice daily MiraLAX and relieved. She was mildly anemic preoperatively her hemoglobin dropped as low as 9.3. Iron panel revealed iron deficiency anemia which is worsened in the postoperative state. She was given IV iron and is responding well to that with a discharge hemoglobin of 10.4. She had some hyponatremia which was self-limited and resolved. Mild hyperkalemia at 4.8 noted on the date of discharge. recommend repeat BMP in the outpatient setting. On hospital day 2 advance care planning discussion was had with her and daughter in attendance. She would like to remain full code although she does not want to live in a state where she is dependent on others for her care. She does feel like she would like 1 attempt at resuscitation. Therefore full code POLST was filled out and placed on the chart. - ALLERGIES Allergies/Adverse Reactions: Allergies Allergy/AdvReac Type Severity Reaction Status Date / Time Penicillins Allergy Mild Rash Verified 01/28/24 09:44 Tetracyclines Allergy Mild Rash Verified 01/28/24 09:44 ropinirole [From Requip] Allergy Unknown Verified 01/28/24 09:44 - MEDICATIONS Home Medications: Ambulatory Orders Medication Instructions Recorded Confirmed Multivitamin [Multi-Vitamin Daily] 1 each PO DAILY 05/25/13 01/28/24 Acetaminophen [Tylenol] 1,000 mg PO Q6H #90 tab 01/31/24 Alendronate [Fosamax] 70 mg PO SA 90 Days #12 tab 01/31/24 Aspirin EC [Ecotrin] 81 mg PO BID #90 tab 01/31/24 Calcium Carb (Oyster Shell) 500 mg PO DAILY #90 tab 01/31/24 [Oysco-500] Celecoxib [CeleBREX] 200 mg PO BID 90 Days #180 cap 01/31/24 Cholecalciferol [Vitamin D3] 5,000 unit PO DAILY #90 cap 01/31/24 Gabapentin [Neurontin] 300 mg PO TID 90 Days #270 cap 01/31/24 Omeprazole 20 mg PO BID 90 Days #180 tab 01/31/24 Pramipexole [Mirapex] 0.25 mg PO QPM #90 tab 01/31/24 oxyCODONE [Roxicodone] 5 mg PO Q6HR PRN 7 Days #28 tab 01/31/24 - PHYSICAL EXAM AT DISCHARGE General Appearance: positive: No acute distress Eyes Bilateral: positive: Normal inspection ENT: positive: ENT inspection nml Neck: positive: Nml inspection Respiratory: positive: Chest non-tender, No respiratory distress, Breath sounds nml Cardiovascular: positive: Regular rate & rhythm Peripheral Pulses: positive: 2+ Abdomen: positive: Non-tender Back: positive: Nml inspection Skin: positive: Color nml Extremities: positive: Non-tender, Other (surgical dressing intact without strike through. There is no erythema around the surgical site. ) Neurologic/Psychiatric: positive: Oriented x3 - LABS Result Diagrams: 01/31/24 06:29 01/31/24 06:29 - QUALITY (Female Hip Fx Only) Was patient sent home on osteoporosis medication?: Yes (Ca, Vit D, continue Fosamax) - FOLLOW UP Follow Up: Ortho, 2 weeks, Dr Srinivasan - TIME SPENT Time Spent in Discharge (Minutes): 45"
[2024-01-31 13:12] VITALS: BP 133/67; O2SAT 100
== END 2024-01-31 14:16 | DRG 536 ==
LOC: EDUNIT# → ED 09:37 → MS2 11:48
PROVIDERS: ADMIT Physician Assistant Medical; ATTEND Physician Assistant Medical
PROC: 0QS63ZZ Reposition Right Upper Femur, Percutaneous Approach (ICD-10-PCS; principal; 2024-01-28 13:30)
DX: S72.011A Unspecified intracapsular fracture of right femur, initial encounter for closed fracture (principal); W19.XXXA Unspecified fall, initial encounter; E87.1 Hypo-osmolality and hyponatremia; M81.0 Age-related osteoporosis without current pathological fracture; W01.0XXA Fall on same level from slipping, tripping and stumbling without subsequent striking against object, initial encounter; K40.90 Unilateral inguinal hernia, without obstruction or gangrene, not specified as recurrent; G25.81 Restless legs syndrome; I49.1 Atrial premature depolarization; I49.3 Ventricular premature depolarization; K59.00 Constipation, unspecified; D50.9 Iron deficiency anemia, unspecified; E87.5 Hyperkalemia; M19.90 Unspecified osteoarthritis, unspecified site; G89.29 Other chronic pain; M54.9 Dorsalgia, unspecified; Z79.899 Other long term (current) drug therapy
CPT/HCPCS: 36415; 71045; 73700; 80048; 80053; 83540; 83690; 84466; 85014; 85018; 85025; 93005; 96374; 97162; 97166; 99285; A9270; J0131; J1170; J1650; J2372; J2916; J7120

== ENCOUNTER 2024-02-14 08:02 | Outpatient (CLI) | payer MEDICARE, OTHER ==
--- NOTE | 2024-02-14 09:55 | XRAY Report ---
PROCEDURE: Hips w/Pelvis 3-4V BL INDICATIONS: HIP PAIN RIGHT TECHNIQUE: 2 views of the pelvis and right hip COMPARISON: CT pelvis 01/25/2024 FINDINGS: Status post fixation of subcapital right femoral neck fracture with 3 partially threaded screws. The hardware appears intact without evidence of complication. Partially visualized lower lumbar spine hung dware. Decreased osseous mineralization. Atherosclerotic vascular calcifications. IMPRESSION: Postoperative changes from right femoral neck fracture fixation. No evidence of hardware complication . Reviewed by: Manoj Dubon MD on 02/14/2024 9:53 AM PDT Approved by: Manoj Dubon MD on 02/14/2024 9:53 AM PDT Station ID: [id number]
== END 2024-02-14 08:03 | disposition home or self-care (01) ==
LOC: DI 08:02
PROVIDERS: ATTEND Orthopaedic Surgery
DX: M25.551 Pain in right hip (principal)

== ENCOUNTER 2024-04-03 09:10 | Outpatient (CLI) | payer MEDICARE, OTHER ==
--- NOTE | 2024-04-03 16:20 | XRAY Report ---
PROCEDURE: Hip w/Pelvis 2-3V RT INDICATIONS: UNSPEC INTRACAPSULAR FX OF RIGHT FEMUR TECHNIQUE: 2 views of the hip were acquired. COMPARISON: 02/14/2024 FINDINGS: Bones: Status post screw fixation of right femoral neck fracture. Fracture line appears less distinc t, consistent with healing. No evidence of hardware complication. Re-demonstration of lower lumbar sp ine hardware.. No suspicious bony lesions. Soft tissues: No suspicious soft tissue calcifications or masses. IMPRESSION: Postoperative changes from right femoral neck fracture fixation. No evidence of hardware complication . Reviewed by: Manoj Dubon MD on 04/03/2024 4:18 PM PDT Approved by: Manoj Dubon MD on 04/03/2024 4:18 PM PDT Station ID: [id number]
== END 2024-04-03 09:11 | disposition home or self-care (01) ==
LOC: DI 09:10
PROVIDERS: ATTEND Orthopaedic Surgery
DX: S72.011D Unspecified intracapsular fracture of right femur, subsequent encounter for closed fracture with routine healing (principal)

== ENCOUNTER 2024-04-13 16:35 | Outpatient (CLI) | payer MEDICARE, OTHER ==
[2024-04-13 16:54] LABS: BASOPHILS # (AUTO) 0.1 10^3/uL (0.0-0.1); BASOPHILS % (AUTO) 0.9 %; EOSINOPHILS # (AUTO) 0.2 10^3/uL (0.0-0.7); EOSINOPHILS % (AUTO) 2.9 %; HCT - HEMATOCRIT 37.6 % (37.0-47.0); HGB - HEMOGLOBIN 11.9 g/dL (12.0-16.0); LYMPHOCYTES # (AUTO) 1.5 10^3/uL (1.5-3.5); LYMPHOCYTES % (AUTO) 23.2 %; MEAN CORPUSCULAR HEMOGLOBIN 29.2 pg (27.0-31.0); MEAN CORPUSCULAR HGB CONC 31.6 g/dL (32.0-36.0); MEAN CORPUSCULAR VOLUME 92.2 fL (81.0-99.0); MONOCYTES # (AUTO) 0.7 10^3/uL (0.0-1.0); NEUTROPHILS # (AUTO) 4.1 10^3/uL (1.5-6.6); NEUTROPHILS % (AUTO) 62.8 %; PLT - PLATELET COUNT 294 10^3/uL (130-450); RED BLOOD COUNT 4.08 10^6/uL (4.20-5.40); RED CELL DISTRIBUTION WIDTH 13.7 % (12.0-15.0); WHITE BLOOD COUNT 6.5 x10^3/uL (4.8-10.8)
[2024-04-13 17:07] LABS: CREATININE 0.5 mg/dL (0.6-1.3); POTASSIUM 4.6 mmol/L (3.5-4.5)
--- NOTE | 2024-04-14 10:56 | XRAY Report ---
PROCEDURE: Hip w/Pelvis 2-3V RT INDICATIONS: HIP JOINT PX,RIGHT TECHNIQUE: 04/03/2024 views of the hip were acquired. COMPARISON: CT pelvis dated 01/25/2024, C-arm fluoroscopic procedure dated 01/28/2024, x-ray pelvis and hips dated 02/14/2024, x-ray pelvis and hips dated 04/03/2024. FINDINGS: Bones: 3 cannulated screws again are noted transfixing the right femoral neck. Over time, the fractu re has developed comparison angulation, not initially present. Fracture line still visible. Note is m leanna of extensive lumbosacral fusion hardware. Soft tissues: No suspicious soft tissue calcifications or masses. IMPRESSION: Development of varus angulation over time at a subcapital femoral neck fracture site, despite fixatio n with 3 cannulated screws. Reviewed by: Leo Gong MD on 04/14/2024 10:55 AM PDT Approved by: Leo Gong MD on 04/14/2024 10:55 AM PDT Station ID: [id number]
--- NOTE | 2024-04-14 13:12 | XRAY Report ---
PROCEDURE: Knee 3V RT INDICATIONS: KNEE JOINT PX,RIGHT TECHNIQUE: 3 views of the knee(s) were acquired. COMPARISON: None. FINDINGS: Bones: No fractures or dislocations. No suspicious bony lesions. Knee arthroplasty is present. Mireles rdware is intact without evidence of hardware fracture or periprosthetic lucency to suggest loosening . Soft tissues: No knee joint effusion. No suspicious soft tissue calcifications or masses. IMPRESSION: No acute bony abnormality. Reviewed by: Eula Garcia MD on 04/14/2024 1:11 PM PDT Approved by: Eula Garcia MD on 04/14/2024 1:11 PM PDT Station ID: [id number]
== END 2024-04-13 16:36 | disposition home or self-care (01) ==
LOC: DI 16:35
PROVIDERS: ATTEND Emergency Medicine
DX: S72.011D Unspecified intracapsular fracture of right femur, subsequent encounter for closed fracture with routine healing (principal); M21.151 Varus deformity, not elsewhere classified, right hip; M25.561 Pain in right knee; Z96.651 Presence of right artificial knee joint
CPT/HCPCS: 36415; 80048; 85025; 85651; 86140

== ENCOUNTER 2024-04-20 19:37 | Outpatient (CLI) | payer MEDICARE, OTHER | END 2024-04-20 19:38 | disposition short-term general hospital (02) | LOC: EMS 19:37 | DX: S79.911A Unspecified injury of right hip, initial encounter (principal); M25.561 Pain in right knee; R10.31 Right lower quadrant pain; W18.30XA Fall on same level, unspecified, initial encounter; Y92.009 Unspecified place in unspecified non-institutional (private) residence as the place of occurrence of the external cause | CPT/HCPCS: A0425; A0427 ==

== ENCOUNTER 2024-04-30 03:49 | Outpatient (CLI) | payer MEDICARE, OTHER | END 2024-04-30 23:59 | disposition critical access hospital (66) | LOC: EMS 03:49 | DX: M25.551 Pain in right hip (principal) | CPT/HCPCS: A0425; A0427 ==

== ENCOUNTER 2025-08-05 15:48 | Inpatient (IN) ==
--- NOTE | 2025-08-05 15:54 | ED Physician Documentation ---
History of Present Illness Stated complaint Stated Complaint: FALL Chief complaint Chief Complaint: Trauma Ext History obtained from History obtained from: Patient and EMS Additonal information Additional information: This is an 84-year-old woman who is on Eliquis for atrial fibrillation. She also had a conservatively managed cervical spine fracture in May 2024. She had a mechanical fall at home 4 days ago landing on her right side. She did hit her head but is not having headaches. Today while stepping to the side she developed severe left hip pain felt a pop and is unable to walk or bear weight now. On arrival she has received a total of 150 mcg of fentanyl with minimal pain improvement. She did take her Eliquis today. Meds/Allgy Home Medications Ambulatory Orders Medication Instructions Recorded Confirmed multivitamin (Daily Multi-Vitamin 1 ea PO DAILY 07/04/25 tablet) acetaminophen 500 mg tablet 1,000 mg (2 x 500 mg) PO Q 6H #90 01/31/24 07/04/25 tabs cholecalciferol (vitamin D3) 125 5,000 unit PO DAILY # 90 caps 01/31/24 07/04/25 mcg (5,000 unit) capsule atorvastatin 40 mg tablet (Lipitor) 40 mg PO QDAY 12/1407/04/25 ferrous sulfate 325 mg (65 mg 325 mg PO QDAY 07/26/24 07/04/25 iron) tablet sennosides 8.6 mg tablet (senna) 8.6 mg PO BID 4 07/04/25 apixaban 2.5 mg tablet 2.5 mg PO BID #180 tabs 07/2307/04/25 potassium chloride 10 mEq meq PO 08/01/24 07/04/25 tablet,extended release metoprolol tartrate 25 mg tablet 25 mg PO BID #180 tab s 12/23/24 07/04/25 calcium citrate 200 mg PO BID 12/29/2407/04 diclofenac sodium 1 % topical gel 2 g topical QID 05/1707/04/25 gabapentin 600 mg tablet 600 mg PO TID 12/29/2407/04 cyclobenzaprine 10 mg tablet 10 mg PO TID #90 tabs 07/04/25 prednisone 10 mg tablet 10 mg PO QDAY #30 tabs 01/0507/04/25 alendronate 70 mg tablet 70 mg PO SA 90 days #12 tabs 05/02/25 07/04/25 furosemide 20 mg tablet See Rx Instructions .Route 0 05/17/25 07/04/25 .COMPLEX #30 tabs oxycodone 5 mg tablet 5 mg PO BID PRN Severe 07/0407/04/25 Breakthrough pain(8-10) #56 tabs pramipexole 0.125 mg tablet 0.125 mg PO QPM Restless l eg 07/04/25 07/04/25 syndrome #90 tabs Allergies Allergies Allergy/AdvReac Type Severity Reaction Status Date / Time Penicillins Allergy Mild Rash Verified 05/25/25 14:33 Tetracyclines Allergy Mild Rash Verified 05/25/25 14:33 ropinirole (From Requip) Allergy Unknown Verified 05/25/25 14:33 PFS Active Problems All Active Problems (Updated 08/05/25 @ 16:27 by Willi Celaya MD) Anticoagulated (Acute) Subcapital fracture of left hip (Acute) Low back pain associated with a spinal disorder other than radiculopathy or spinal stenosis (Acute) Abdominal discomfort in left lower quadrant (Acute) Encounter for medication refill (Acute) Left inguinal hernia (Acute) Lower extremity weakness (Acute) Dyspnea on exertion (Acute) Chronic pain (Chronic) Post menopausal problems (Acute) Hip pain, left (Acute) Iron (Fe) deficiency anemia (Acute) Muscle spasm (Acute) Peripheral edema (Acute) Neuropathy (Acute ~03/09/25) Dorsalgia of cervicothoracic region (Acute) Radiculitis, cervical (Acute) Headache (Acute) Cervical spine fracture (Acute) Osteoporosis (Acute) Atrial fibrillation (Acute) Disorder of iron metabolism, unspecified (Acute) GERD (gastroesophageal reflux disease) (Acute) Restless legs syndrome (Acute) Post-traumatic headache, not intractable (Acute) Medical History Medical History (Updated 08/05/25 @ 16:27 by Willi Celaya MD) Back pain with history of spinal surgery Esophageal dysmotility Hyponatremia Constipation Anemia Dizziness Dyspnea Chest pain Hip fracture Surgical History Surgical History (Updated 06/04/25 @ 07:27 by Dee Brown DO) History of spinal surgery (~2012) scoliosis surgery History of total right knee replacement Closed right hip fracture History of fractures and recent surgeries - Right hip replacement on May 2024 - Patient fell and she reports initially had a hairline fracture that worsened when sent home - Had multiple hospitalizations in March and April - Initially had plates and screws placed, which failed, then had complete hip replacement - Currently using a walker for mobility Hx of repair of right rotator cuff Hx of repair of left rotator cuff History of bilateral cataract extraction History of partial hysterectomy Hx of right breast biopsy History of tonsillectomy History of reverse total replacement of right shoulder joint (~02/28/18) History of total left knee replacement (~06/11/23) Family History Family History Mother CVA (cerebral vascular accident) Father Alzheimers disease Maternal grandfather Diabetes Paternal grandfather Diabetes Social History Social History (Updated 06/07/25 @ 14:36 by Mahi Lobato MA) Smoking Status: Never smoker Second hand tobacco smoke exposure: No Do you dip or chew tobacco?: No Do you vape?: No Patient requests smoking cessation consult: No Initiate information on smoking cessation: No Living arrangement: At home (with her who has disability related to CVA) Marital Status: Living Condition: With spouse/s.o. 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: Yes Known occupational exposures/hazards (Current/Previous): Asbestos, Service: No Are you following a diet prescribed by a doctor: No Are you following a special diet: Yes Special Diet Details: Leafy greens, Fresh produce POLST Patient has POLST: No Exam Exam Vital Signs: Vital Signs x48h Temp Pulse Resp BP Pulse Ox 08/05/25 15:50 36.6 C 107 H 18 139/88 H 95 Constitutional normal general appearance and no apparent distress Eyes PERRL Neck/C-Spine cervical spine nontender Respiratory breath sounds equal bilaterally, normal respiratory effort and clear to auscultation bilaterally Cardiovascular Irregularly irregular without murmur Gastrointestinal abdomen soft to palpation and nontender to palpation Extremities Left hip is shortened and she has severe pain over the hip and with internal and external rotation of the leg. Good pedal pulses and sensation. Neurology GCS 15 Results Vitals Vitals: Vital Signs - 24 hr 08/05/25 15:50 08/05/25 15:59 Temperature 36.6 C Temperature Source Temporal Artery Scan Pulse Rate 107 H Respiratory Rate 18 Blood Pressure 139/88 H O2 Saturation 95 O2 Source Room air Pain Intensity 6 8 Oxygen O2 Source Room air EKG (time done) 1628: EKG releavant findings:: EKG personally interpreted by author of this note. Relevant findings are: Sinus rhythm with frequent PACs, LAFB and low voltage. 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 PD Medical Decision Making ED course ED course: 84-year-old woman on Eliquis fell 4 days ago but had increased pain today. Independent interpretation of CT pelvis demonstrating a subcapital fracture with displacement on the left. Made contact with our orthopedist, Dr. Akhtar, she will need some time to washout the Eliquis before fixation. Call to the hospitalist, Dr. Rosa at 4:26 PM for admission. Also called Bala Mason CRNA for block for pain control. Regarding the cervical spine, I discussed this with the patient. She has a known fracture of the cervical spine sustained in May 2024. 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 Discharge Plan Discharge Patient Disposition: [facility] DC/Xfer Condition: Stable Clinical Impression: Subcapital fracture of left hip, Anticoagulated Prescriptions: No Action metoprolol tartrate 25 mg tablet 25 mg PO BID Qty: 180 3RF cyclobenzaprine 10 mg tablet 10 mg PO TID Qty: 90 2RF prednisone 10 mg tablet 10 mg PO QDAY Qty: 30 3RF furosemide 20 mg tablet See Rx Instructions .ROUTE .COMPLEX Qty: 30 3RF Dose Instruction: TAKE ONE TABLET BY MOUTH ONE TIME DAILY Rx Instructions: TAKE ONE TABLET BY MOUTH ONE TIME DAILY multivitamin [Daily Multi-Vitamin] 1 EACH tablet 1 ea PO DAILY acetaminophen 500 MG tablet 1,000 mg PO Q6H Qty: 90 0RF cholecalciferol (vitamin D3) 5,000 UNIT capsule 5,000 unit PO DAILY Qty: 90 0RF atorvastatin [Lipitor] 40 mg tablet 40 mg PO QDAY sennosides [senna] 8.6 mg tablet 8.6 mg PO BID ferrous sulfate 325 mg (65 mg iron) tablet 325 mg PO QDAY alendronate 70 mg tablet 70 mg PO SA 90 Days Qty: 12 0RF pramipexole 0.125 mg tablet 0.125 mg PO QPM Qty: 90 3RF Rx Instructions: administer 2 - 3 hours before bedtime. Start: 0.125 mg PO qpm for 7 days, then may incr. to 0.25 mg PO qpm oxycodone 5 mg tablet 5 mg PO BID PRN (Reason: Severe Breakthrough pain(8-10)) Qty: 56 0RF potassium chloride 10 mEq tablet extended release PO apixaban 2.5 mg tablet 2.5 mg PO BID Qty: 180 2RF gabapentin 600 mg tablet 600 mg PO TID diclofenac sodium 1 % gel 2 g topical QID Rx Instructions: apply to single elbow, wrist or hand; for hand includes palm/fingers/back of hand calcium citrate 200 mg (950 mg) tablet 200 mg PO BID Print Language: Guyanese
[2025-08-05] MEDS: HYDROmorphone 1 MG/ML CARPUJECT IVP STA ×2 (15:59→17:55)
--- NOTE | 2025-08-05 16:26 | CT Report ---
PROCEDURE: CT Head WO INDICATIONS: Head injury, left hip injury TECHNIQUE: CT of the head was performed, without intravenous contrast. Reformats: Coronal and sagittal. For radiation dose reduction, the following was used: automated exposure control, adjustment of mA and/or kV according to patient size. COMPARISON: Head CT on 12/23/2024 FINDINGS: Image quality: Diagnostic. CSF spaces: Basal cisterns are patent. No extra-axial fluid collections. Ventricles are normal in size and shape. Brain: No midline shift. No intracranial mass effect or hemorrhage. Boyer- white matter interface is normal. Age appropriate volume loss and periventricular white matter hypoattenuation, likely chronic ischemic change. Skull and face: Calvarium and visualized facial bones are intact, without suspicious lesions. Sinuses: Visualized sinuses and mastoids are clear. IMPRESSION: No acute intracranial pathology. Reviewed by: Miguel Hancock MD on 08/05/2025 3:23 PM [facility] Approved by: Miguel Hancock MD on 08/05/2025 3:23 PM [facility] Station ID: [id number]
--- NOTE | 2025-08-05 16:35 | HISTORY & PHYSICAL EXAMINATION ---
Chief Complaint Chief Complaint Chief Complaint: Left Hip Pain History of Present Illness Admitted From Admitted From:: ED History Obtained From Records Reviewed: [facility] History obtained from: EMR, Patient, ED Provider History of Present Illness HPI Comment/Other: The patient is an 84-year-old female with a past medical history notable for restless leg, osteoporosis, atrial fibrillation on DOAC, iron deficiency anemia, inguinal hernia, abdominal pain with loose stools, and multiple previous fractures who presents with a subacute left femoral neck subcapital fracture with minimal impaction. The patient is fairly wondering in her history, but basically tells me that she fell 4 days prior to this admission. She was using a walker. She is not sure why she fell. Did not feel lightheaded or dizzy prior to her fall. She lost her footing and fell despite use of her walker. This happens to her sometimes. She fell predominantly on her right side and struck her head. She did not have any immediate pain and therefore decided not to seek any care. She did not lose consciousness. On the day of admission, she began having worsened pain in her left leg and was unable to ambulate on this leg. She presented to the ED and with the story received a head CT, C-spine CT and pelvis CT the latter of which revealed a left femoral neck subcapital fracture with minimal impaction. She has a right proximal femoral reconstruction without complication. Her C-spine CT is also abnormal as dictated in the assessment and plan below. CT head was unremarkable. Interestingly the patient also had a very similar fall in January 2024. At that same time she was using her walker, fell and landed on her right side. She had immediate concern about pain to her back and presented to the ED. Her scans were negative at that time. 4 days later, similar to this presentation, she had pain in her right hip and was unable to ambulate. She returned was found to have a displaced subcapital right hip fracture. She had surgery performed by Dr. Sheffield with open reduction and multiple cannulated screws to fix her fracture. She did rehab following this. She had a subsequent fall in the interim at some point that resulted in C-spine injury, and was managed conservatively with neurosurgery. I was able to find a neurology note from June 21 of this year at [facility] where she saw neurology for posttraumatic headache. There they reiterate that she had periprosthetic fracture of the proximal end of the femur in May 2024, and a closed displaced posterior arch fracture for cervical vertebrae, sacral fracture. For cervical fracture she was treated conservatively with c-collar for 3 months. Since then she had severe headaches for about 6 months which have improved but were persistent up until May. In the ED, she was noted to have imaging findings as above. She had significant pain in her left leg and there was an attempt for a nerve block in the ED. On my exam she gets to room 2307, the nerve block does not seem to have been effective. She is still having significant pain in her leg. She has been unable to ambulate. She denies any lightheadedness or dizziness. Denies nausea or vomiting. Denies chest pain or dyspnea. Meds/Allgy Home Medications Ambulatory Orders Medication Instructions Recorded Confirmed multivitamin (Daily Multi-Vitamin 1 ea PO DAILY 08/05/25 tablet) acetaminophen 500 mg tablet 1,000 mg (2 x 500 mg) PO Q 6H #90 01/31/24 08/05/25 tabs cholecalciferol (vitamin D3) 125 5,000 unit PO DAILY # 90 caps 01/31/24 08/05/25 mcg (5,000 unit) capsule atorvastatin 40 mg tablet (Lipitor) 40 mg PO QDAY 12/1408/05/25 ferrous sulfate 325 mg (65 mg 325 mg PO QDAY 07/26/24 08/05/25 iron) tablet sennosides 8.6 mg tablet (senna) 8.6 mg PO BID 4 08/05/25 apixaban 2.5 mg tablet 2.5 mg PO BID #180 tabs 07/2308/05/25 potassium chloride 10 mEq 10 meq PO DAILY 08/01/24 tablet,extended release metoprolol tartrate 25 mg tablet 25 mg PO BID #180 tab s 12/23/24 08/05/25 calcium citrate 200 mg PO BID 12/29/2408/05 diclofenac sodium 1 % topical gel 2 g topical QID 05/1708/05/25 gabapentin 600 mg tablet 600 mg PO TID 12/29/2408/05 alendronate 70 mg tablet 70 mg PO SA 90 days #12 tabs 05/02/25 08/05/25 oxycodone 5 mg tablet 5 mg PO BID PRN Severe 07/0408/05/25 Breakthrough pain(8-10) #56 tabs pramipexole 0.125 mg tablet 0.125 mg PO QPM Restless l eg 07/04/25 08/05/25 syndrome #90 tabs Allergies Allergies Allergy/AdvReac Type Severity Reaction Status Date / Time Penicillins Allergy Mild Rash Verified 08/05/25 16:53 Tetracyclines Allergy Mild Rash Verified 08/05/25 16:53 ropinirole (From Requip) Allergy Unknown Verified 08/05/25 16:53 [facility] Active Problems All Active Problems (Updated 08/05/25 @ 16:27 by Willi Celaya MD) Anticoagulated (Acute) Subcapital fracture of left hip (Acute) Low back pain associated with a spinal disorder other than radiculopathy or spinal stenosis (Acute) Abdominal discomfort in left lower quadrant (Acute) Encounter for medication refill (Acute) Left inguinal hernia (Acute) Lower extremity weakness (Acute) Dyspnea on exertion (Acute) Chronic pain (Chronic) Post menopausal problems (Acute) Hip pain, left (Acute) Iron (Fe) deficiency anemia (Acute) Muscle spasm (Acute) Peripheral edema (Acute) Neuropathy (Acute ~03/09/25) Dorsalgia of cervicothoracic region (Acute) Radiculitis, cervical (Acute) Headache (Acute) Cervical spine fracture (Acute) Osteoporosis (Acute) Atrial fibrillation (Acute) Disorder of iron metabolism, unspecified (Acute) GERD (gastroesophageal reflux disease) (Acute) Restless legs syndrome (Acute) Post-traumatic headache, not intractable (Acute) Medical History Medical History (Updated 08/05/25 @ 16:27 by Willi Celaya MD) Back pain with history of spinal surgery Esophageal dysmotility Hyponatremia Constipation Anemia Dizziness Dyspnea Chest pain Hip fracture Surgical History Surgical History (Updated 06/04/25 @ 07:27 by Dee Brown DO) History of spinal surgery (~2012) scoliosis surgery History of total right knee replacement Closed right hip fracture History of fractures and recent surgeries - Right hip replacement on May 2024 - Patient fell and she reports initially had a hairline fracture that worsened when sent home - Had multiple hospitalizations in March and April - Initially had plates and screws placed, which failed, then had complete hip replacement - Currently using a walker for mobility Hx of repair of right rotator cuff Hx of repair of left rotator cuff History of bilateral cataract extraction History of partial hysterectomy Hx of right breast biopsy History of tonsillectomy History of reverse total replacement of right shoulder joint (~02/28/18) History of total left knee replacement (~06/11/23) Family History Family History Mother CVA (cerebral vascular accident) Father Alzheimers disease Maternal grandfather Diabetes Paternal grandfather Diabetes Social History Social History (Updated 08/05/25 @ 16:55 by Brandan Martin, RN, BSN) Smoking Status: Never smoker Second hand tobacco smoke exposure: No Do you dip or chew tobacco?: No Do you vape?: No Patient requests smoking cessation consult: No Initiate information on smoking cessation: No Living arrangement: At home (with her who has disability related to CVA) Marital Status: Living Condition: With spouse/s.o. 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 Winces in pain HEENT: NC/AT, normal appearance of external ears and nose. Hearing baseline. Cardiac: Irregular irregular rhythm. Rate controlled. Generally euvolemic on exam. Palpable peripheral pulses. Pulm: Lungs CTA bilaterally, no cough, no wheezes. No adventitial lung sounds, normal effort on room air. Abdomen: Soft, nontender, nondistended. No rebound or guarding Extremities: Unable to move left lower extremity due to pain. Foreshortened. Neurovascular intact distally. Warm and perfused extremities. No malady of the upper extremities. Neuro: Face symmetric, CN II through XII intact grossly. No focal neurologic deficits. Psych: Mood euthymic with congruent affect. Tangential speech. Wandering historian. Conclusion/Plan Problem List (1) Subcapital fracture of left hip: Plan: Patient with mechanical ground-level fall happening 4 days prior to admission. She reports that she landed predominantly on her right side and struck her head. She did not have any immediate injury. She later finds that she is having difficulty walking on her left lower extremity. Is found on CT to have a left femoral neck subcapital fracture that is impacted. There is an attempt for a nerve block in the ED, but she is still having significant pain in her left lower extremity. Given her anticoagulation in the setting of her atrial fibrillation, likely some delay for surgery. - Discussed with ED provider, admitted the patient to inpatient status, she will be here for at least 2 midnights - Orthopedics has been notified, consulted - Plan for surgery, suspect 08/07 - Continue to hold DOAC - Multimodal pain management o Scheduled Tylenol 1 g 3 times daily o Oxycodone 5 to 10 mg every 4 hours as needed o Continue home gabapentin 600 mg p.o. 3 times daily o Parenteral hydromorphone 0.5 mg every 2 hours as needed available for breakthrough o Topical lidocaine patch o Heat pad - Will monitor blood counts. - SQ heparin for DVT prophylaxis preoperatively - PT evaluation following surgery (2) Chronic pain: Plan: Patient with history of chronic pain on her chart. She is unable to tell me exactly where she typically hurts. She says she hurts in her hips and knees, her C-spine, chronic headaches. She also has a documented history of abdominal pain with diarrhea. She endorses that pain too on prompting. She is on scheduled Tylenol already outpatient. She takes 5 mg oxycodone twice daily as needed for breakthrough pain at home. She says she takes this most days. Patient has been on prednisone 10 mg daily for cervical spine pain. This is likely not effective in the postacute phase. This actually may delay healing. Opting not to continue. - Discontinue prednisone on discharge - Will monitor for symptoms of adrenal insufficiency, unlikely but possible on doses of 10 mg going for 6 months. - Multimodal pain relief as above - Continue home scheduled sennosides Qualifiers: Chronic pain type: other chronic pain Qualified Code(s): G89.29 - Other chronic pain (3) Iron (Fe) deficiency anemia: Plan: Patient has a history of iron deficiency anemia. Her hemoglobin on arrival is 11.1. This is similar to her baseline which tends to be around 11. No signs of active bleeding. - Will continue monitor CBC perioperatively. - Continue home iron supplement (4) Cervical spine fracture: Plan: Patient is found on imaging here to have progressive abnormality of alignment of C1 and C2 with chronic nonunited fractures and transverse process of C2. In reviewing the ED documentation, they did discuss with the patient, and she stated that this was stable. Of note the radiologist compared to a study from December of this year. Her initial injury was in May 2024. She wore a c-collar for 3 months following. It was read as being unchanged from 2023 when surveilled in December 2024. Specifically the study from 08/05/2025 reads that she has had "progressive posterior subluxation of the clivus relative to the atlas with progressive narrowing of the craniocervical junction." That being said she is neurovascularly intact. She has good sensation and can move with limitations of her pain. She moves both her upper extremities equally. She has no deficits. No autonomic instability. She has not noticed any change in her persistent falls which have been going on for over a year. - I will reach out to her neurosurgeon on 08/06 - Continue to clinically monitor neuroexam. Qualifiers: Cervical vertebra fracture level: C2 Encounter type: initial encounter Fracture alignment: displaced Fracture morphology: other fracture Fracture type: closed Qualified Code(s): S12.190A - Other displaced fracture of second cervical vertebra, initial encounter for closed fracture (5) Osteoporosis: Plan: Patient with known history of osteoporosis. She is on alendronate 70 mg p.o. She takes her dose every Wednesday. She also takes vitamin D 5000 units p.o. daily. 400 mg of elemental calcium daily in the form of calcium citrate - Likely be discharged prior to her next alendronate dose, resume on discharge - Continue calcium and vitamin D Qualifiers: Encounter type: initial encounter Osteoporosis type: age-related P resence of current pathological fracture: with current pathological fracture Q ualified Code(s): M80.00XA - Age-related osteoporosis with current pathological fracture, unspecified site, initial encounter for fracture (6) Atrial fibrillation: Plan: Patient is currently rate controlled. She is anticoagulated with DOAC prior to this hospitalization. She is in persistent atrial fibrillation. Home medications include metoprolol tartrate 25 mg twice daily as well as Eliquis 2.5 mg daily. Unclear why she is on 2.5 mg Eliquis. She is greater than 80 years old, but her weight is not less than 60 kg. Her serum creatinine does also not qualify her for renal dosing. - Would propose transitioning her to metoprolol succinate 50 mg daily, this can happen after surgery - Postoperatively when safe to do so we will resume 5 mg Eliquis twice daily (7) Restless legs syndrome: Plan: Longstanding history of restless leg syndrome. She reports that her home medication is recently changed. She was on half tablet of Mirapex up until May and then was transition up to 1 full tablet of Mirapex. Of note the 2024 [place] [employer] guidelines now recommend against the standard use of Mirapex for RLS. The predominant reason these are no longer recommended is because they exhibit augmentation. This may be demonstrated by her recent dose increase. Gabapentinoids or low-dose opiates are preferential for treatment of RLS. - At this time we will continue her Mirapex 0.25mg qhs - Will recommend increase in gabapentin dose on discharge Plan Plan by problem as above. I spent a total of 71 minutes in the care of this patient today. This time was spent reviewing labs, vital signs, imaging, interviewing and examining the patient, and discussing plan of care with them and their other care providers. Patient is being seen for acute illness or injury that poses threat to life or bodily function. Discussed her case with ED provider and I made decision to admit the patient to inpatient service on the medical surgical floor. [id number]. Lab Results 08/05/25 16:50 08/05/25 16:50
--- NOTE | 2025-08-05 16:37 | CT Report ---
PROCEDURE: CT Cervical Spine WO INDICATIONS: Head injury, left hip injury TECHNIQUE: Noncontrast images acquired from the skull base to the T4 level. Sagittal and coronal reformats were then constructed. For radiation dose reduction, the following was used: automated exposure control, adjustment of mA and/or kV according to patient size. COMPARISON: CT cervical spine on 12/23/2024 FINDINGS: Bones: Progressive abnormal alignment of C1 and C2 with chronic, nonunited fractures of the transverse process of C2 and advanced remodeling of the facet joints. This results in progressive chronic narrowing of the craniocervical junction and chronic posterior subluxation of the clivus relative to the atlas, measuring 1.6 cm on this exam, previously 1.3 cm and December 2024. Erosive pannus of the craniocervical junction with chronic fragmentation and attritional remodeling of the dens. This is a chronic change dating back to May 2024. Degenerated disc osteophyte complexes at the C5-6 and C6-7. Chronic degenerative 3 mm anterior listhesis of C4 on C5. Soft tissues: Prevertebral soft tissues are normal in thickness. No paravertebral hematomas. No apical pneumothoraxes. IMPRESSION: 1. Progressive abnormal alignment of C1 and C2 with chronic, nonunited fractures of the transverse process of C2. This results in progressive posterior subluxation of the clivus relative to the atlas with progressive narrowing of the craniocervical junction. Recommend neurosurgical consultation and co rrelation with neurological exam. 2. No acute fracture. Reviewed by: Miguel Hancock MD on 08/05/2025 3:33 PM [facility] Approved by: Miguel Hancock MD on 08/05/2025 3:33 PM [facility] Station ID: [id number]
--- NOTE | 2025-08-05 16:40 | CT Report ---
PROCEDURE: CT Pelvis WO INDICATIONS: Head injury, left hip injury TECHNIQUE: Noncontrast CT was obtained through the bony pelvis, with coronal and sagittal reformatting. For radiation dose reduction, the following was used: automated exposure control, adjustment of mA and/or kV according to patient size. COMPARISON: CT angio pelvis 12/23/2024 FINDINGS: Image quality: Excellent. Bones: Changes of long segment lumbar spine to pelvic spinal instrumented fusion no visualized hardware loosening. Changes of right proximal femoral reconstruction with endoprosthesis. No hardware loosening or failure. Left femoral neck subcapital fracture with minimal marginal impaction along the frac ture and superior displacement of the femoral neck fracture fragment into the femoral head. Severe osteoarthritis of the left hip. Mild degenerative proliferation of the pubic symphysis. Soft tissues: Bowel and fat-containing left inguinal hernia. Mild stool burden in the large bowel. No findings of bowel obstruction. The left hip girdle is unremarkable. No focal soft tissue contusion is seen in the left hip soft tissues. IMPRESSION: 1. Left femoral neck subcapital fracture with minimal impaction. 2. Changes of right proximal femoral reconstruction without complication. 3. Bowel and fat-containing left inguinal hernia without findings of obstruction. Reviewed by: Miguel Hancock MD on 08/05/2025 3:37 PM [facility] Approved by: Miguel Hancock MD on 08/05/2025 3:37 PM [facility] Station ID: [id number]
[2025-08-05] MEDS ORDERED: ROPIVACAINE 0.5% PF 20 ML VIAL ONE ×2 (16:51→17:36)
[2025-08-05] MEDS ORDERED: DEXAMETHASONE 10 MG/ML VIAL ONE (16:51)
[2025-08-05] MEDS ORDERED: SODIUM CHLORIDE 0.9% 10 ML VIAL ONE (16:51)
[2025-08-05 16:56] LABS: HCT - HEMATOCRIT 35.8 % (37.0-47.0); HGB - HEMOGLOBIN 11.1 g/dL (12.0-16.0); MEAN PLATELET VOLUME 9.7 fL (7.9-10.8); NRBC ABSOLUTE COUNT (AUTO) 0.00 x10^3/uL; NUCLEATED RED BLOOD CELLS AUTO 0.0 /100WBC; PLT - PLATELET COUNT 278 10^3/uL (130-450); RED CELL DISTRIBUTION WIDTH 13.2 % (12.0-15.0)
[2025-08-05 17:05] LABS: INR 1.0 (0.8-1.2); PT - PROTHROMBIN TIME 11.5 secs (9.9-12.6)
[2025-08-05 17:10] LABS: ALT ALANINE AMINOTRANSFERASE 11.0 IU/L (10-60); AST ASPARTATE AMINOTRANSFERASE 16.0 IU/L (10-42); BUN - BLOOD UREA NITROGEN 19.0 mg/dL (6-20); CARBON DIOXIDE - CO2 26.0 mmol/L (21-32); CREATININE 0.9 mg/dL (0.6-1.3); GFR - MDRD 60.0 (>89)
--- NOTE | 2025-08-05 17:55 | ANESTHESIA PROCEDURE NOTE ---
Diagnosis Diagnosis: L femoral neck fx Procedure Procedure: L Suprainguinal Fascia Illiac Block/FNB Consent for Procedure(s) Verified and Reviewed: Yes Vitals Height and Weight: Height 5 ft Body Mass Index 26.7 Vital Signs: Temp Pulse Resp BP Pulse Ox 36.6 C 107 H 18 139/88 H 95 08/05/25 15:50 08/05/25 15:50 08/05/25 15:50 08/05/25 15:50 08/05/25 15:50 Allergies Allergies: Allergies Penicillins Allergy (Mild, Verified 08/05/25 16:53) Rash Tetracyclines Allergy (Mild, Verified 08/05/25 16:53) Rash ropinirole (From Requip) Allergy (Verified 08/05/25 16:53) Unknown CAN NOT TAKE THE EXTENDED RELEASE REQUIP Requesting Provider Requesting Provider: MD Yomi Location Location: ED 9 ASA ASA classification: 3-Severe systemic disease Is this case an emergency?: No Monitoring Anes. Monitoring and Equipment: Non-invasive BP, Pulse oximetery and Sterile prep and drape Anes. Procedure Start Time: 17:16 Anes. Procedure Stop Time: 17:22 Procedure Notes Procedure Notes: Procedure explained, consent obtained. Brandan MELLO at bedside for assist. Sterile prep to L inguinal crease. 20cc 0.5% Ropivacaine with decadron placed at FIplane. 10cc 0.5% Ropivacaine placed at femoral nerve mid inguinal crease. Pt tolerated the procedure with minimal compliaint.
[2025-08-05] MEDS ORDERED: SODIUM CHLORIDE FLUSH 0.9% 10 ML SYRINGE IVP PRN (18:06)
[2025-08-05] MEDS ORDERED: ONDANSETRON ODT 4 MG TABLET TL PRN (18:06)
[2025-08-05] MEDS ORDERED: ONDANSETRON 4 MG/2 ML VIAL IVP PRN (18:06)
[2025-08-05] MEDS: ACETAMINOPHEN 500 MG TABLET PO SCH (18:34)
[2025-08-05] MEDS: SODIUM CHLORIDE FLUSH 0.9% 10 ML SYRINGE IVP SCH (18:36)
[2025-08-05] MEDS: oxyCODONE 5 MG TABLET PO PRN (18:36)
[2025-08-05] MEDS: FERROUS SULFATE 325 MG TABLET PO SCH (20:33)
[2025-08-05] MEDS: METOPROLOL TARTRATE 25 MG TABLET PO SCH (20:33)
[2025-08-05] MEDS: SENNA 8.6 MG TABLET PO SCH (20:36)
[2025-08-05] MEDS: PRAMIPEXOLE 0.25 MG TABLET PO SCH (20:36)
[2025-08-05] MEDS: HEPARIN 5,000 UNIT/ML VIAL SUBQ SCH (20:39)
[2025-08-05] MEDS: CALCIUM CARBONATE CHEW 500 MG TABLET PO SCH (21:04)
[2025-08-05] MEDS: GABAPENTIN 300 MG CAPSULE PO SCH (22:33)
--- NOTE | 2025-08-06 02:51 | PROVIDER PROGRESS NOTE ---
Hospitalist Cross-cover Note Cross-Cover Note Cross-Cover Note: per rn " Pt. admitted yesterday for left hip fracture and is c/o hip pain. Pt. received Oxycodone 5 mg around midnight and also on scheduled Tylenol and Gabapentin. Pt. states that she wants to be able to relax and is asking for Flexeril for muscle spasm which is not ordered. I need order for Flexeril please. Thanks" flexeril x 1 dose
[2025-08-06] MEDS: CYCLOBENZAPRINE 10 MG TABLET PO STA (02:58)
[2025-08-06 04:43] LABS: HCT - HEMATOCRIT 33.7 % (37.0-47.0); HGB - HEMOGLOBIN 10.5 g/dL (12.0-16.0); MEAN PLATELET VOLUME 9.7 fL (7.9-10.8); NRBC ABSOLUTE COUNT (AUTO) 0.00 x10^3/uL; NUCLEATED RED BLOOD CELLS AUTO 0.0 /100WBC; PLT - PLATELET COUNT 266 10^3/uL (130-450); RED CELL DISTRIBUTION WIDTH 13.1 % (12.0-15.0)
[2025-08-06 05:02] LABS: BUN - BLOOD UREA NITROGEN 17.0 mg/dL (6-20); CARBON DIOXIDE - CO2 26.0 mmol/L (21-32); CREATININE 0.8 mg/dL (0.6-1.3); GFR - MDRD 69.0 (>89)
--- NOTE | 2025-08-06 07:20 | CONSULTATION NOTE ---
Referring Provider Name of Referring Provider:: Moe Consult Date: 08/04/25 Chief Complaint Chief Complaint Chief Complaint: Left femoral neck subcapital fracture with minimal impact History of Present Illness History of Present Illness HPI Comment/Other: Consulted 08/05/2025 on this 84-year-old female who is status post fall. Patient has a history of right total hip. She states she fell and hit her head approximately 4 days prior to admission. She had some pain but was able to continue with ambulation. Yesterday she took a wrong step and fractured her femoral neck. [facility] Active Problems All Active Problems Anticoagulated (Acute) Subcapital fracture of left hip (Acute) Low back pain associated with a spinal disorder other than radiculopathy or spinal stenosis (Acute) Abdominal discomfort in left lower quadrant (Acute) Encounter for medication refill (Acute) Left inguinal hernia (Acute) Lower extremity weakness (Acute) Dyspnea on exertion (Acute) Chronic pain (Chronic) Post menopausal problems (Acute) Hip pain, left (Acute) Iron (Fe) deficiency anemia (Acute) Muscle spasm (Acute) Peripheral edema (Acute) Neuropathy (Acute ~03/09/25) Dorsalgia of cervicothoracic region (Acute) Radiculitis, cervical (Acute) Headache (Acute) Cervical spine fracture (Acute) Osteoporosis (Acute) Atrial fibrillation (Acute) Disorder of iron metabolism, unspecified (Acute) GERD (gastroesophageal reflux disease) (Acute) Restless legs syndrome (Acute) Post-traumatic headache, not intractable (Acute) Medical History Medical History Back pain with history of spinal surgery Esophageal dysmotility Hyponatremia Constipation Anemia Dizziness Dyspnea Chest pain Hip fracture Surgical History Surgical History History of spinal surgery (~2012) scoliosis surgery History of total right knee replacement Closed right hip fracture History of fractures and recent surgeries - Right hip replacement on May 2024 - Patient fell and she reports initially had a hairline fracture that worsened when sent home - Had multiple hospitalizations in March and April - Initially had plates and screws placed, which failed, then had complete hip replacement - Currently using a walker for mobility Hx of repair of right rotator cuff Hx of repair of left rotator cuff History of bilateral cataract extraction History of partial hysterectomy Hx of right breast biopsy History of tonsillectomy History of reverse total replacement of right shoulder joint (~02/28/18) History of total left knee replacement (~06/11/23) Family History Family History Mother CVA (cerebral vascular accident) Father Alzheimers disease Maternal grandfather Diabetes Paternal grandfather Diabetes Social History Social History Smoking Status: Never smoker Second hand tobacco smoke exposure: No Do you dip or chew tobacco?: No Do you vape?: Yes Patient requests smoking cessation consult: No Initiate information on smoking cessation: No Living arrangement: At home (with her who has disability related to CVA) Marital Status: Living Condition: With spouse/s.o. 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: Yes Known occupational exposures/hazards (Current/Previous): Asbestos, Service: No Are you following a diet prescribed by a doctor: No Are you following a special diet: Yes Special Diet Details: Leafy greens, Fresh produce POLST Patient has POLST: No Past History Medical History Back pain with history of spinal surgery Esophageal dysmotility Hyponatremia Constipation Anemia Dizziness Dyspnea Chest pain Hip fracture Surgical History History of spinal surgery (~2012) scoliosis surgery History of total right knee replacement Closed right hip fracture History of fractures and recent surgeries - Right hip replacement on May 2024 - Patient fell and she reports initially had a hairline fracture that worsened when sent home - Had multiple hospitalizations in March and April - Initially had plates and screws placed, which failed, then had complete hip replacement - Currently using a walker for mobility Hx of repair of right rotator cuff Hx of repair of left rotator cuff History of bilateral cataract extraction History of partial hysterectomy Hx of right breast biopsy History of tonsillectomy History of reverse total replacement of right shoulder joint (~02/28/18) History of total left knee replacement (~06/11/23) Meds/Allgy Home Medications Ambulatory Orders Medication Instructions Recorded Confirmed multivitamin (Daily Multi-Vitamin 1 ea PO DAILY 08/05/25 tablet) acetaminophen 500 mg tablet 1,000 mg (2 x 500 mg) PO Q 6H #90 01/31/24 08/05/25 tabs cholecalciferol (vitamin D3) 125 5,000 unit PO DAILY # 90 caps 01/31/24 08/05/25 mcg (5,000 unit) capsule atorvastatin 40 mg tablet (Lipitor) 40 mg PO QDAY 12/1408/05/25 ferrous sulfate 325 mg (65 mg 325 mg PO QDAY 07/26/24 08/05/25 iron) tablet sennosides 8.6 mg tablet (senna) 8.6 mg PO BID 4 08/05/25 apixaban 2.5 mg tablet 2.5 mg PO BID #180 tabs 07/2308/05/25 potassium chloride 10 mEq 10 meq PO DAILY 08/01/24 tablet,extended release metoprolol tartrate 25 mg tablet 25 mg PO BID #180 tab s 12/23/24 08/05/25 calcium citrate 200 mg PO BID 12/29/2408/05 diclofenac sodium 1 % topical gel 2 g topical QID 05/1708/05/25 gabapentin 600 mg tablet 600 mg PO TID 12/29/2408/05 alendronate 70 mg tablet 70 mg PO SA 90 days #12 tabs 05/02/25 08/05/25 oxycodone 5 mg tablet 5 mg PO BID PRN Severe 07/0408/05/25 Breakthrough pain(8-10) #56 tabs pramipexole 0.125 mg tablet 0.125 mg PO QPM Restless l eg 07/04/25 08/05/25 syndrome #90 tabs Allergies Allergies Allergy/AdvReac Type Severity Reaction Status Date / Time Penicillins Allergy Mild Rash Verified 08/05/25 16:53 Tetracyclines Allergy Mild Rash Verified 08/05/25 16:53 ropinirole (From Requip) Allergy Unknown Verified 08/05/25 16:53 Results Lab Results Lab results reviewed: Yes 08/06/25 04:33 08/06/25 04:33 Other Lab Results: Lab Results x24hrs 08/06/25 08/05/25 Range/Units 04:33 16:50 WBC 4.8 9.0 (4.8-10.8) x10^3/uL RBC 3.61 L 3.78 L (4.20-5.40) 10^6/uL Hgb 10.5 L 11.1 L (12.0-16.0) g/dL Hct 33.7 L 35.8 L (37.0-47.0) % MCV 93.4 94.7 (81.0-99.0) fL MCH 29.1 29.4 (27.0-31.0) pg MCHC 31.2 L 31.0 L (32.0-36.0) g/dL RDW 13.1 13.2 (12.0-15.0) % Plt Count 266 278 (130-450) 10^3/uL MPV 9.7 9.7 (7.9-10.8) fL Neut # (Auto) 3.9 6.6 (1.5-6.6) 10^3/uL Lymph # (Auto) 0.7 L 1.2 L (1.5-3.5) 10^3/uL [place] # (Auto) 0.1 0.8 (0.0-1.0) 10^3/uL Eos # (Auto) 0.0 0.2 (0.0-0.7) 10^3/uL Baso # (Auto) 0.0 0.1 (0.0-0.1) 10^3/uL Absolute Nucleated RBC 0.00 0.00 x10^3/uL Nucleated RBC % 0.0 0.0 /100WBC PT 11.5 (9.9-12.6) secs INR 1.0 (0.8-1.2) Sodium 133 L 137 (135-145) mmol/L Potassium 4.4 4.3 (3.5-4.5) mmol/L Chloride 101 101 (101-111) mmol/L Carbon Dioxide 26 26 (21-32) mmol/L Anion Gap 6.0 10.0 (6-13) BUN 17 19 (6-20) mg/dL Creatinine 0.8 0.9 (0.6-1.3) mg/dL Estimated GFR (MDRD) 69 L 60 L (>89) Glucose 162 H 97 (74-104) mg/dL Calcium 8.8 9.1 (8.5-10.3) mg/dL Total Bilirubin 0.5 (0.2-1.0) mg/dL AST 16 (10-42) IU/L ALT 11 (10-60) IU/L Alkaline Phosphatase 73 (42-121) IU/L Total Protein 6.9 (6.4-8.9) g/dL Albumin 4.3 (3.2-5.5) g/dL Globulin 2.6 (2.1-4.2) g/dL Albumin/Globulin Ratio 1.7 (1.0-2.2) Diagnostic Imaging Results Diagnostic Imaging Results: positive Prelim report reviewed Diagnostic Imaging Results Comments: CT pelvis 08/05/25: IMPRESSION: 1. Left femoral neck subcapital fracture with minimal impaction. 2. Changes of right proximal femoral reconstruction without complication. 3. Bowel and fat-containing left inguinal hernia without findings of obstruction. Review of Systems Status of ROS: 10 or more systems reviewed and unremarkable except as noted in history and below Exam Exam Vital Signs: Vital Signs x48h Temp Pulse Resp BP Pulse Ox 08/06/25 05:01 36.6 C 72 14 110/63 95 08/06/25 00:38 36.7 C 66 14 98/66 95 General appearance: alert, awake, oriented x 3, well-nourished Fracture: L Subcapital femoral neck fracture Head/Eyes: atraumatic Extremities/Vascular: pedal pulses intact, radial pulses intact Musculoskeletal: Left lower extremity shortened and externally rotated.Moves all other limbs. Neuro/JEWELRY SALES ASSOCIATE: alert, follows commands; NVI Skin: warm, dry, intact, without erythema, warmth, ecchymosis or obvious clinical deformity Psychiatry: normal affect Conclusion/Plan Problem List (1) Subcapital fracture of left hip: Qualifiers: Encounter type: initial encounter Fracture type: closed Qualified Code(s): S72.012A - Unspecified intracapsular fracture of left femur, initial encounter for closed fracture (2) Chronic pain: Qualifiers: Chronic pain type: other chronic pain Qualified Code(s): G89.29 - Other chronic pain (3) Cervical spine fracture: Qualifiers: Cervical vertebra fracture level: C2 Encounter type: initial encounter Fracture alignment: displaced Fracture morphology: other fracture Fracture type: closed Qualified Code(s): S12.190A - Other displaced fracture of second cervical vertebra, initial encounter for closed fracture (4) Osteoporosis: Qualifiers: Encounter type: initial encounter Osteoporosis type: age-related P resence of current pathological fracture: with current pathological fracture Q ualified Code(s): M80.00XA - Age-related osteoporosis with current pathological fracture, unspecified site, initial encounter for fracture Plan Consulted on this 84-year-old female with left subcapital femoral neck fracture. Med management per hospitalist Patient will need to be off Eliquis for 48 to 72 hours. Last dose was the morning of 08/05/2025. Pain control/bowel regimen PT OT: Bedrest pending surgical intervention. SCD RLE DW Dr. Cedillo Lab Results Lab results reviewed: Yes 08/06/25 04:33 08/06/25 04:33 Diagnostic Imaging Results Diagnostic Imaging Results: positive Prelim report reviewed
[2025-08-06] MEDS: MULTIVITAMIN TABLET PO SCH (08:25)
[2025-08-06] MEDS: ATORVASTATIN 40 MG TABLET PO SCH (08:25)
[2025-08-06] MEDS: CHOLECALCIFEROL 5,000 UNIT CAPSULE PO SCH (08:26)
--- NOTE | 2025-08-06 10:25 | PROVIDER PROGRESS NOTE ---
Subjective Prog Note Date Prog Note Date: 08/06/25 Prog Note Time: 10:24 Subjective Subjective: Patient continues to endorse significant pain. She received a dose of Flexeril last night from the transportation planner. Has not been getting much by way of her oxycodone. We had an extensive conversation about her restless leg syndrome. She gets a periodical from the [employer] leg Society, and was already aware that Mirapex is no longer first-line treatment for her restless leg syndrome. She has been trying to get her doctor to prescribe her either increased doses of gabapentin or increased opiates for nighttime. We agreed will try higher dose of gabapentin tonight. Otherwise patient denies any chest pain, dyspnea, abdominal pain, nausea or vomiting. She denies any lightheadedness. No significant changes in pain from her leg. Worse with movement. Orthopedics is to see her today. Current Medications Current Medications Current Medications: Current Medications Generic Name Dose Route Start Last Admin Trade Name Freq PRN Reason Stop Dose Admin Acetaminophen 1,000 mg 08/05/25 18:06 08/06/25 05:28 Acetaminophen 500 Mg Tablet PO 1,000 mg TID CUATE Administration Atorvastatin Calcium 40 mg 08/06/25 09:00 08/06/25 08:25 Atorvastatin 40 Mg Tablet PO 40 mg DAILY CUATE Administration Calcium Carbonate/Glycine 500 mg 08/05/25 21:00 08/06/25 08:26 Calcium Carbonate Chew 500 Mg Tablet PO 500 mg BID CUATE Administration Cholecalciferol 5,000 unit 08/06/25 09:00 08/06/25 08:26 Cholecalciferol 5,000 Unit Capsule PO 5,000 unit DAILY CUATE Administration Cyclobenzaprine HCl 10 mg 08/06/25 07:30 Cyclobenzaprine 10 Mg Tablet PO TID PRN Spasms Diclofenac Sodium 2 gm 08/05/25 18:44 Diclofenac Sodium 1% Gel 50 Gm Tube TOP QID PRN pain Ferrous Sulfate 325 mg 08/05/25 19:00 08/06/25 08:26 Ferrous Sulfate 325 Mg Tablet PO 325 mg DAILY CUATE Administration Gabapentin 600 mg 08/05/25 22:00 08/06/25 05:28 Gabapentin 300 Mg Capsule PO 600 mg TID CUATE Administration Gabapentin 300 mg 08/06/25 21:00 Gabapentin 300 Mg Capsule PO QPM [facility] Heparin Sodium (Porcine) 5,000 unit 08/05/25 21:00 08/06/25 08:32 Heparin 5,000 Unit/Ml Vial SUBQ 5,000 unit BID CUATE Administration Lidocaine 1 patch 08/06/25 09:00 08/06/25 08:27 Lidocaine Patch 4% TOP 1 patch DAILY CUATE Administration Metoprolol Tartrate 25 mg 08/05/25 21:00 08/06/25 08:25 Metoprolol Tartrate 25 Mg Tablet PO 25 mg BID CUATE Administration Multivitamins 1 tab 08/06/25 09:00 08/06/25 08:25 Multivitamin Tablet PO 1 tab DAILY CUATE Administration Ondansetron HCl 4 mg 08/05/25 18:06 Ondansetron Odt 4 Mg Tablet TL Q6HR PRN Nausea / Vomiting Ondansetron HCl 4 mg 08/05/25 18:06 Ondansetron 4 Mg/2 Ml Vial IVP Q6HR PRN Nausea / Vomiting Oxycodone HCl 5 mg 08/05/25 18:06 08/06/25 00:07 Oxycodone 5 Mg Tablet PO 5 mg Q4HR PRN Administration Pain 5 to 7 Oxycodone HCl 10 mg 08/05/25 18:06 Oxycodone 5 Mg Tablet PO Q4HR PRN Pain 8 to 10 Polyethylene Glycol 17 gm 08/06/25 09:00 08/06/25 08:26 Polyethylene Glycol 3350 17 Gm Packet PO 17 gm DAILY CUATE Administration Pramipexole Dihydrochloride 0.125 mg 08/05/25 21:00 08/05/25 20:36 Pramipexole 0.25 Mg Tablet PO 0.125 mg QPM CUATE Administration Senna 8.6 mg 08/05/25 21:00 08/06/25 08:26 Senna 8.6 Mg Tablet PO 8.6 mg BID CUATE Administration Sodium Chloride 10 ml 08/05/25 18:06 Sodium Chloride Flush 0.9% 10 Ml Syringe IVP PRN PRN NEEDED PER PROVIDER ORDERS Sodium Chloride 10 ml 08/05/25 18:06 08/06/25 08:27 Sodium Chloride Flush 0.9% 10 Ml Syringe IVP 10 ml 0100,0900,1700 CUATE Administration Objective Vital Signs/Intake & Output Vital Signs: Vital Signs x48h Temp Pulse Pulse Resp BP BP Pulse Ox 08/06/25 08:51 36.7 C 76 18 130/66 97 08/06/25 08:25 76 130/66 08/06/25 05:01 36.6 C 72 14 110/63 95 Intake & Output: Intake & Output 08/03/25 08/04/25 08/05/25 08/06/25 23:59 23:59 23:59 23:59 Intake Total 240 / 240 360 / 360 Output Total 250 / 250 1300 / 1300 Balance -10 / -10 -940 / -940 Weight (kg) 61.5 kg Lab Results 08/06/25 04:33 08/06/25 04:33 Other Labs: Lab Results x24hrs 08/06/25 08/05/25 Range/Units 04:33 16:50 WBC 4.8 9.0 (4.8-10.8) x10^3/uL RBC 3.61 L 3.78 L (4.20-5.40) 10^6/uL Hgb 10.5 L 11.1 L (12.0-16.0) g/dL Hct 33.7 L 35.8 L (37.0-47.0) % MCV 93.4 94.7 (81.0-99.0) fL MCH 29.1 29.4 (27.0-31.0) pg MCHC 31.2 L 31.0 L (32.0-36.0) g/dL RDW 13.1 13.2 (12.0-15.0) % Plt Count 266 278 (130-450) 10^3/uL MPV 9.7 9.7 (7.9-10.8) fL Neut # (Auto) 3.9 6.6 (1.5-6.6) 10^3/uL Lymph # (Auto) 0.7 L 1.2 L (1.5-3.5) 10^3/uL [place] # (Auto) 0.1 0.8 (0.0-1.0) 10^3/uL Eos # (Auto) 0.0 0.2 (0.0-0.7) 10^3/uL Baso # (Auto) 0.0 0.1 (0.0-0.1) 10^3/uL Absolute Nucleated RBC 0.00 0.00 x10^3/uL Nucleated RBC % 0.0 0.0 /100WBC PT 11.5 (9.9-12.6) secs INR 1.0 (0.8-1.2) Sodium 133 L 137 (135-145) mmol/L Potassium 4.4 4.3 (3.5-4.5) mmol/L Chloride 101 101 (101-111) mmol/L Carbon Dioxide 26 26 (21-32) mmol/L Anion Gap 6.0 10.0 (6-13) BUN 17 19 (6-20) mg/dL Creatinine 0.8 0.9 (0.6-1.3) mg/dL Estimated GFR (MDRD) 69 L 60 L (>89) Glucose 162 H 97 (74-104) mg/dL Calcium 8.8 9.1 (8.5-10.3) mg/dL Total Bilirubin 0.5 (0.2-1.0) mg/dL AST 16 (10-42) IU/L ALT 11 (10-60) IU/L Alkaline Phosphatase 73 (42-121) IU/L Total Protein 6.9 (6.4-8.9) g/dL Albumin 4.3 (3.2-5.5) g/dL Globulin 2.6 (2.1-4.2) g/dL Albumin/Globulin Ratio 1.7 (1.0-2.2) Assessment/Plan Problem List (1) Subcapital fracture of left hip: Impression: Pain has been reasonably well-controlled. She has requested a muscle relaxer for spasm. She notes this makes her sleepy, and will likely only use it at night. Patient with mechanical ground-level fall happening 4 days prior to admission. She reports that she landed predominantly on her right side and struck her head. She did not have any immediate injury. She later found she was having difficulty walking on her left lower extremity on day of admission. Is found on CT to have a left femoral neck subcapital fracture that is impacted. There is an attempt for a nerve block in the ED, but she is still having significant pain in her left lower extremity. Given her anticoagulation in the setting of her atrial fibrillation, likely some delay for surgery. Her last dose of Eliquis was the evening of 08/04 - Appreciate orthopedic consult, surgery likely 08/08 - Continue to hold DOAC - Multimodal pain management o Scheduled Tylenol 1 g 3 times daily o Oxycodone 5 to 10 mg every 4 hours as needed o Continue home gabapentin 600 mg p.o. 3 times daily o Parenteral hydromorphone 0.5 mg every 2 hours as needed available for breakthrough o Topical lidocaine patch o Flexeril 3 times daily as needed o Heat pad - SQ heparin for DVT prophylaxis preoperatively - PT evaluation following surgery Qualifiers: Encounter type: initial encounter Fracture type: closed Qualified Code(s): S72.012A - Unspecified intracapsular fracture of left femur, initial encounter for closed fracture (2) Chronic pain: Impression: Patient's pain has remained reasonably stable. She required a dose of Flexeril last evening. As above. She is on scheduled Tylenol already outpatient. She takes 5 mg oxycodone twice daily as needed for breakthrough pain at home. She says she takes this most days. Patient has been on prednisone 10 mg daily for cervical spine pain. This is likely not effective in the postacute phase. This actually may delay healing. Opting not to continue. - Discontinue prednisone on discharge - Will monitor for symptoms of adrenal insufficiency, unlikely but possible on doses of 10 mg going for 6 months. 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 In reviewing the ED documentation, they did discuss with the patient, and she stated that this was stable. Of note the radiologist compared to a study from December of this year. Her initial injury was in May 2024. She wore a c-collar for 3 months following. It was read as being unchanged from 2023 when surveilled in December 2024. Specifically the study from 08/05/2025 reads that she has had "progressive posterior subluxation of the clivus relative to the atlas with progressive narrowing of the craniocervical junction." That being said she is neurovascularly intact. She has good sensation and can move with limitations of her pain. She moves both her upper extremities equally. She has no deficits. No autonomic instability. She has not noticed any change in her persistent falls which have been going on for over a year. - Continue to clinically monitor neuroexam - Will need ongoing outpatient follow-up with neurosurgery, Her surgeon is at . Qualifiers: Cervical vertebra fracture level: C2 Encounter type: initial encounter Fracture alignment: displaced Fracture morphology: other fracture Fracture type: closed Qualified Code(s): S12.190A - Other displaced fracture of second cervical vertebra, initial encounter for closed fracture (4) Osteoporosis: Impression: Patient with known history of osteoporosis. She is on alendronate 70 mg p.o. She takes her dose every Wednesday. She also takes vitamin D 5000 units p.o. daily. 400 mg of elemental calcium daily in the form of calcium citrate - Resume alendronate on discharge. - Continue calcium and vitamin D Qualifiers: Encounter type: initial encounter Osteoporosis type: age-related P resence of current pathological fracture: with current pathological fracture Q ualified Code(s): M80.00XA - Age-related osteoporosis with current pathological fracture, unspecified site, initial encounter for fracture (5) Iron (Fe) deficiency anemia: Impression: Hemoglobin has remained stable. Trending around 10.5-11. Patient has a history of iron deficiency anemia. Her hemoglobin on arrival is 11.1. This is similar to her baseline which tends to be around 11. No signs of active bleeding. - Will continue monitor CBC perioperatively. - Continue home iron supplement (6) Atrial fibrillation: Impression: Remained stable and rate controlled. Home medications include metoprolol tartrate 25 mg twice daily as well as Eliquis 2.5 mg daily. Unclear why she is on 2.5 mg Eliquis. She is greater than 80 years old, but her weight is not less than 60 kg. Her serum creatinine does also not qualify her for renal dosing. - Continue Lopressor 25 mg twice daily - Consider discharge on Toprol 50 mg daily - Postoperatively when safe to do so we will resume 5 mg Eliquis twice daily (7) Restless legs syndrome: Impression: Reasonably stable on Mirapex home dose. Patient is aware of new guidelines. She is willing to trial increased dose of gabapentin at night. Longstanding history of restless leg syndrome. She reports that her home medication is recently changed. She was on half tablet of Mirapex up until May and then was transition up to 1 full tablet of Mirapex. Of note the 2024 [place] [employer] guidelines now recommend against the standard use of Mirapex for RLS. The predominant reason these are no longer recommended is because they exhibit augmentation. This may be demonstrated by her recent dose increase. Gabapentinoids or low-dose opiates are preferential for treatment of RLS. - At this time we will continue her Mirapex 0.25mg qhs - Increase dose of gabapentin nightly to 900 mg. I spent a total of 47 minutes in the care of this patient today. This time was spent reviewing labs, vital signs, imaging, interviewing and examining the patient, and discussing plan of care with them and their other care providers. Managing acute condition or injury that poses a threat to bodily function. Parenteral controlled substances as above. [id number].
[2025-08-06] MEDS: CYCLOBENZAPRINE 10 MG TABLET PO PRN (10:58)
[2025-08-06] MEDS: HYDROmorphone 0.5 MG/0.5 ML SYRINGE IVP PRN (12:04)
--- NOTE | 2025-08-06 16:00 | PHARMACY PROGRESS NOTE ---
Best Possible Medication History Admit Date and Time: 08/05/25 1627 Home Medications Medication Instructions Recorded Confirmed Type multivitamin (Daily Multi-Vitamin 1 ea PO DAILY 08/05/25 History tablet) acetaminophen 500 mg tablet 1,000 mg (2 x 500 mg) PO Q 6H #90 01/31/24 08/05/25 Rx tabs cholecalciferol (vitamin D3) 125 5,000 unit PO DAILY # 90 caps 01/31/24 08/05/25 Rx mcg (5,000 unit) capsule ferrous sulfate 325 mg (65 mg 325 mg PO DAILY 07/26/24 08/06/25 History iron) tablet apixaban 2.5 mg tablet 2.5 mg PO BID #180 tabs 07/2308/05/25 Rx potassium chloride 10 mEq 10 meq PO DAILY 08/01/24 History tablet,extended release metoprolol tartrate 25 mg tablet 25 mg PO BID #180 tab s 12/23/24 08/05/25 Rx calcium citrate 200 mg PO BID 12/29/2408/05 History gabapentin 600 mg tablet 600 mg PO TID 12/29/2408/05 History oxycodone 5 mg tablet 5 mg PO BID PRN Severe 07/0408/05/25 Rx Breakthrough pain(8-10) #56 tabs pramipexole 0.125 mg tablet 0.125 mg PO QPM Restless l eg 07/04/25 08/05/25 Rx syndrome #90 tabs alendronate 70 mg tablet 70 mg PO OAW 08/06/25 History Processed by: Pharmacy Medications reviewed in ED?: Yes Medication History completed: Yes Patient Interview: Completed Secondary Source(s): Spouse/Significant other and Insurance records [facility] Statement: As the person ultimately responsible for medication therapy, providers are able to order a medication from an existing home medication list in [facility] via the "Reconcile Routine" prior to Confirmation of that medication by functional support analyst. Such practice is discouraged except when the physician, in their clinical judgment, deems that a medical need exists for a medication without regard to previous use.
[2025-08-06] MEDS ORDERED: CALCIUM CARBONATE CHEW 500 MG TABLET PO PRN (19:58)
[2025-08-06] MEDS: GABAPENTIN 300 MG CAPSULE PO SCH (22:51)
[2025-08-07 05:06] LABS: HCT - HEMATOCRIT 31.8 % (37.0-47.0); HGB - HEMOGLOBIN 9.9 g/dL (12.0-16.0); MEAN PLATELET VOLUME 10.1 fL (7.9-10.8); NRBC ABSOLUTE COUNT (AUTO) 0.00 x10^3/uL; NUCLEATED RED BLOOD CELLS AUTO 0.0 /100WBC; PLT - PLATELET COUNT 264 10^3/uL (130-450); RED CELL DISTRIBUTION WIDTH 13.4 % (12.0-15.0)
[2025-08-07 05:30] LABS: BUN - BLOOD UREA NITROGEN 25.0 mg/dL (6-20); CARBON DIOXIDE - CO2 28.0 mmol/L (21-32); CREATININE 0.9 mg/dL (0.6-1.3); GFR - MDRD 60.0 (>89)
--- NOTE | 2025-08-07 08:14 | POST OP PROGRESS NOTE ---
Subjective General Admit Date: 08/05/25 Procedure Date: 01/28/24 Post Op Days: 557 Other Other Information/Narrative: The patient states that she is doing okay with the exception of spasms. She states that she takes cyclobenzaprine at home and that the spasms were present before she came in the hospital but since she has broken her hip they just seem like they are a little bit worse. Ortho Surgical Progress Note Problem List Problem List: The patient is on the schedule to have surgery tomorrow for left hip hem iarthroplasty andShe understands all the risks and benefits. Exam Exam Exam is unchanged from previous visit. Patient has good distal pulses unable to straight leg raise neurovascularly intact.
--- NOTE | 2025-08-07 11:33 | PROVIDER PROGRESS NOTE ---
Subjective Subjective Subjective: Patient continues to have significant pain in her left hip, rating down to her leg. She states the oxycodone takes 1 to 2 hours to kick in. The Dilaudid has been the most helpful in alleviating pain. Spoke with Dr. Cedillo, with orthopedic surgery today. Plan is OR tomorrow afternoon. Current Medications Current Medications Current Medications: Current Medications Generic Name Dose Route Start Last Admin Trade Name Freq PRN Reason Stop Dose Admin Acetaminophen 1,000 mg 08/05/25 18:06 08/07/25 05:59 Acetaminophen 500 Mg Tablet PO 1,000 mg TID CUATE Administration Calcium Carbonate/Glycine 500 mg 08/05/25 21:00 08/07/25 08:28 Calcium Carbonate Chew 500 Mg Tablet PO 500 mg BID CUATE Administration Calcium Carbonate/Glycine 500 mg 08/06/25 19:58 Calcium Carbonate Chew 500 Mg Tablet PO Q4H PRN INDIGESTION Cholecalciferol 5,000 unit 08/06/25 09:00 08/07/25 08:29 Cholecalciferol 5,000 Unit Capsule PO 5,000 unit DAILY CUATE Administration Cyclobenzaprine HCl 10 mg 08/06/25 07:30 08/06/25 20:26 Cyclobenzaprine 10 Mg Tablet PO 10 mg TID PRN Administration Spasms Diclofenac Sodium 2 gm 08/05/25 18:44 Diclofenac Sodium 1% Gel 50 Gm Tube TOP QID PRN pain Ferrous Sulfate 325 mg 08/05/25 19:00 08/07/25 08:28 Ferrous Sulfate 325 Mg Tablet PO 325 mg DAILY CUATE Administration Gabapentin 600 mg 08/05/25 22:00 08/07/25 05:58 Gabapentin 300 Mg Capsule PO 600 mg TID CUATE Administration Gabapentin 300 mg 08/06/25 21:00 08/06/25 22:51 Gabapentin 300 Mg Capsule PO 300 mg QPM CUATE Administration Heparin Sodium (Porcine) 5,000 unit 08/05/25 21:00 08/07/25 08:29 Heparin 5,000 Unit/Ml Vial SUBQ 5,000 unit BID CUATE Administration Hydromorphone HCl 0.5 mg 08/06/25 11:40 08/07/25 08:32 Hydromorphone 0.5 Mg/0.5 Ml Syringe IVP 0.5 mg Q2H PRN Administration Severe Pain (Level 7-10) Lidocaine 1 patch 08/06/25 09:00 08/07/25 08:29 Lidocaine Patch 4% TOP 1 patch DAILY CUATE Administration Metoprolol Tartrate 25 mg 08/05/25 21:00 08/07/25 08:29 Metoprolol Tartrate 25 Mg Tablet PO 25 mg BID CUATE Administration Multivitamins 1 tab 08/06/25 09:00 08/07/25 08:28 Multivitamin Tablet PO 1 tab DAILY CUATE Administration Ondansetron HCl 4 mg 08/05/25 18:06 Ondansetron Odt 4 Mg Tablet TL Q6HR PRN Nausea / Vomiting Ondansetron HCl 4 mg 08/05/25 18:06 Ondansetron 4 Mg/2 Ml Vial IVP Q6HR PRN Nausea / Vomiting Oxycodone HCl 5 mg 08/05/25 18:06 08/06/25 22:58 Oxycodone 5 Mg Tablet PO 5 mg Q4HR PRN Administration Pain 5 to 7 Oxycodone HCl 10 mg 08/05/25 18:06 Oxycodone 5 Mg Tablet PO Q4HR PRN Pain 8 to 10 Polyethylene Glycol 17 gm 08/06/25 09:00 08/07/25 08:30 Polyethylene Glycol 3350 17 Gm Packet PO 17 gm DAILY CUATE Administration Pramipexole Dihydrochloride 0.125 mg 08/05/25 21:00 08/06/25 22:58 Pramipexole 0.25 Mg Tablet PO Not Given QPM CUATE Senna 8.6 mg 08/05/25 21:00 08/07/25 08:28 Senna 8.6 Mg Tablet PO 8.6 mg BID CUATE Administration Sodium Chloride 10 ml 08/05/25 18:06 Sodium Chloride Flush 0.9% 10 Ml Syringe IVP PRN PRN NEEDED PER PROVIDER ORDERS Sodium Chloride 10 ml 08/05/25 18:06 08/07/25 08:30 Sodium Chloride Flush 0.9% 10 Ml Syringe IVP 10 ml 0100,0900,1700 CUATE Administration Objective Vital Signs/Intake & Output Reviewed Vital Signs: Yes Vital Signs: Vital Signs x48h Temp Pulse Pulse Resp BP BP Pulse Ox 08/07/25 08:29 65 124/62 08/07/25 08:16 98.1 F 65 16 124/62 95 Intake & Output: Intake & Output 08/04/25 08/05/25 08/06/2516/25 23:59 23:59 23:59 23:59 Intake Total 240 / 240 2080 / 2080 Output Total 250 / 250 2400 / 2400 1200 / 1200 Balance -10 / -10 -320 / -320 -1200 / -1200 Weight (kg) 61.5 kg Objective General Appearance: positive No acute distress and Alert; negative Anxious Eyes Bilateral: positive Normal inspection, PERRL and EOMI ENT: positive ENT inspection nml, Pharynx nml and No signs of dehydration Neck: positive Nml inspection, Thyroid nml and No JVD Respiratory: positive Chest non-tender, No respiratory distress and Breath sounds nml; negative Wheezes, Rales or Rhonchi Cardiovascular: positive No murmur, No gallop and Irregularly irregular; negative Tachycardia or Systolic murmur Abdomen: positive Non-tender, No organomegaly and No distention; negative Guarding or Splenomegaly Back: positive Nml inspection; negative CVA tenderness (R) or CVA tenderness (L) Skin: positive No rash and Warm Extremities: positive Other (Posterior tibialis, dorsalis pedis pulses present bilaterally. Left lower extremity is slightly shortened, as well as externally rotated. Pain with even slight movement.) Neurologic/Psychiatric: positive Oriented x3, Motor nml and Mood/affect nml Lab Results 08/07/25 04:22 08/07/25 04:22 Other Labs: Lab Results x24hrs 08/07/25 Range/Units 04:22 WBC 8.0 (4.8-10.8) x10^3/uL RBC 3.40 L (4.20-5.40) 10^6/uL Hgb 9.9 L (12.0-16.0) g/dL Hct 31.8 L (37.0-47.0) % MCV 93.5 (81.0-99.0) fL MCH 29.1 (27.0-31.0) pg MCHC 31.1 L (32.0-36.0) g/dL RDW 13.4 (12.0-15.0) % Plt Count 264 (130-450) 10^3/uL MPV 10.1 (7.9-10.8) fL Neut # (Auto) 4.9 (1.5-6.6) 10^3/uL Lymph # (Auto) 2.2 (1.5-3.5) 10^3/uL [place] # (Auto) 0.8 (0.0-1.0) 10^3/uL Eos # (Auto) 0.1 (0.0-0.7) 10^3/uL Baso # (Auto) 0.0 (0.0-0.1) 10^3/uL Absolute Nucleated RBC 0.00 x10^3/uL Nucleated RBC % 0.0 /100WBC Sodium 132 L (135-145) mmol/L Potassium 4.5 (3.5-4.5) mmol/L Chloride 100 L (101-111) mmol/L Carbon Dioxide 28 (21-32) mmol/L Anion Gap 4.0 L (6-13) BUN 25 H (6-20) mg/dL Creatinine 0.9 (0.6-1.3) mg/dL Estimated GFR (MDRD) 60 L (>89) Glucose 101 (74-104) mg/dL Calcium 8.8 (8.5-10.3) mg/dL Assessment/Plan Problem List (1) Subcapital fracture of left hip: Impression: Patient presented with mechanical fall approximately [address] of the pelvis shows left femoral neck subcapital fracture with minimal impaction. Patient's last dose of Eliquis was 08/04. Plan is for orthopedic surgical repair on 08/08. Plan for PT evaluation following this. Continue multimodal pain management with scheduled Tylenol, gabapentin, topical lidocaine patch. Continue oxycodone for moderate pain, Dilaudid for severe pain, Flexeril as needed for spasms. Heparin subcu was ordered for DVT prophylaxis; will hold tonight, and tomorrow morning's dose in preparation for surgery. NPO at midnight. Qualifiers: Encounter type: initial encounter Fracture type: closed Qualified Code(s): S72.012A - Unspecified intracapsular fracture of left femur, initial encounter for closed fracture (2) Chronic pain: Impression: She is on scheduled Tylenol already outpatient. She takes 5 mg oxycodone twice daily as needed for breakthrough pain at home. She says she takes this most days. Patient has been on prednisone 10 mg daily for cervical spine pain. This is likely not effective in the postacute phase. This actually may delay healing. Opting not to continue. Discontinue prednisone on discharge. Will monitor for symptoms of adrenal insufficiency, unlikely but possible on doses of 10 mg going for 6 months. Continue home scheduled sennosides as well as MiraLAX. 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 In reviewing the ED documentation, they did discuss with the patient, and she stated that this was stable. Of note the radiologist compared to a study from December of this year. Her initial injury was in May 2024. She wore a c-collar for 3 months following. It was read as being unchanged from 2023 when surveilled in December 2024. Specifically the study from 08/05/2025 reads that she has had "progressive posterior subluxation of the clivus relative to the atlas with progressive narrowing of the craniocervical junction." That being said she is neurovascularly intact. She has good sensation and can move with limitations of her pain. She moves both her upper extremities equally. She has no deficits. No autonomic instability. She has not noticed any change in her persistent falls which have been going on for over a year. Continue to clinically monitor neuroexam. Will need ongoing outpatient follow-up with neurosurgery, Her surgeon is at . Qualifiers: Cervical vertebra fracture level: C2 Encounter type: initial encounter Fracture alignment: displaced Fracture morphology: other fracture Fracture type: closed Qualified Code(s): S12.190A - Other displaced fracture of second cervical vertebra, initial encounter for closed fracture (4) Osteoporosis: Impression: Patient with known history of osteoporosis. She is on alendronate 70 mg p.o. She takes her dose every Wednesday. She also takes vitamin D 5000 units p.o. daily. 400 mg of elemental calcium daily in the form of calcium citrate. Resume alendronate on discharge. Continue calcium and vitamin D. Qualifiers: Encounter type: initial encounter Osteoporosis type: age-related P resence of current pathological fracture: with current pathological fracture Q ualified Code(s): M80.00XA - Age-related osteoporosis with current pathological fracture, unspecified site, initial encounter for fracture (5) Iron (Fe) deficiency anemia: Impression: Hemoglobin has remained stable. Trending around 10.5-11. Patient has a history of iron deficiency anemia. Her hemoglobin on arrival is 11.1. This is similar to her baseline which tends to be around 11. No signs of active bleeding. Continue home iron supplement. (6) Atrial fibrillation: Impression: Remained stable and rate controlled. Home medications include metoprolol tartrate 25 mg twice daily as well as Eliquis 2.5 mg daily. Unclear why she is on 2.5 mg Eliquis. Continue Lopressor 25 mg twice daily. Consider discharge on Toprol 50 mg daily. Postoperatively, when safe to do so, we will resume 5 mg Eliquis twice daily. (7) Restless legs syndrome: Impression: Reasonably stable on Mirapex home dose. Patient is aware of new guidelines. She is willing to trial increased dose of gabapentin at night. At this time we will continue her Mirapex 0.25mg qhs. Increase dose of gabapentin nightly to 900 mg.
[2025-08-07] MEDS: oxyCODONE 5 MG TABLET PO PRN (13:58)
[2025-08-08 06:21] LABS: HCT - HEMATOCRIT 36.2 % (37.0-47.0); HGB - HEMOGLOBIN 11.1 g/dL (12.0-16.0); MEAN PLATELET VOLUME 9.8 fL (7.9-10.8); NRBC ABSOLUTE COUNT (AUTO) 0.00 x10^3/uL; NUCLEATED RED BLOOD CELLS AUTO 0.0 /100WBC; PLT - PLATELET COUNT 265 10^3/uL (130-450); RED CELL DISTRIBUTION WIDTH 13.6 % (12.0-15.0)
[2025-08-08 06:32] LABS: BUN - BLOOD UREA NITROGEN 22.0 mg/dL (6-20); CARBON DIOXIDE - CO2 27.0 mmol/L (21-32); CREATININE 0.9 mg/dL (0.6-1.3); GFR - MDRD 60.0 (>89)
--- NOTE | 2025-08-08 07:55 | PROVIDER PROGRESS NOTE ---
Subjective Subjective Subjective: Patient continues to have significant pain in her left hip, rating down to her leg. She states the oxycodone takes 1 to 2 hours to kick in. The Dilaudid has been the most helpful in alleviating pain. She is resting comfortably. She has a dry mouth. Spoke with Dr. Cedillo, with orthopedic surgery today. Original plan was OR today, but with the power outage, this may be pushed to tomorrow. Current Medications Current Medications Current Medications: Current Medications Generic Name Dose Route Start Last Admin Trade Name Freq PRN Reason Stop Dose Admin Acetaminophen 1,000 mg 08/05/25 18:06 08/08/25 06:12 Acetaminophen 500 Mg Tablet PO Not Given TID CUATE Calcium Carbonate/Glycine 500 mg 08/05/25 21:00 08/07/25 21:07 Calcium Carbonate Chew 500 Mg Tablet PO 500 mg BID CUATE Administration Calcium Carbonate/Glycine 500 mg 08/06/25 19:58 Calcium Carbonate Chew 500 Mg Tablet PO Q4H PRN INDIGESTION Cholecalciferol 5,000 unit 08/06/25 09:00 08/07/25 08:29 Cholecalciferol 5,000 Unit Capsule PO 5,000 unit DAILY CUATE Administration Cyclobenzaprine HCl 10 mg 08/06/25 07:30 08/06/25 20:26 Cyclobenzaprine 10 Mg Tablet PO 10 mg TID PRN Administration Spasms Diclofenac Sodium 2 gm 08/05/25 18:44 Diclofenac Sodium 1% Gel 50 Gm Tube TOP QID PRN pain Ferrous Sulfate 325 mg 08/05/25 19:00 08/07/25 08:28 Ferrous Sulfate 325 Mg Tablet PO 325 mg DAILY CUATE Administration Gabapentin 600 mg 08/05/25 22:00 08/08/25 06:13 Gabapentin 300 Mg Capsule PO Not Given TID CUATE Gabapentin 300 mg 08/06/25 21:00 08/07/25 21:07 Gabapentin 300 Mg Capsule PO 300 mg QPM CUATE Administration Hydromorphone HCl 0.5 mg 08/06/25 11:40 08/08/25 05:28 Hydromorphone 0.5 Mg/0.5 Ml Syringe IVP 0.5 mg Q2H PRN Administration Severe Pain (Level 7-10) Lidocaine 1 patch 08/06/25 09:00 08/07/25 08:29 Lidocaine Patch 4% TOP 1 patch DAILY CUATE Administration Metoprolol Tartrate 25 mg 08/05/25 21:00 08/07/25 21:08 Metoprolol Tartrate 25 Mg Tablet PO 25 mg BID CUATE Administration Multivitamins 1 tab 08/06/25 09:00 08/07/25 08:28 Multivitamin Tablet PO 1 tab DAILY CUATE Administration Ondansetron HCl 4 mg 08/05/25 18:06 Ondansetron Odt 4 Mg Tablet TL Q6HR PRN Nausea / Vomiting Ondansetron HCl 4 mg 08/05/25 18:06 Ondansetron 4 Mg/2 Ml Vial IVP Q6HR PRN Nausea / Vomiting Oxycodone HCl 5 mg 08/05/25 18:06 08/06/25 22:58 Oxycodone 5 Mg Tablet PO 5 mg Q4HR PRN Administration Pain 5 to 7 Oxycodone HCl 10 mg 08/05/25 18:06 08/07/25 13:58 Oxycodone 5 Mg Tablet PO 10 mg Q4HR PRN Administration Pain 8 to 10 Polyethylene Glycol 17 gm 08/06/25 09:00 08/07/25 08:30 Polyethylene Glycol 3350 17 Gm Packet PO 17 gm DAILY CUATE Administration Pramipexole Dihydrochloride 0.125 mg 08/05/25 21:00 08/07/25 21:08 Pramipexole 0.25 Mg Tablet PO 0.125 mg QPM CUATE Administration Senna 8.6 mg 08/05/25 21:00 08/07/25 21:08 Senna 8.6 Mg Tablet PO 8.6 mg BID CUATE Administration Sodium Chloride 10 ml 08/05/25 18:06 Sodium Chloride Flush 0.9% 10 Ml Syringe IVP PRN PRN NEEDED PER PROVIDER ORDERS Sodium Chloride 10 ml 08/05/25 18:06 08/07/25 23:26 Sodium Chloride Flush 0.9% 10 Ml Syringe IVP 10 ml 0100,0900,1700 CUATE Administration Objective Vital Signs/Intake & Output Reviewed Vital Signs: Yes Vital Signs: Vital Signs x48h Temp Pulse Pulse Resp BP BP Pulse Ox 08/07/25 08:29 65 124/62 08/07/25 08:16 98.1 F 65 16 124/62 95 Intake & Output: Intake & Output 08/05/25 08/06/25 08/07/25 08/08/25 23:59 23:59 23:59 23:59 Intake Total 240 / 240 2080 / 2080 1010 / 1010 Output Total 250 / 250 2400 / 2400 3400 / 3400 1325 / 1325 Balance -10 / -10 -320 / -320 -2390 / -2390 -1325 / -1325 Weight (kg) 61.5 kg Objective General Appearance: positive No acute distress and Alert; negative Anxious Eyes Bilateral: positive Normal inspection, PERRL and EOMI ENT: positive ENT inspection nml, Pharynx nml and No signs of dehydration Neck: positive Nml inspection, Thyroid nml and No JVD Respiratory: positive Chest non-tender, No respiratory distress and Breath sounds nml; negative Wheezes, Rales or Rhonchi Cardiovascular: positive No murmur, No gallop and Irregularly irregular; negative Tachycardia or Systolic murmur Abdomen: positive Non-tender, No organomegaly and No distention; negative Guarding or Splenomegaly Back: positive Nml inspection; negative CVA tenderness (R) or CVA tenderness (L) Skin: positive No rash and Warm Extremities: positive Other (Posterior tibialis, dorsalis pedis pulses present bilaterally. Left lower extremity is slightly shortened, as well as externally rotated. Pain with even slight movement.) Neurologic/Psychiatric: positive Oriented x3, Motor nml and Mood/affect nml Lab Results 08/08/25 05:59 08/08/25 05:59 Other Labs: Lab Results x24hrs 08/08/25 Range/Units 05:59 WBC 6.3 (4.8-10.8) x10^3/uL RBC 3.78 L (4.20-5.40) 10^6/uL Hgb 11.1 L (12.0-16.0) g/dL Hct 36.2 L (37.0-47.0) % MCV 95.8 (81.0-99.0) fL MCH 29.4 (27.0-31.0) pg MCHC 30.7 L (32.0-36.0) g/dL RDW 13.6 (12.0-15.0) % Plt Count 265 (130-450) 10^3/uL MPV 9.8 (7.9-10.8) fL Neut # (Auto) 3.7 (1.5-6.6) 10^3/uL Lymph # (Auto) 1.5 (1.5-3.5) 10^3/uL [place] # (Auto) 0.8 (0.0-1.0) 10^3/uL Eos # (Auto) 0.2 (0.0-0.7) 10^3/uL Baso # (Auto) 0.1 (0.0-0.1) 10^3/uL Absolute Nucleated RBC 0.00 x10^3/uL Nucleated RBC % 0.0 /100WBC Sodium 138 (135-145) mmol/L Potassium 4.2 (3.5-4.5) mmol/L Chloride 105 (101-111) mmol/L Carbon Dioxide 27 (21-32) mmol/L Anion Gap 6.0 (6-13) BUN 22 H (6-20) mg/dL Creatinine 0.9 (0.6-1.3) mg/dL Estimated GFR (MDRD) 60 L (>89) Glucose 91 (74-104) mg/dL Calcium 8.8 (8.5-10.3) mg/dL Magnesium 2.2 (1.7-2.3) mg/dL Assessment/Plan Problem List (1) Subcapital fracture of left hip: Impression: Patient presented with mechanical fall approximately [address] of the pelvis shows left femoral neck subcapital fracture with minimal impaction. Patient's last dose of Eliquis was 08/04. Plan is for orthopedic surgical repair on 08/08. May be delayed to 08/09 pending power outage status. Plan for PT evaluation following this. Continue multimodal pain management with scheduled Tylenol, gabapentin, topical lidocaine patch. Continue oxycodone for moderate pain, Dilaudid for severe pain, Flexeril as needed for spasms. Heparin subcu was ordered for DVT prophylaxis; NPO for surgery at this time. Qualifiers: Encounter type: initial encounter Fracture type: closed Qualified Code(s): S72.012A - Unspecified intracapsular fracture of left femur, initial encounter for closed fracture (2) Chronic pain: Impression: She is on scheduled Tylenol already outpatient. She takes 5 mg oxycodone twice daily as needed for breakthrough pain at home. She says she takes this most days. Patient has been on prednisone 10 mg daily for cervical spine pain. This is likely not effective in the postacute phase. This actually may delay healing. Opting not to continue. Discontinue prednisone on discharge. Will monitor for symptoms of adrenal insufficiency, unlikely but possible on doses of 10 mg going for 6 months. Continue home scheduled sennosides as well as MiraLAX. 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 In reviewing the ED documentation, they did discuss with the patient, and she stated that this was stable. Of note the radiologist compared to a study from December of this year. Her initial injury was in May 2024. She wore a c-collar for 3 months following. It was read as being unchanged from 2023 when surveilled in December 2024. Specifically the study from 08/05/2025 reads that she has had "progressive posterior subluxation of the clivus relative to the atlas with progressive narrowing of the craniocervical junction." That being said she is neurovascularly intact. She has good sensation and can move with limitations of her pain. She moves both her upper extremities equally. She has no deficits. No autonomic instability. She has not noticed any change in her persistent falls which have been going on for over a year. Continue to clinically monitor neuroexam. Will need ongoing outpatient follow-up with neurosurgery, Her surgeon is at . Qualifiers: Cervical vertebra fracture level: C2 Encounter type: initial encounter Fracture alignment: displaced Fracture morphology: other fracture Fracture type: closed Qualified Code(s): S12.190A - Other displaced fracture of second cervical vertebra, initial encounter for closed fracture (4) Osteoporosis: Impression: Patient with known history of osteoporosis. She is on alendronate 70 mg p.o. She takes her dose every Wednesday. She also takes vitamin D 5000 units p.o. daily. 400 mg of elemental calcium daily in the form of calcium citrate. Resume alendronate on discharge. Continue calcium and vitamin D. Qualifiers: Encounter type: initial encounter Osteoporosis type: age-related P resence of current pathological fracture: with current pathological fracture Q ualified Code(s): M80.00XA - Age-related osteoporosis with current pathological fracture, unspecified site, initial encounter for fracture (5) Iron (Fe) deficiency anemia: Impression: Hemoglobin has remained stable. Trending around 10.5-11. Patient has a history of iron deficiency anemia. Her hemoglobin on arrival is 11.1. This is similar to her baseline which tends to be around 11. No signs of active bleeding. Continue home iron supplement. (6) Atrial fibrillation: Impression: Remained stable and rate controlled. Home medications include metoprolol tartrate 25 mg twice daily as well as Eliquis 2.5 mg daily. Unclear why she is on 2.5 mg Eliquis. Continue Lopressor 25 mg twice daily. Consider discharge on Toprol 50 mg daily. Postoperatively, when safe to do so, we will resume 5 mg Eliquis twice daily. (7) Restless legs syndrome: Impression: Reasonably stable on Mirapex home dose. Patient is aware of new guidelines. She is willing to trial increased dose of gabapentin at night. At this time we will continue her Mirapex 0.25mg qhs. Increase dose of gabapentin nightly to 900 mg.
--- NOTE | 2025-08-08 08:50 | POST OP PROGRESS NOTE ---
Subjective General Admit Date: 08/05/25 Procedure Date: 01/28/24 Post Op Days: 558 Other Other Information/Narrative: Pt w/o new complaint Ortho Surgical Progress Note Problem List Problem List: med mgmt per PCP keep pt NPO for now. D/t jorge, hospital is on generator & unable to run OR at this time. OR will stay in communication. Will follow. D/w Dr. Cedillo Review of Systems Status of ROS: 10 or more systems reviewed and unremarkable except as noted in history and below Exam Exam General appearance: alert, awake, oriented x 3, well-nourished Fracture: L Subcapital femoral neck fracture Head/Eyes: atraumatic Extremities/Vascular: pedal pulses intact, radial pulses intact Musculoskeletal: Left lower extremity shortened and externally rotated.Moves all other limbs. Neuro/[employer]: alert, follows commands; NVI Skin: warm, dry, intact, without erythema, warmth, ecchymosis or obvious clinical deformity Psychiatry: normal affect
[2025-08-08] MEDS: DICLOFENAC SODIUM 1% GEL 50 GM TUBE TOP PRN (15:50)
[2025-08-09 05:36] LABS: HCT - HEMATOCRIT 36.4 % (37.0-47.0); HGB - HEMOGLOBIN 11.4 g/dL (12.0-16.0); MEAN PLATELET VOLUME 9.8 fL (7.9-10.8); NRBC ABSOLUTE COUNT (AUTO) 0.00 x10^3/uL; NUCLEATED RED BLOOD CELLS AUTO 0.0 /100WBC; PLT - PLATELET COUNT 305 10^3/uL (130-450); RED CELL DISTRIBUTION WIDTH 13.5 % (12.0-15.0)
[2025-08-09 06:02] LABS: BUN - BLOOD UREA NITROGEN 17.0 mg/dL (6-20); CARBON DIOXIDE - CO2 26.0 mmol/L (21-32); CREATININE 0.8 mg/dL (0.6-1.3); GFR - MDRD 69.0 (>89)
--- NOTE | 2025-08-09 08:48 | POST OP PROGRESS NOTE ---
Subjective General Admit Date: 08/05/25 Procedure Date: 01/28/24 Post Op Days: 559 Other Other Information/Narrative: The patient continues to complain of left hip pain. She would like to have surgery today. Ortho Surgical Progress Note Problem List Problem List: The patient continues to have left hip pain and we are going to plan on left hip hemiarthroplasty however the operating room is having ventilation issues right now and we are on hold for any surgeries we will fix her as soon as possible. Exam Exam Vital Signs: Vital Signs x48h Temp Resp BP Pulse Ox 08/09/25 08:21 37 C 24 111/55 L 95 Exam is unchanged from previous visit. Patient has good distal pulses unable to straight leg raise neurovascularly intact.
--- NOTE | 2025-08-09 10:03 | PROVIDER PROGRESS NOTE ---
Subjective Subjective Subjective: Patient continues to have significant pain in her left hip, rating down to her leg. She states the oxycodone takes 1 to 2 hours to kick in. The Dilaudid has been the most helpful in alleviating pain. She is looking forward to completion of surgery today. Current Medications Current Medications Current Medications: Current Medications Generic Name Dose Route Start Last Admin Trade Name Freq PRN Reason Stop Dose Admin Acetaminophen 1,000 mg 08/05/25 18:06 08/09/25 04:37 Acetaminophen 500 Mg Tablet PO 1,000 mg TID CUATE Administration Calcium Carbonate/Glycine 500 mg 08/05/25 21:00 08/09/25 09:30 Calcium Carbonate Chew 500 Mg Tablet PO 500 mg BID CUATE Administration Calcium Carbonate/Glycine 500 mg 08/06/25 19:58 Calcium Carbonate Chew 500 Mg Tablet PO Q4H PRN INDIGESTION Cholecalciferol 5,000 unit 08/06/25 09:00 08/09/25 09:30 Cholecalciferol 5,000 Unit Capsule PO 5,000 unit DAILY CUATE Administration Cyclobenzaprine HCl 10 mg 08/06/25 07:30 08/09/25 04:37 Cyclobenzaprine 10 Mg Tablet PO 10 mg TID PRN Administration Spasms Diclofenac Sodium 2 gm 08/05/25 18:44 08/08/25 21:06 Diclofenac Sodium 1% Gel 50 Gm Tube TOP 2 gm QID PRN Administration pain Ferrous Sulfate 325 mg 08/05/25 19:00 08/09/25 09:30 Ferrous Sulfate 325 Mg Tablet PO 325 mg DAILY CUATE Administration Gabapentin 600 mg 08/05/25 22:00 08/09/25 04:36 Gabapentin 300 Mg Capsule PO 600 mg TID CUATE Administration Gabapentin 300 mg 08/06/25 21:00 08/08/25 20:56 Gabapentin 300 Mg Capsule PO 300 mg QPM CUATE Administration Hydromorphone HCl 0.5 mg 08/06/25 11:40 08/08/25 23:04 Hydromorphone 0.5 Mg/0.5 Ml Syringe IVP 0.5 mg Q2H PRN Administration Severe Pain (Level 7-10) Lidocaine 1 patch 08/06/25 09:00 08/09/25 09:31 Lidocaine Patch 4% TOP 1 patch DAILY CUATE Administration Metoprolol Tartrate 25 mg 08/05/25 21:00 08/09/25 09:31 Metoprolol Tartrate 25 Mg Tablet PO 25 mg BID CUATE Administration Multivitamins 1 tab 08/06/25 09:00 08/09/25 09:30 Multivitamin Tablet PO 1 tab DAILY CUATE Administration Ondansetron HCl 4 mg 08/05/25 18:06 Ondansetron Odt 4 Mg Tablet TL Q6HR PRN Nausea / Vomiting Ondansetron HCl 4 mg 08/05/25 18:06 Ondansetron 4 Mg/2 Ml Vial IVP Q6HR PRN Nausea / Vomiting Oxycodone HCl 5 mg 08/05/25 18:06 08/09/25 04:36 Oxycodone 5 Mg Tablet PO 5 mg Q4HR PRN Administration Pain 5 to 7 Oxycodone HCl 10 mg 08/05/25 18:06 08/07/25 13:58 Oxycodone 5 Mg Tablet PO 10 mg Q4HR PRN Administration Pain 8 to 10 Polyethylene Glycol 17 gm 08/06/25 09:00 08/09/25 09:30 Polyethylene Glycol 3350 17 Gm Packet PO 17 gm DAILY CUATE Administration Pramipexole Dihydrochloride 0.125 mg 08/05/25 21:00 08/08/25 20:51 Pramipexole 0.25 Mg Tablet PO 0.125 mg QPM CUATE Administration Senna 8.6 mg 08/05/25 21:00 08/09/25 09:30 Senna 8.6 Mg Tablet PO 8.6 mg BID CUATE Administration Sodium Chloride 10 ml 08/05/25 18:06 Sodium Chloride Flush 0.9% 10 Ml Syringe IVP PRN PRN NEEDED PER PROVIDER ORDERS Sodium Chloride 10 ml 08/05/25 18:06 08/09/25 09:34 Sodium Chloride Flush 0.9% 10 Ml Syringe IVP 10 ml 0100,0900,1700 CUATE Administration Objective Vital Signs/Intake & Output Reviewed Vital Signs: Yes Vital Signs: Vital Signs x48h Temp Resp BP Pulse Ox 08/09/25 08:21 98.6 F 24 111/55 L 95 Intake & Output: Intake & Output 08/06/25 08/07/25 08/08/25 08/09/25 23:59 23:59 23:59 23:59 Intake Total 2080 / 2080 1010 / 1010 600 / 600 Output Total 2400 / 2400 3400 / 3400 2275 / 2275 550 / 550 Balance -320 / -320 -2390 / -2390 -1675 / -1675 -550 / -550 Objective General Appearance: positive No acute distress and Alert; negative Anxious Eyes Bilateral: positive Normal inspection, PERRL and EOMI ENT: positive ENT inspection nml, Pharynx nml and No signs of dehydration Neck: positive Nml inspection, Thyroid nml and No JVD Respiratory: positive Chest non-tender, No respiratory distress and Breath sounds nml; negative Wheezes, Rales or Rhonchi Cardiovascular: positive No murmur, No gallop and Irregularly irregular; negative Tachycardia or Systolic murmur Abdomen: positive Non-tender, No organomegaly and No distention; negative Guarding or Splenomegaly Back: positive Nml inspection; negative CVA tenderness (R) or CVA tenderness (L) Skin: positive No rash and Warm Extremities: positive Other (Posterior tibialis, dorsalis pedis pulses present bilaterally. Left lower extremity is slightly shortened, as well as externally rotated. Pain with even slight movement.) Neurologic/Psychiatric: positive Oriented x3, Motor nml and Mood/affect nml Lab Results 08/09/25 05:13 08/09/25 05:13 Other Labs: Lab Results x24hrs 08/09/25 Range/Units 05:13 WBC 8.4 (4.8-10.8) x10^3/uL RBC 3.85 L (4.20-5.40) 10^6/uL Hgb 11.4 L (12.0-16.0) g/dL Hct 36.4 L (37.0-47.0) % MCV 94.5 (81.0-99.0) fL MCH 29.6 (27.0-31.0) pg MCHC 31.3 L (32.0-36.0) g/dL RDW 13.5 (12.0-15.0) % Plt Count 305 (130-450) 10^3/uL MPV 9.8 (7.9-10.8) fL Neut # (Auto) 5.3 (1.5-6.6) 10^3/uL Lymph # (Auto) 1.7 (1.5-3.5) 10^3/uL [place] # (Auto) 1.1 H (0.0-1.0) 10^3/uL Eos # (Auto) 0.3 (0.0-0.7) 10^3/uL Baso # (Auto) 0.1 (0.0-0.1) 10^3/uL Absolute Nucleated RBC 0.00 x10^3/uL Nucleated RBC % 0.0 /100WBC Sodium 134 L (135-145) mmol/L Potassium 4.1 (3.5-4.5) mmol/L Chloride 101 (101-111) mmol/L Carbon Dioxide 26 (21-32) mmol/L Anion Gap 7.0 (6-13) BUN 17 (6-20) mg/dL Creatinine 0.8 (0.6-1.3) mg/dL Estimated GFR (MDRD) 69 L (>89) Glucose 113 H (74-104) mg/dL Calcium 8.9 (8.5-10.3) mg/dL Assessment/Plan Problem List (1) Subcapital fracture of left hip: Impression: Patient presented with mechanical fall. CT of the pelvis shows left femoral neck subcapital fracture with minimal impaction. Patient's last dose of Eliquis was 08/04. Plan is for orthopedic surgical repair today, delayed due to power outage status. Plan for PT evaluation following this. Continue multimodal pain management with scheduled Tylenol, gabapentin, topical lidocaine patch. Continue oxycodone for moderate pain, Dilaudid for severe pain, Flexeril as needed for spasms. Heparin subcu was ordered for DVT prophylaxis; NPO for surgery at this time. Qualifiers: Encounter type: initial encounter Fracture type: closed Qualified Code(s): S72.012A - Unspecified intracapsular fracture of left femur, initial encounter for closed fracture (2) Chronic pain: Impression: She is on scheduled Tylenol already outpatient. She takes 5 mg oxycodone twice daily as needed for breakthrough pain at home. She says she takes this most days. Patient has been on prednisone 10 mg daily for cervical spine pain. This is likely not effective in the postacute phase. This actually may delay healing. Opting not to continue. Discontinue prednisone on discharge. Will monitor for symptoms of adrenal insufficiency, unlikely but possible on doses of 10 mg going for 6 months. Continue home scheduled sennosides as well as MiraLAX. 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 In reviewing the ED documentation, they did discuss with the patient, and she stated that this was stable. Of note the radiologist compared to a study from December of this year. Her initial injury was in May 2024. She wore a c-collar for 3 months following. It was read as being unchanged from 2023 when surveilled in December 2024. Specifically the study from 08/05/2025 reads that she has had "progressive posterior subluxation of the clivus relative to the atlas with progressive narrowing of the craniocervical junction." That being said she is neurovascularly intact. She has good sensation and can move with limitations of her pain. She moves both her upper extremities equally. She has no deficits. No autonomic instability. She has not noticed any change in her persistent falls which have been going on for over a year. Continue to clinically monitor neuroexam. Will need ongoing outpatient follow-up with neurosurgery, Her surgeon is at . Qualifiers: Cervical vertebra fracture level: C2 Encounter type: initial encounter Fracture alignment: displaced Fracture morphology: other fracture Fracture type: closed Qualified Code(s): S12.190A - Other displaced fracture of second cervical vertebra, initial encounter for closed fracture (4) Osteoporosis: Impression: Patient with known history of osteoporosis. She is on alendronate 70 mg p.o. She takes her dose every Wednesday. She also takes vitamin D 5000 units p.o. daily. 400 mg of elemental calcium daily in the form of calcium citrate. Resume alendronate on discharge. Continue calcium and vitamin D. Qualifiers: Encounter type: initial encounter Osteoporosis type: age-related P resence of current pathological fracture: with current pathological fracture Q ualified Code(s): M80.00XA - Age-related osteoporosis with current pathological fracture, unspecified site, initial encounter for fracture (5) Iron (Fe) deficiency anemia: Impression: Hemoglobin has remained stable. Trending around 10.5-11. Patient has a history of iron deficiency anemia. Her hemoglobin on arrival is 11.1. This is similar to her baseline which tends to be around 11. No signs of active bleeding. Continue home iron supplement. (6) Atrial fibrillation: Impression: Remained stable and rate controlled. Home medications include metoprolol tartrate 25 mg twice daily as well as Eliquis 2.5 mg daily. Unclear why she is on 2.5 mg Eliquis. Continue Lopressor 25 mg twice daily. Consider discharge on Toprol 50 mg daily. Postoperatively, when safe to do so, we will resume 5 mg Eliquis twice daily. (7) Restless legs syndrome: Impression: Reasonably stable on Mirapex home dose. Patient is aware of new guidelines. She is willing to trial increased dose of gabapentin at night. At this time we will continue her Mirapex 0.25mg qhs. Increase dose of gabapentin nightly to 900 mg.
--- NOTE | 2025-08-09 14:02 | Preop H&P Attestation ---
Preop H&P Attestation H & P: 08/09/25 1401 I Jordan Cedillo DO, confirm that the History & Physical was finalized within the past 30 days.Today, 08/09/25, I conducted a review of the H&P and performed an examination of the patient. H & P Last 30 Days: History & Physical 08/05/25, 16:33 H&P was documented and completed within 30 days - no change: Yes
[2025-08-09] MEDS ORDERED: BUPIVACAINE 0.25% PF 30 ML VIAL ONE ×2 (14:09→14:19)
--- NOTE | 2025-08-09 14:38 | ANESTHESIA PROCEDURE NOTE ---
Pre-Anesthesia VS, & Labs Diagnosis Surgical Diagnosis:: LEft hip fracture Procedure Procedure: left hip hemiarthroplasty Vitals Vital Signs: Temp Pulse Resp BP Pulse Ox 37 C 73 24 111/55 L 95 08/09/25 08:21 08/08/25 23:36 08/09/25 08:21 08/09/25 08:21 08/09/25 08:21 NPO NPO: >8 hours Is Patient ?: Not Applicable Lab Results Current Lab Results: Laboratory Tests 08/09/25 05:13: WBC 8.4, RBC 3.85 L, Hgb 11.4 L, Hct 36.4 L, MCV 94.5, MCH 29.6, MCHC 31.3 L, RDW 13.5, Plt Count 305, MPV 9.8, Neut # (Auto) 5.3, Lymph # (Auto) 1.7, [place] # (Auto) 1.1 H, Eos # (Auto) 0.3, Baso # (Auto) 0.1, Absolute Nucleated RBC 0.00, Nucleated RBC % 0.0, Sodium 134 L, Potassium 4.1, Chloride 101, Carbon Dioxide 26, Anion Gap 7.0, BUN 17, Creatinine 0.8, Estimated GFR (MDRD) 69 L, Glucose 113 H, Calcium 8.9 08/08/25 05:59: WBC 6.3, RBC 3.78 L, Hgb 11.1 L, Hct 36.2 L, MCV 95.8, MCH 29.4, MCHC 30.7 L, RDW 13.6, Plt Count 265, MPV 9.8, Neut # (Auto) 3.7, Lymph # (Auto) 1.5, [place] # (Auto) 0.8, Eos # (Auto) 0.2, Baso # (Auto) 0.1, Absolute Nucleated RBC 0.00, Nucleated RBC % 0.0, Sodium 138, Potassium 4.2, Chloride 105, Carbon Dioxide 27, Anion Gap 6.0, BUN 22 H, Creatinine 0.9, Estimated GFR (MDRD) 60 L, Glucose 91, Calcium 8.8, Magnesium 2.2 08/07/25 04:22: WBC 8.0, RBC 3.40 L, Hgb 9.9 L, Hct 31.8 L, MCV 93.5, MCH 29.1, MCHC 31.1 L, RDW 13.4, Plt Count 264, MPV 10.1, Neut # (Auto) 4.9, Lymph # (Auto) 2.2, [place] # (Auto) 0.8, Eos # (Auto) 0.1, Baso # (Auto) 0.0, Absolute Nucleated RBC 0.00, Nucleated RBC % 0.0, Sodium 132 L, Potassium 4.5, Chloride 100 L, Carbon Dioxide 28, Anion Gap 4.0 L, BUN 25 H, Creatinine 0.9, Estimated GFR (MDRD) 60 L, Glucose 101, Calcium 8.8 08/06/25 04:33: WBC 4.8, RBC 3.61 L, Hgb 10.5 L, Hct 33.7 L, MCV 93.4, MCH 29.1, MCHC 31.2 L, RDW 13.1, Plt Count 266, MPV 9.7, Neut # (Auto) 3.9, Lymph # (Auto) 0.7 L, [place] # (Auto) 0.1, Eos # (Auto) 0.0, Baso # (Auto) 0.0, Absolute Nucleated RBC 0.00, Nucleated RBC % 0.0, Sodium 133 L, Potassium 4.4, Chloride 101, Carbon Dioxide 26, Anion Gap 6.0, BUN 17, Creatinine 0.8, Estimated GFR (MDRD) 69 L, Glucose 162 H, Calcium 8.8 08/05/25 16:50: WBC 9.0, RBC 3.78 L, Hgb 11.1 L, Hct 35.8 L, MCV 94.7, MCH 29.4, MCHC 31.0 L, RDW 13.2, Plt Count 278, MPV 9.7, Neut # (Auto) 6.6, Lymph # (Auto) 1.2 L, [place] # (Auto) 0.8, Eos # (Auto) 0.2, Baso # (Auto) 0.1, Absolute Nucleated RBC 0.00, Nucleated RBC % 0.0, PT 11.5, INR 1.0, Sodium 137, Potassium 4.3, Chloride 101, Carbon Dioxide 26, Anion Gap 10.0, BUN 19, Creatinine 0.9, E stimated GFR (MDRD) 60 L, Glucose 97, Calcium 9.1, Total Bilirubin 0.5, AST 16, ALT 11, Alkaline Phosphatase 73, Total Protein 6.9, Albumin 4.3, Globulin 2.6, Albumin/Globulin Ratio 1.7 Lab results reviewed: Yes 08/09/25 05:13 08/09/25 05:13 Meds/Allgy Home Medications Ambulatory Orders Medication Instructions Recorded Confirmed multivitamin (Daily Multi-Vitamin 1 ea PO DAILY 08/05/25 tablet) acetaminophen 500 mg tablet 1,000 mg (2 x 500 mg) PO Q 6H #90 01/31/24 08/05/25 tabs cholecalciferol (vitamin D3) 125 5,000 unit PO DAILY # 90 caps 01/31/24 08/05/25 mcg (5,000 unit) capsule ferrous sulfate 325 mg (65 mg 325 mg PO DAILY 07/26/24 08/06/25 iron) tablet apixaban 2.5 mg tablet 2.5 mg PO BID #180 tabs 07/2308/05/25 potassium chloride 10 mEq 10 meq PO DAILY 08/01/24 tablet,extended release metoprolol tartrate 25 mg tablet 25 mg PO BID #180 tab s 12/23/24 08/05/25 calcium citrate 200 mg PO BID 12/29/2408/05 gabapentin 600 mg tablet 600 mg PO TID 12/29/2408/05 oxycodone 5 mg tablet 5 mg PO BID PRN Severe 07/0408/05/25 Breakthrough pain(8-10) #56 tabs pramipexole 0.125 mg tablet 0.125 mg PO QPM Restless l eg 07/04/25 08/05/25 syndrome #90 tabs alendronate 70 mg tablet 70 mg PO OAW 08/06/25 Allergies Allergies Allergy/AdvReac Type Severity Reaction Status Date / Time Penicillins Allergy Mild Rash Verified 08/05/25 16:53 Tetracyclines Allergy Mild Rash Verified 08/05/25 16:53 ropinirole (From Requip) Allergy Unknown Verified 08/05/25 16:53 PFSH Active Problems All Active Problems Anticoagulated (Acute) Subcapital fracture of left hip (Acute) Low back pain associated with a spinal disorder other than radiculopathy or spinal stenosis (Acute) Abdominal discomfort in left lower quadrant (Acute) Encounter for medication refill (Acute) Left inguinal hernia (Acute) Lower extremity weakness (Acute) Dyspnea on exertion (Acute) Chronic pain (Chronic) Post menopausal problems (Acute) Hip pain, left (Acute) Iron (Fe) deficiency anemia (Acute) Muscle spasm (Acute) Peripheral edema (Acute) Neuropathy (Acute ~03/09/25) Dorsalgia of cervicothoracic region (Acute) Radiculitis, cervical (Acute) Headache (Acute) Cervical spine fracture (Acute) Osteoporosis (Acute) Atrial fibrillation (Acute) Disorder of iron metabolism, unspecified (Acute) GERD (gastroesophageal reflux disease) (Acute) Restless legs syndrome (Acute) Post-traumatic headache, not intractable (Acute) Medical History Medical History Back pain with history of spinal surgery Esophageal dysmotility Hyponatremia Constipation Anemia Dizziness Dyspnea Chest pain Hip fracture Surgical History Surgical History History of spinal surgery (~2012) scoliosis surgery History of total right knee replacement Closed right hip fracture History of fractures and recent surgeries - Right hip replacement on May 2024 - Patient fell and she reports initially had a hairline fracture that worsened when sent home - Had multiple hospitalizations in March and April - Initially had plates and screws placed, which failed, then had complete hip replacement - Currently using a walker for mobility Hx of repair of right rotator cuff Hx of repair of left rotator cuff History of bilateral cataract extraction History of partial hysterectomy Hx of right breast biopsy History of tonsillectomy History of reverse total replacement of right shoulder joint (~02/28/18) History of total left knee replacement (~06/11/23) Family History Family History Mother CVA (cerebral vascular accident) Father Alzheimers disease Maternal grandfather Diabetes Paternal grandfather Diabetes Social History Social History Smoking Status: Never smoker Second hand tobacco smoke exposure: No Do you dip or chew tobacco?: No Do you vape?: Yes Patient requests smoking cessation consult: No Initiate information on smoking cessation: No Living arrangement: At home (with her who has disability related to CVA) Marital Status: Living Condition: With spouse/s.o. 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 No extension. ) Mallampati classification: II Thyromental Distance: 4-6 cm Exam Exam Vital Signs: Vital Signs x48h Temp Resp BP Pulse Ox 08/09/25 08:21 37 C 24 111/55 L 95 Plan Problem List (1) Cervical spine fracture: Plan: Patient has a chronic cervical spine fracture that has been followed by neurology. She has not been in a or using a C collar. Discussed with her concern about neck manipulation/movement while under general anesthesia. She denies any neurological symptoms. Plan to use glidescope and soft neck collar to prevent unnecessary neck manipulation while under anesthesia. Will have RN stablize neck during intubation. Qualifiers: Cervical vertebra fracture level: C2 Encounter type: initial encounter Fracture alignment: displaced Fracture morphology: other fracture Fracture type: closed Qualified Code(s): S12.190A - Other displaced fracture of second cervical vertebra, initial encounter for closed fracture Plan Anesthesia Type: General and Fascia Iliaca Block (left ) Consent for Procedure(s) Verified and Reviewed: Yes Code Status: Attempt Resuscitation ASA Classification ASA classification: 3-Severe systemic disease Is this case an emergency?: No
[2025-08-09] MEDS ORDERED: fentaNYL 100 MCG/2 ML VIAL ONE (14:43)
[2025-08-09] MEDS ORDERED: PROPOFOL 200 MG/20 ML VIAL IVP ONE (14:43)
[2025-08-09] MEDS ORDERED: ROCURONIUM 50 MG/5 ML VIAL ONE (14:44)
[2025-08-09] MEDS ORDERED: PHENYLEPHRINE HCL 0.5 MG/5 ML AMPULE ONE (15:11)
[2025-08-09] MEDS ORDERED: PHENYLEPHRINE 10 MG/ML VIAL ONE (15:16)
[2025-08-09] MEDS ORDERED: SUGAMMADEX 200 MG/2 ML VIAL IVP ONE (15:58)
[2025-08-09] MEDS ORDERED: HYDROmorphone 0.5 MG/0.5 ML SYRINGE ONE ×2 (16:51→17:07)
[2025-08-09] MEDS ORDERED: ATROPINE ABBOJECT 1 MG/10 ML SYRINGE IVP PRN (16:53)
[2025-08-09] MEDS ORDERED: METOCLOPRAMIDE 10 MG/2 ML VIAL IVP PRN (16:53)
[2025-08-09] MEDS ORDERED: ePHEDrine 50 MG/ML VIAL IVP PRN (16:53)
[2025-08-09] MEDS ORDERED: NALOXONE 0.4 MG/ML VIAL IVP PRN (16:53)
[2025-08-09] MEDS ORDERED: ONDANSETRON 4 MG/2 ML VIAL IVP PRN (16:53)
[2025-08-09] MEDS ORDERED: MORPHINE 2 MG/ML CARPUJECT IVP PRN (16:53)
[2025-08-09] MEDS ORDERED: fentaNYL 100 MCG/2 ML VIAL IVP PRN (16:53)
[2025-08-09] MEDS: HYDROmorphone 0.5 MG/0.5 ML SYRINGE IVP PRN (16:56)
[2025-08-09] MEDS: LACTATED RINGERS 1,000 ML IV SCH (16:57)
--- NOTE | 2025-08-09 17:09 | XRAY Report ---
PROCEDURE: XR Hip w/Pelvis 2-3V LT INDICATIONS: postop; low Ap PELVIS TECHNIQUE: AP pelvis with lateral view(s) of the hip(s). COMPARISON: None. FINDINGS: Left hip hemiarthroplasty. Acute postsurgical soft tissue gas along the left thigh with skin froy. Right femoral replacement. Partially imaged hardware in the sacrum and iliacs. No acute fracture or hardware failure. IMPRESSION: Acute postsurgical changes Reviewed by: Paul Velasquez MD on 08/09/2025 5:05 PM PST Approved by: Paul Velasquez MD on 08/09/2025 5:05 PM PST Station ID: [email or web address]
--- NOTE | 2025-08-09 17:22 | ANESTHESIA POST OP EVALUATION ---
Anesthesia Post Eval Post Anesthesia Eval Vitals: Last Vital Signs Temp 36.6 C 08/09/25 17:15 Pulse 88 08/09/25 17:20 Resp 24 08/09/25 17:20 BP 126/67 08/09/25 17:20 Pulse Ox 94 08/09/25 17:20 CV Function Including HR & BP: Stable Pain Control: Satisfactory and Additional Therapies Ordered (dilaudid in PACU to floor, ) Nausea & Vomiting: Negative Mental Status: Baseline Respiratory Status: Airway Patent Hydration Status: Satisfactory Anesthesia Complications: None
[2025-08-09] MEDS: APIXABAN 2.5 MG TABLET PO SCH (21:26)
--- NOTE | 2025-08-09 23:15 | PROVIDER PROGRESS NOTE ---
Hospitalist Cross-cover Note Cross-Cover Note Cross-Cover Note: per rn " Pt got back from surgery on fractured left hip around 1730 this evening. Pt tolerating PO intake but has BPs that are soft and only had 250 mls output for her avelar catheter this shift. Would you like to start some IV fluids? Thank you!" lr @ 125/hr started
[2025-08-10] MEDS: LACTATED RINGERS 1,000 ML IV SCH (00:20)
[2025-08-10] MEDS: SODIUM CHLORIDE 0.9% 1,000 ML IV SCH (07:40)
[2025-08-10 08:00] LABS: HCT - HEMATOCRIT 29.9 % (37.0-47.0); HGB - HEMOGLOBIN 9.7 g/dL (12.0-16.0); MEAN PLATELET VOLUME 9.6 fL (7.9-10.8); PLT - PLATELET COUNT 236.0 10^3/uL (130-450); RED CELL DISTRIBUTION WIDTH 13.3 % (12.0-15.0)
--- NOTE | 2025-08-10 08:04 | POST OP PROGRESS NOTE ---
Subjective General Admit Date: 08/05/25 Procedure Date: 08/09/25 Post Op Days: 1 Procedure Performed: Bipolar hemiarthroplasty left hip Ortho Surgical Progress Note Problem List Problem List: Med management per hospitalist team Pain control/bowel regimen Out of bed to chair daily at minimum PT OT: Weightbearing as tolerated, ambulate daily. Reinforce dressing as needed. Continue Eliquis for DVT prophylaxis. Continue IS Follow-up office 10 to 14 days for wound check and staple removal Orthopedics will follow. Discussed with Dr. Cedillo Review of Systems Status of ROS: 10 or more systems reviewed and unremarkable except as noted in history and below Exam Exam Vital Signs: Vital Signs x48h Temp Pulse Resp BP Pulse Ox O2 Flow Rate 08/10/25 04:00 37.1 C 67 16 113/84 95 0 08/10/25 00:58 37.2 C 58 L 16 150/48 H 95 0 08/10/25 00:10 37.2 C 60 15 142/48 H 93 General appearance: alert, awake, oriented x 3, well-nourished Fracture: L Subcapital femoral neck fracture Head/Eyes: atraumatic Extremities/Vascular: pedal pulses intact Musculoskeletal: Dressing clean dry and intact to left hip. Moves all.Compartments soft Neuro/BOAT JOINER HELPER: alert, follows commands; NVI Skin: warm, dry, without erythema, warmth, ecchymosis or obvious clinical deformity Psychiatry: normal affect
[2025-08-10 08:21] LABS: BUN - BLOOD UREA NITROGEN 16.0 mg/dL (6-20); CARBON DIOXIDE - CO2 24.0 mmol/L (21-32); CREATININE 0.7 mg/dL (0.6-1.3); GFR - MDRD 80.0 (>89)
[2025-08-10] MEDS: APIXABAN 5 MG TABLET PO SCH (09:45)
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
[2025-08-10] MEDS: BENZOCAINE/MENTHOL LOZENGE MM PRN (16:00)
--- NOTE | 2025-08-10 16:15 | PT Plan of Care ---
PT Plan of Care Physical Therapy Plan of Care: Diagnosis Diagnosis L femur fx Diagnosis L bipolar hemiarthroplasty 08/09/25 Referring Provider Fabiola Chandler Patient Status Inpatient Chief Complaint Chief Complaint L hip pain, weakness, somnolence Onset of Chief Complaint [employer] Medical History (Updated 08/06/25 @ 07:19 by Fabiola Chandler PA-C) Back pain with history of spinal surgery Esophageal dysmotility Hyponatremia Constipation Anemia Dizziness Dyspnea Chest pain Hip fracture Surgical History (Updated 06/04/25 @ 07:27 by Dee Brown, DO) History of spinal surgery (~2012) scoliosis surgery History of total right knee replacement Closed right hip fracture History of fractures and recent surgeries - Right hip replacement on May 2024 - Patient fell and she reports initially had a hairline fracture that worsened when sent home - Had multiple hospitalizations in March and April - Initially had plates and screws placed, which failed, then had complete hip replacement - Currently using a walker for mobility Hx of repair of right rotator cuff Hx of repair of left rotator cuff History of bilateral cataract extraction History of partial hysterectomy Hx of right breast biopsy History of tonsillectomy History of reverse total replacement of right shoulder joint (~02/28/18) History of total left knee replacement (~06/11/23) Balance/ Functional Results Sitting Balance Poor Standing Balance Unable Assessment Assessment Pt is a pleasant 84yo F referred for PT eval s/p fall at home resulting in L humeral fx. POD#1 s /p bipolar L hip hemiarthroplasty. WBAT per ortho. Of note pt has complex medical and surgical hx including R hip fx and sx, cervical spine fracture of C2 transverse processes. Per chart review c-spine fx was May 2024, per pt report c-spine injury was 2024. Per hospitalist, the study from 08/05/2025 reads that she has had "progressive posterior subluxation of the clivus relative to the atlas with progressive narrowing of the craniocervical junction. Cleared for eval by hospitalist and ortho. Upon PT eval, pt reports moderate pain in L hip and minimal pain in neck but reports constant low grade to moderate headache since initial c- spine fx. Presents with torticollis and limited jaw opening with some garbled speech. No apparent neuro deficits though difficult to establish msk weakness vs neuromsk fatigable weakness d/t pain and limited mobility. BUE elevation < shoulder height, spool sander strength profoundly weak. Pt is shelley to transfer to EOB with mod to maxAx2 and sits at EOB with minAx1 approx 4. Pt is unable to progress to standing today d/t pain, weakness, somnolence and dizziness with brief period of sitting. Pt may benefit from continued skilled PT to progress upright tolerance but overall presents with low rehab potential. That said she is motivated and participatory and was ambulatory prior to admit. When medically clear, PT rec dc to SNF in effort to maximize functional indep. Goals Improve bed mobility to: Minimal Assist Improve supine to sit to: Minimal Assist Improve sit to stand to: Moderate Assist Improve pivot transfer ability Moderate Assist to: Improve sit to supine to: Minimal Assist Improve gait ability to: Mod A Assistive Device Used: Front Wheeled Walker Improve Sitting Balance to: Fair Improve Standing Balance to: Fair PT Plan of Care Frequency 1-2x/day Duration Until discharge Discharge Recommendations Discharge Location Custodial Facility Transport Needs at Discharge B.L.S Other BLS d/t recent fx, unable to sit unsupported, poor trunk control
[2025-08-11 07:51] LABS: HCT - HEMATOCRIT 29.8 % (37.0-47.0); HGB - HEMOGLOBIN 9.3 g/dL (12.0-16.0); MEAN PLATELET VOLUME 10.0 fL (7.9-10.8); PLT - PLATELET COUNT 236.0 10^3/uL (130-450); RED CELL DISTRIBUTION WIDTH 13.4 % (12.0-15.0)
[2025-08-11 08:04] LABS: BUN - BLOOD UREA NITROGEN 11.0 mg/dL (6-20); CARBON DIOXIDE - CO2 26.0 mmol/L (21-32); CREATININE 0.6 mg/dL (0.6-1.3); GFR - MDRD 95.0 (>89)
[2025-08-11 08:31] VITALS: TEMP 98.2
--- NOTE | 2025-08-11 08:51 | POST OP PROGRESS NOTE ---
Subjective General Admit Date: 08/05/25 Procedure Date: 08/09/25 Post Op Days: 2 Procedure Performed: Bipolar hemiarthroplasty left hip Ortho Surgical Progress Note Problem List Problem List: Left Femoral Neck Fracture: see below Headaches: chronic, per IM team Bradycardia: chronic per IM team Assessment & Plan Assessment: Left Femoral Neck fx, s/p Hip zane on 08/09/2025 Plan of Treatment: Med management per hospitalist team Pain control/bowel regimen in place Out of bed to chair daily at minimum PT OT: Weightbearing as tolerated, ambulate daily. Ok to change dressing prior to discharge Continue Eliquis for DVT prophylaxis. Continue IS Orthopedics will follow. Discharge Instructions Discharge Instructions: Follow-up office 10 to 14 days for wound check and staple removal Exam Exam Vital Signs: Vital Signs x48h Temp Pulse Resp BP Pulse Ox 08/11/25 08:30 36.8 C 86 18 132/67 H 95 General appearance: alert, awake, oriented x 3, well-nourished Fracture: L Subcapital femoral neck fracture Head/Eyes: atraumatic Extremities/Vascular: pedal pulses intact Musculoskeletal: Dressing clean dry and intact to left hip. 5/5 AT/GS/EHL. SILT to DPN/SPN/Tibial/Sural nerve distributions Neuro/LINE SERVICE TECHNICIAN: alert, follows commands; NVI Skin: warm, dry, without erythema, warmth, ecchymosis or obvious clinical deformity Psychiatry: normal affect
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
[2025-08-11 14:23] VITALS: BP 109/52; O2SAT 93
--- NOTE | 2025-08-14 09:38 | OPERATIVE REPORT ---
Operative Report General Admit Date: 08/05/25 Procedure Data: Operation Date: 08/09/25 13:45 Proposed Procedures p Hip Hemiprosthesis(Left) - Jordan Cedillo DO Actual Procedures p Hip Hemiprosthesis(Left) - Jordan Cedillo, Anesthesia Type General Case Staff Anesthesia Provider: Aixa Kraft Assisting Provider: Fabiola Chandler Rep: CHELI COLLINS - ELEANOR/BIOMET. Case Times Into Recovery: 08/09/25 16:37 Procedure Start: 08/09/25 15:26 Procedure End: 08/09/25 16:35 Time out: 08/09/25 15:25 Implants SHELL 43MM TPRLC FEM RDCD DIST [id number] HEAD COCR 28MM -[id number] Pre-Op Diagnosis: Left hip displaced femoral neck fracture Post Op Diagnosis: Left hip displaced femoral neck fracture Procedure Note Indications: Left hip femoral neck displaced fracture Complications: None Other Other Information/Narrative: Hip hemiarthroplasty is a complex procedure needing an junior administrative assistant. AUSTIN Brewer assisted in the case to help with retraction and leg positioning while I placed the prosthesis into the femur. Patient was taken to the operative suite and after undergoing a general anesthetic was placed in the lateral recumbent position with the left hip exposed. The left hip was prepped and draped in usual sterile fashion. We made a 15 cm incision over the greater trochanteric region dissection was taken down to the tensor fascia jose ramon and this was incised longitudinally. We then put the Charnley in place and identified the gluteus medius and minimus and resected the anterior half off of the its insertion point on the greater trochanter. We were then able to see the femoral neck and it was a subcapital fracture that was displaced so we measured about 6 to 7 mm above the lesser trochanter and we made our femoral neck cut and resected any of that excess femoral neck bone. We then had access into the acetabulum and we could see the broken femoral head and with the use of the corkscrew we put this into the femoral head and with the help of the skid we were able to get the femoral head out. We then measured it to be a 43 mm so this was our size for our implant. We then turned our direction back towards the femur put the leg in the bag and first used the box osteotome then the canal finder then the lateralizer and then we started concentric broaching we broached up until the appropriate size which was an 11. We inserted the 11 standard stem and then we measured the neck length off of the stem and -6 was found to be the appropriate neck length. We assembled the bipolar mechanism on the back table and then inserted it into the body onto the femoral stem and secured it into place we reduced the hip took it through full range of motion and it was found to be very stable. We then did a thorough irrigation. We closed the gluteus medius and minimus back down to its insertion site on the greater trochanter through 3 drill holes in the greater troches. We then over sewed it with a #1 Vicryl. We then used strata fix to close the fascial layer the subcu was closed with a 2-0 Vicryl the skin was closed with froy resting was applied and the patient was awakened and transferred stable to recovery room sterile
== END 2025-08-11 14:23 | DRG 522 ==
LOC: ED 15:48 → MS3 16:27
PROVIDERS: ADMIT Student in an Organized Health Care Education/Training Program; ATTEND Student in an Organized Health Care Education/Training Program
PROC: HEMIHIP (2025-08-09 13:45)
DX: G89.29 Other chronic pain; G25.81 Restless legs syndrome; D50.9 Iron deficiency anemia, unspecified; S12.100K Unspecified displaced fracture of second cervical vertebra, subsequent encounter for fracture with nonunion; R51.9 Headache, unspecified; Z79.01 Long term (current) use of anticoagulants; F17.290 Nicotine dependence, other tobacco product, uncomplicated; S72.012A Unspecified intracapsular fracture of left femur, initial encounter for closed fracture; W19.XXXA Unspecified fall, initial encounter; Z79.899 Other long term (current) drug therapy; I48.20 Chronic atrial fibrillation, unspecified; X58.XXXD Exposure to other specified factors, subsequent encounter; S12.000K Unspecified displaced fracture of first cervical vertebra, subsequent encounter for fracture with nonunion; I48.91 Unspecified atrial fibrillation; M81.0 Age-related osteoporosis without current pathological fracture; F11.20 Opioid dependence, uncomplicated